=== PATIENT | female | born 1945 ===

== ENCOUNTER 2016-10-19 09:54 | Inpatient (IN) | payer OTHER ==
[2016-10-19] MEDS ORDERED: Morphine 4 mg/ml ISec IVP STA (10:34)
[2016-10-19] MEDS ORDERED: Sodium Chloride 0.9% 1,000 ML IV STA (10:34)
--- NOTE | 2016-10-19 10:38 | ED PDOC ---
Arrival/HPI - General Chief Complaint: Abdominal Pain Time Seen by Provider: 10/19/16 10:20 Historian: Patient - History of Present Illness Narrative History of Present Illness (Text): 10/19/16 10:35 A 70 year old female presents to the emergency room with complaints of abdominal pain for 2 days. Patient reports the pain is worst in the LLQ. Patient denies any nausea, vomiting, diarrhea, back pain, fever, any urinary symptoms, or any other complaints. Patient notes a 40 lbs weight loss within the last 6 months without dieting. Patient denies a history of smoking or ETOH use. PMD: Dr. Segal Time/Duration: < week (2 days) Symptom Onset: Sudden Symptom Course: Unchanged Severity Level: Moderate Activities at Onset: Light Context: Home Associated Symptoms (Text): 10/19/16 10:47 Two day history of abdominal pain with no nausea vomiting or diarrhea. No genitourinary symptoms. Pain seems to have localized in the left lower quadrant. There is also a 40 pound weight loss over the last 6 months. Past Medical History - Provider Review Nursing Documentation Reviewed: Yes - Infectious Disease Hx of Infectious Diseases: None - Reproductive Menopause: Yes - Cardiac Hx Cardiac Disorders: No Hx Hypertension: Yes - Pulmonary Hx Respiratory Disorders: No - Neurological Hx Neurological Disorder: No - HEENT Hx HEENT Disorder: No (WEARS RX GLASSES) - Renal Hx Renal Disorder: No - Endocrine/Metabolic Hx Endocrine Disorders: Yes Hx Hypothyroidism: Yes - Hematological/Oncological Hx Blood Disorders: No - Integumentary Hx Dermatological Disorder: No - Musculoskeletal/Rheumatological Hx Musculoskeletal Disorders: Yes Hx Falls: No Hx Unsteady Gait: Yes - Gastrointestinal Hx Gastrointestinal Disorders: Yes (CONSTIPATION,LOST 40 LBS WITHIN 2 MONTHS) Hx Diverticulitis: Yes (02/08/12) - Genitourinary/Gynecological Hx Genitourinary Disorders: Yes (URINARY FREQUENCY,UTERINE PROLAPSE) - Psychiatric Hx Psychophysiologic Disorder: No Hx Depression: No Hx Emotional Abuse: No Hx Physical Abuse: No Hx Substance Use: No - Anesthesia Hx Anesthesia: No Hx Anesthesia Reactions: No Hx Malignant Hyperthermia: No - Suicidal Assessment Feels Threatened In Home Enviroment: No Family/Social History - Physician Review Nursing Documentation Reviewed: Yes Family/Social History: No Known Family HX Smoking Status: Never Smoked Hx Alcohol Use: No Hx Substance Use: No Hx Substance Use Treatment: No Allergies/Home Meds Allergies/Adverse Reactions: Allergies No Known Allergies Allergy (Verified 02/15/15 18:33) Home Medications: Home Meds Medication Instructions Recorded Confirmed Lisinopril/Hydrochlorothiazide 1 tab PO DAILY 10/19/16 10/19/16 [Lisinopril-Hydrochlorothiazide 25 mg-20 mg] Warfarin [Coumadin] 5 mg PO DAILY 10/19/16 10/19/16 Review of Systems - Physician Review All systems were reviewed & negative as marked: Yes - Review of Systems Constitutional: Fatigue, Weight Change (40 lbs weight loss within the last 6 months without dieting). absent: Fevers, Night Sweats Respiratory: absent: SOB, Cough Cardiovascular: absent: Chest Pain, Palpitations, Syncope Gastrointestinal: Abdominal Pain (Worst in LLQ). absent: Diarrhea, Nausea, Vomiting Genitourinary Female: absent: Dysuria, Frequency, Hematuria, Vaginal Bleeding, Vaginal Discharge Musculoskeletal: absent: Back Pain Neurological: absent: Headache, Dizziness Physical Exam Vital Signs Reviewed: Yes Vital Signs Temp Pulse Resp BP Pulse Ox 10/19/16 14:44 75 18 130/60 97 10/19/16 12:10 72 14 130/64 98 10/19/16 11:08 73 18 158/79 H 97 10/19/16 10:13 98.4 F 84 16 164/82 H 96 Temperature: Afebrile Blood Pressure: Hypertensive Pulse: Regular Respiratory Rate: Normal Appearance: Positive for: Uncomfortable Pain Distress: Mild Mental Status: Positive for: Alert and Oriented X 3 - Systems Exam Head: Present: Atraumatic, Normocephalic Pupils: Present: PERRL Extroacular Muscles: Present: EOMI Conjunctiva: Present: Normal Mouth: Present: Moist Mucous Membranes Pharnyx: No: ERYTHEMA, EXUDATE, TONSILS ENLARGED Neck: Present: Normal Range of Motion. No: MIDLINE TENDERNESS, Paraspinal Tenderness Respiratory/Chest: Present: Clear to Auscultation, Good Air Exchange. No: Respiratory Distress, Accessory Muscle Use Cardiovascular: Present: Irregular Rhythm (Irregularly irregular rhythm. Normal rate). No: Tachycardic Abdomen: Present: Tenderness (Mild LLQ tenderness), Normal Bowel Sounds. No: Distention, Peritoneal Signs, Rebound, Guarding Back: Present: Other (Midline cervical scar). No: CVA Tenderness, Midline Tenderness, Paraspinal Tenderness Upper Extremity: Present: Normal Inspection, Normal ROM. No: Tenderness, Swelling Lower Extremity: Present: Normal Inspection, Normal ROM. No: Tenderness, Swelling Neurological: Present: GCS=15, CN II-XII Intact, Speech Normal, Motor Func Grossly Intact Skin: Present: Warm, Dry, Normal Color. No: Rashes Psychiatric: Present: Alert, Oriented x 3, Normal Insight, Normal Concentration Medical Decision Making ED Course and Treatment: 10/19/16 10:41 Impression: A 70 year old female with abdominal pain. Mild LLQ tenderness noted on PE. Plan: -- Abdomen & Pelvis CT -- EKG -- Chest X-ray -- Labs/Urinalysis -- Zofran & Morphine -- Reassess and disposition Progress Notes: 10/19/16 11:45 EKG shows atrial fibrillation rate approximately [address] and T- wave changes 10/19/16 12:49 Dr Segal refers to the hospitalist for admission - Lab Interpretations Lab Results: 10/19/16 11:00 10/19/16 11:00 Lab Results 10/19/16 11:00: Sodium 129 L, Potassium 3.9, Chloride 92 L, Carbon Dioxide 28, Anion Gap 13, BUN 12, Creatinine 0.7, Est GFR ( Amer) > 60, Est GFR (Non- Af Amer) > 60, Random Glucose 111 H, Calcium 9.4, Total Bilirubin 1.1, AST 20, ALT 24, Alkaline Phosphatase 93, Lactate Dehydrogenase 374, Total Creatine Kinase 64, Troponin I < 0.01, Total Protein 8.0, Albumin 4.2, Globulin 3.8, Albumin/Globulin Ratio 1.1, Amylase 54, Lipase 46 10/19/16 11:00: PT 31.4 H*, INR 2.91 H, APTT 42.8 H 10/19/16 11:00: WBC 8.4 D, RBC 4.71, Hgb 13.5, Hct 38.8, MCV 82.4, MCH 28.7, MCHC 34.8, RDW 13.8, Plt Count 225, MPV 10.9, Gran % 85.2 H, Lymph % (Auto) 7.6 L, [place] % (Auto) 7.0 H, Eos % (Auto) 0.1 L, Baso % (Auto) 0.1, Gran # 7.16 H, Lymph # 0.6 L, [place] # 0.6, Eos # 0.0, Baso # 0.01 I have reviewed the lab results: Yes - RAD Interpretation Radiology Orders: 10/19/16 10:34 ABD & PELVIS W/O PO OR IV CONT [CT] Stat 10/19/16 10:35 CHEST PORTABLE [RAD] Stat CT scan of the abdomen and pelvis is read by the radiologist shows acute diverticulitis with no abscess [employer]: Radiologist - Medication Orders Current Medication Orders: Hydrochlorothiazide (Hydrodiuril) 25 mg PO DAILY ANGELITA Sodium Chloride (Sodium Chloride 0.9%) 1,000 mls @ 100 mls/hr IV .Q10H STA Stop: 10/19/16 20:33 Last Admin: 10/19/16 11:13 Dose: 100 mls/hr Sodium Chloride (Sodium Chloride 0.9%) 100 mls @ 75 mls/hr IV .Q1H20M ANGELITA Ceftriaxone Sodium (Rocephin 1 Gram Ivpb) 1 gm in 100 mls @ 100 mls/hr IVPB DAILY ANGLEITA PRN Reason: Protocol Metronidazole (Flagyl) 500 mg in 100 mls @ 100 mls/hr IVPB Q8 ANGELITA PRN Reason: Protocol Levothyroxine Sodium (Synthroid) 88 mcg PO ACB ANGELITA Lisinopril (Zestril) 20 mg PO DAILY ANGELITA Morphine Sulfate (Morphine) 2 mg IVP Q6 PRN PRN Reason: Pain, severe (8-10) Morphine Sulfate (Morphine) 1 mg IVP Q6 PRN PRN Reason: Pain, moderate (4-7) Ondansetron HCl (Zofran Inj) 4 mg IVP Q4 PRN PRN Reason: Nausea/Vomiting Pantoprazole Sodium (Protonix Inj) 40 mg IVP DAILY ANGELITA Warfarin Sodium (Coumadin) 5 mg PO 1800 ANGELITA PRN Reason: Protocol Discontinued Medications Ciprofloxacin (Cipro 400mg/200ml Dsw) 400 mg in 200 mls @ 133.333 mls/hr IV STAT STA PRN Reason: Protocol Stop: 10/19/16 14:06 Last Admin: 10/19/16 14:19 Dose: 133.333 mls/hr Metronidazole (Flagyl) 500 mg in 100 mls @ 100 mls/hr IVPB STAT STA PRN Reason: Protocol Stop: 10/19/16 13:39 Last Admin: 10/19/16 13:00 Dose: 100 mls/hr Morphine Sulfate (Morphine) 4 mg IVP STAT STA Stop: 10/19/16 10:35 Last Admin: 10/19/16 11:13 Dose: 4 mg Non-Formulary Medication (Lisinopril/Hydrochlorothiazide [Lisinopril-Hctz 20-25 Mg Tab]) 1 tab PO DAILY ANGELITA Ondansetron HCl (Zofran Inj) 4 mg IVP STAT STA Stop: 10/19/16 10:35 Last Admin: 10/19/16 11:14 Dose: 4 mg - Scribe Statement The provider has reviewed the documentation as recorded by the Bee Gupta Provider Eleonoraibe Attestation: All medical record entries made by the Bee were at my direction and personally dictated by me. I have reviewed the chart and agree that the record accurately reflects my personal performance of the history, physical exam, medical decision making, and the department course for this patient. I have also personally directed, reviewed, and agree with the discharge instructions and disposition. Disposition/Present on Arrival - Present on Arrival Any Indicators Present on Arrival: No History of DVT/PE: No History of Uncontrolled Diabetes: No Urinary Catheter: No History of Decub. Ulcer: No History Surgical Site Infection Following: None - Disposition Have Diagnosis and Disposition been Completed?: Yes Diagnosis: Acute diverticulitis Disposition: HOSPITALIZED Disposition Time: 12:43 Patient Plan: Admission Patient Problems: Current Active Problems Problem Status Onset Acute diverticulitis Acute Condition: GOOD
[2016-10-19 11:08] LABS: ADD MANUAL DIFF? NO
[2016-10-19 11:15] LABS: BASO # 0.01 K/mm3 (0.0-2.0); BASO % 0.1 % (0.0-3.0); EOS % 0.1 % (1.5-5.0); GRAN # 7.16 (1.4-6.5); GRAN % 85.2 % (50.0-68.0); HEMATOCRIT 38.8 % (36.0-48.0); LYMPH # 0.6 (1.2-3.4); LYMPH % 7.6 % (22.0-35.0); MEAN CELL VOLUME 82.4 fL (80.0-105.0); MEAN CORPUSCULAR HEMOGLOBIN 28.7 pg (25.0-35.0); MEAN CORPUSCULAR HGB CONC 34.8 g/dl (31.0-37.0); MEAN PLATELET VOLUME 10.9 fl (7.0-11.0); MONO # 0.6 (0.1-0.6); PLATELET COUNT 225 10^3/uL (120.0-450.0); RED CELL DISTRIBUTION WIDTH 13.8 % (11.5-14.5); WHITE BLOOD COUNT 8.4 10^3/ul (4.5-11.0)
[2016-10-19 11:22] LABS: ALB/GLOB RATIO 1.1 (1.1-1.8); ALKALINE PHOSPHATASE 93 U/L (38-133); ALT/SGPT 24 U/L (7-56); AMYLASE 54 U/L (35-125); AST/SGOT 20 U/L (15-39); BILIRUBIN,TOTAL 1.1 mg/dL (0.2-1.3); BLOOD UREA NITROGEN 12 mg/dL (7-21); CALCIUM 9.4 mg/dL (8.4-10.5); CARBON DIOXIDE 28 mmol/L (21-33); CHLORIDE 92 mmol/L (98-107); GFR AFRICAN-AMERICAN > 60; GLUCOSE,RANDOM 111 mg/dL (70-110); LIPASE 46 U/L (23-300); POTASSIUM 3.9 mmol/L (3.6-5.0); SODIUM 129 mmol/L (132-148)
[2016-10-19 11:25] LABS: INR 2.91 (0.93-1.08); PARTIAL THROMBOPLASTIN TIME 42.8 Seconds (23.7-30.8)
[2016-10-19 11:40] LABS: TROPONIN I < 0.01 ng/mL
--- NOTE | 2016-10-19 12:18 | CT ---
PROCEDURE: CT Abdomen and Pelvis without intravenous contrast HISTORY: LLQ pain COMPARISON: 02/15/2015 TECHNIQUE: Without contrast.. Contrast Dose: 0 Radiation dose: Total exam DLP = 326.32 mGy-cm. This CT exam was performed using one or more of the following dose reduction techniques: Automated exposure control, adjustment of the mA and/or kV according to patient size, and/or use of iterative reconstruction technique. FINDINGS: LOWER THORAX: Unremarkable. LIVER: Unremarkable. No gross lesion or ductal dilatation. GALLBLADDER AND BILE DUCTS: Unremarkable. PANCREAS: Unremarkable. No gross lesion or ductal dilatation. SPLEEN: Unremarkable. ADRENALS: Mild bilateral adrenal hypertrophy, left greater than right. No adrenal mass. KIDNEYS AND URETERS: Left lower pole renal cyst, 3.9 cm diameter, unchanged. This measures 9 Hounsfield units. No other renal mass is identified. No renal calculus or hydronephrosis. VASCULATURE: Unremarkable. No aortic aneurysm. BOWEL: Sigmoid diverticulosis. Mural thickening of sigmoid colon with surrounding inflammatory change and small amount fluid, consistent with acute sigmoid diverticulitis. No evidence of abscess. No bowel obstruction. There are scattered colonic diverticulae elsewhere. APPENDIX: Unremarkable. Normal appendix. PERITONEUM: Trace fluid in cul-de-sac. LYMPH NODES: Unremarkable. No enlarged lymph nodes. BLADDER: Unremarkable. REPRODUCTIVE: Unremarkable uterus. Left pelvic low-density mass, 4.2 cm. Previously, this measured 3.8 cm on examination of 02/15/2015 and 3.2 cm on examination of 02/08/2012. . This may be of ovarian origin. It measures 8 Hounsfield units in attenuation and is likely cystic. This should be further evaluated with pelvic ultrasound examination. This is abnormal in a 70-year-old woman. BONES: No acute fracture. OTHER FINDINGS: None. IMPRESSION: Findings consistent with acute sigmoid diverticulitis without evidence of abscess. No free air. Slowly enlarging fluid density left adnexal mass. Further evaluation with pelvic ultrasound examination is advised. Left lower pole renal cyst. No other acute abnormality.
--- NOTE | 2016-10-19 12:29 | RAD ---
HISTORY: ap COMPARISON: 02/15/2015 FINDINGS: LUNGS: No active pulmonary disease. PLEURA: No significant pleural effusion identified, no pneumothorax apparent. CARDIOVASCULAR: Normal. OSSEOUS STRUCTURES: No significant abnormalities. VISUALIZED UPPER ABDOMEN: Normal. OTHER FINDINGS: None. IMPRESSION: No active disease.
[2016-10-19] MEDS ORDERED: Ciprofloxacin 400mg/200ml D5W 400 MG/200 ML BAG IV STA (12:37)
[2016-10-19] MEDS ORDERED: metroNIDAZOLE IV 500 mg/100 ml 500 MG/100 ML BAG IVPB STA (12:40)
[2016-10-19 13:19] LABS: URINE BILIRUBIN NEGATIVE (NEGATIVE); URINE BLOOD TRACE-INTACT (NEGATIVE); URINE GLUCOSE (UA) NEGATIVE (NEGATIVE); URINE KETONE 15 mg/dL (NEGATIVE); URINE LEUKOCYTE ESTERASE NEGATIVE Leu/uL (NEGATIVE); URINE PROTEIN NEGATIVE mg/dL (<30 mg/dL); URINE UROBILINOGEN 0.2 E.U./dL (<1 E.U./dL)
[2016-10-19 13:22] LABS: URINE APPEARANCE CLEAR (CLEAR); URINE COLOR YELLOW (YELLOW)
[2016-10-19 13:31] LABS: URINE BACTERIA MOD (NEG)
[2016-10-19] MEDS ORDERED: Morphine 2 mg/ml ISec IVP PRN (13:58)
--- NOTE | 2016-10-19 14:42 | CP.PCM.HP ---
<Merle Mishra - Last Filed: 10/19/16 14:44> History of Present Illness - History of Present Illness History of Present Illness: 70 yo F w/PMHx of [place] on coumadin, hypothyroidism, HTN, diverticulitis, presents with four days of L sided abdominal pain. Denies fever, chest pain, N/ V, diarrhea/constipation, but has SOB with exertion, and 40 lbs weight loss in past few months w/o trying to. Previous admission on 02/08 at [facility] [place] for acute diverticulitis. PMD: dr. jung cardiology: dr pang PMhx: [place] on coumadin, hypothyroidism, HTN, diverticulitis, uterine prolapse Psxhx: denies medications: levothyroxine 88 mcg PO, lisinopril-hctz 25/20mg 1 tab PO qd, coumadin 5mg PO qd all: NKDA social: denies smoking, etoh, illicit drugs Present on Admission - Present on Admission Any Indicators Present on Admission: No Review of Systems - Review of Systems All systems: reviewed and no additional remarkable complaints except - Constitutional Constitutional: Weight Loss. absent: Fever - Cardiovascular Cardiovascular: absent: Chest Pain, Pedal Edema - Gastrointestinal Gastrointestinal: Abdominal Pain. absent: Constipation, Diarrhea - Genitourinary Genitourinary: Change in Urinary Stream. absent: Hematuria Past Patient History - Infectious Disease Hx of Infectious Diseases: None - Past Social History Smoking Status: Never Smoked - CARDIAC Hx Cardiac Disorders: No Hx Hypertension: Yes - PULMONARY Hx Respiratory Disorders: No - NEUROLOGICAL Hx Neurological Disorder: No - HEENT Hx HEENT Problems: No (WEARS RX GLASSES) - RENAL Hx Chronic Kidney Disease: No - ENDOCRINE/METABOLIC Hx Endocrine Disorders: Yes Hx Hypothyroidism: Yes - HEMATOLOGICAL/ONCOLOGICAL Hx Blood Disorders: No - INTEGUMENTARY Hx Dermatological Problems: No - MUSCULOSKELETAL/RHEUMATOLOGICAL Hx Musculoskeletal Disorders: Yes Hx Falls: No Hx Unsteady Gait: Yes - GASTROINTESTINAL Hx Gastrointestinal Disorders: Yes (CONSTIPATION,LOST 40 LBS WITHIN 2 MONTHS) Hx Diverticulitis: Yes (02/08/12) - GENITOURINARY/GYNECOLOGICAL Hx Genitourinary Disorders: Yes (URINARY FREQUENCY,UTERINE PROLAPSE) - PSYCHIATRIC Hx Psychophysiologic Disorder: No Hx Depression: No Hx Emotional Abuse: No Hx Physical Abuse: No Hx Substance Use: No - SURGICAL HISTORY Hx Surgeries: No - ANESTHESIA Hx Anesthesia: No Hx Anesthesia Reactions: No Hx Malignant Hyperthermia: No Meds Allergies/Adverse Reactions: Allergies Allergy/AdvReac Type Severity Reaction Status Date / Time No Known Allergies Allergy Verified 02/15/15 18:33 Physical Exam - Constitutional Appears: Non-toxic, No Acute Distress - Head Exam Head Exam: ATRAUMATIC, NORMOCEPHALIC - Eye Exam Eye Exam: EOMI, Normal appearance - Respiratory Exam Respiratory Exam: Clear to Auscultation Bilateral, NORMAL BREATHING PATTERN - Cardiovascular Exam Cardiovascular Exam: +S1, +S2. absent: Bradycardia - GI/Abdominal Exam GI & Abdominal Exam: Soft. absent: Tenderness - Extremities Exam Extremities exam: Positive for: normal capillary refill. Negative for: pedal edema - Neurological Exam Neurological exam: Alert, Oriented x3 - Skin Skin Exam: Intact, Normal Color Results - Vital Signs Recent Vital Signs: Last Vital Signs Temp 98.4 F 10/19/16 10:13 Pulse 72 10/19/16 12:10 Resp 14 10/19/16 12:10 BP 130/64 10/19/16 12:10 Pulse Ox 98 10/19/16 12:10 - Labs Result Diagrams: 10/19/16 11:00 10/19/16 11:00 Labs: Laboratory Results - last 24 hr 10/19/16 13:00 Urine Color Yellow Urine Appearance Clear Urine pH 7.0 Ur Specific [place] <= 1.005 Urine Protein Negative Urine Glucose (UA) Negative Urine Ketones 15 H Urine Blood Trace-intact H Urine Nitrate Negative Urine Bilirubin Negative Urine Urobilinogen 0.2 Ur Leukocyte Esterase Negative Urine RBC 2 - 5 Urine WBC 2 - 5 Ur Epithelial Cells 3 - 4 Urine Bacteria Mod Assessment & Plan - Assessment and Plan (Free Text) Plan: 70 yo F w/PMHx of a.fib on coumadin, diverticulitis, htn, hypothyroidism, presents with 4 day of L abd pain. CT positive for acute sigmoid diverticulitis and L adnexal mass diverticulitis: clear liquid diet trial ceftriaxone, flagyl GI consult, help appreciated NS 75/hr protonix zofran morphine prn for pain HTN: lisinopril/hctz a.fib: coumadin on hold for inr 2.9 repeat inr tomorrow hypothyroidism: levothyroxine 88mcg L adnexal mass: pelvic US ordered ppx measures: protonix coumadin on hold for today, repeat inr for tomorrow <Yamila Waite - Last Filed: 10/19/16 16:26> Results - Vital Signs Recent Vital Signs: Last Vital Signs Temp 98.4 F 10/19/16 10:13 Pulse 75 10/19/16 14:44 Resp 18 10/19/16 14:44 BP 130/60 10/19/16 14:44 Pulse Ox 97 10/19/16 14:44 - Labs Result Diagrams: 10/19/16 11:00 10/19/16 11:00 Labs: Laboratory Results - last 24 hr 10/19/16 13:00 Urine Color Yellow Urine Appearance Clear Urine pH 7.0 Ur Specific [place] <= 1.005 Urine Protein Negative Urine Glucose (UA) Negative Urine Ketones 15 H Urine Blood Trace-intact H Urine Nitrate Negative Urine Bilirubin Negative Urine Urobilinogen 0.2 Ur Leukocyte Esterase Negative Urine RBC 2 - 5 Urine WBC 2 - 5 Ur Epithelial Cells 3 - 4 Urine Bacteria Mod Attending/Attestation - Attestation I have personally seen and examined this patient.: Yes I have fully participated in the care of the patient.: Yes I have reviewed all pertinent clinical information: Yes Notes (Text): 10/19/16 16:23 70 year old female with past medical history of chronic afib, diverticulitis, hypertension and hypothyroidism who presents with complaint of left sided abdominal pain. CT scan showed acute sigmoid diverticulitis and left adnexal mass. GI evaluation was appreciated. Continue with liquid diet and advance as tolerated. Continue with iv fluids, protonix, antibiotics, and analgesics. Pelvic ultrasound is ordered to evaluate left adnexal mass. She is on coumadin for afib. INR is 2.9 today. Will hold tonight's dose of coumadin and repeat in AM. Continue with home medications for hypertension and hypothyroidism. Yamila Waite MD Hospitalist.
--- NOTE | 2016-10-19 15:41 | CP.PCM.CON ---
<Khloe Hannah - Last Filed: 10/19/16 16:41> History of Present Illness - History of Present Illness History of Present Illness: Gastroenterology Fellow/PGY4 Consult Note 70 year old female with history of Hypertension, Atrial fibrillation on Coumadin , Hypothyroidism, and diverticulitis 01/2015 presenting with abdominal pain. Patient and at bedside describe onset of left lower abdomen pain for four days. Associated loss of appetite and chills for the last two days. Patient saw her PCP last week with recommendation of Probiotics taken for the last two days. Notes small formed bowel movement yesterday with usual bowel habits ever one to two days. Patient notes intermittent constipation relieved by increased food fiber intake and water. Patient with confirm a 44 pound unintentional weight loss over the last two years. Denies nausea, vomiting , fever, sweats, diarrhea, unusual foods, sick contacts, or recent antibiotics. States colonoscopy in 2010 endorsed to be normal. Family-denies colon cancer Social-denies tobacco, alcohol, illicit drug use Surgery-none Review of Systems - Review of Systems Review of Systems: A 12-point review of systems negative except for as above Past Patient History - Infectious Disease Hx of Infectious Diseases: None - Past Social History Smoking Status: Never Smoked - CARDIAC Hx Cardiac Disorders: No Hx Hypertension: Yes - PULMONARY Hx Respiratory Disorders: No - NEUROLOGICAL Hx Neurological Disorder: No - HEENT Hx HEENT Problems: No (WEARS RX GLASSES) - RENAL Hx Chronic Kidney Disease: No - ENDOCRINE/METABOLIC Hx Endocrine Disorders: Yes Hx Hypothyroidism: Yes - HEMATOLOGICAL/ONCOLOGICAL Hx Blood Disorders: No - INTEGUMENTARY Hx Dermatological Problems: No - MUSCULOSKELETAL/RHEUMATOLOGICAL Hx Musculoskeletal Disorders: Yes Hx Falls: No Hx Unsteady Gait: Yes - GASTROINTESTINAL Hx Gastrointestinal Disorders: Yes (CONSTIPATION,LOST 40 LBS WITHIN 2 MONTHS) Hx Diverticulitis: Yes (02/08/12) - GENITOURINARY/GYNECOLOGICAL Hx Genitourinary Disorders: Yes (URINARY FREQUENCY,UTERINE PROLAPSE) - PSYCHIATRIC Hx Psychophysiologic Disorder: No Hx Depression: No Hx Emotional Abuse: No Hx Physical Abuse: No Hx Substance Use: No - SURGICAL HISTORY Hx Surgeries: No - ANESTHESIA Hx Anesthesia: No Hx Anesthesia Reactions: No Hx Malignant Hyperthermia: No Meds Allergies/Adverse Reactions: Allergies Allergy/AdvReac Type Severity Reaction Status Date / Time No Known Allergies Allergy Verified 02/15/15 18:33 - Medications Medications: Current Medications Hydrochlorothiazide (Hydrodiuril) 25 mg PO DAILY [facility] Sodium Chloride (Sodium Chloride 0.9%) 1,000 mls @ 100 mls/hr IV .Q10H STA Stop: 10/19/16 20:33 Last Admin: 10/19/16 11:13 Dose: 100 mls/hr Sodium Chloride (Sodium Chloride 0.9%) 100 mls @ 75 mls/hr IV .Q1H20M [facility] Ceftriaxone Sodium (Rocephin 1 Gram Ivpb) 1 gm in 100 mls @ 100 mls/hr IVPB DAILY [facility] PRN Reason: Protocol Metronidazole (Flagyl) 500 mg in 100 mls @ 100 mls/hr IVPB Q8 [facility] PRN Reason: Protocol Levothyroxine Sodium (Synthroid) 88 mcg PO ACB [facility] Lisinopril (Zestril) 20 mg PO DAILY [facility] Morphine Sulfate (Morphine) 2 mg IVP Q6 PRN PRN Reason: Pain, severe (8-10) Morphine Sulfate (Morphine) 1 mg IVP Q6 PRN PRN Reason: Pain, moderate (4-7) Ondansetron HCl (Zofran Inj) 4 mg IVP Q4 PRN PRN Reason: Nausea/Vomiting Pantoprazole Sodium (Protonix Inj) 40 mg IVP DAILY [facility] Warfarin Sodium (Coumadin) 5 mg PO 1800 [facility] PRN Reason: Protocol Physical Exam - Constitutional Appears: Non-toxic, No Acute Distress - Head Exam Head Exam: ATRAUMATIC, NORMOCEPHALIC - Eye Exam Eye Exam: EOMI, PERRL Pupil Exam: PERRL. absent: Miosis, Mydriatic - ENT Exam ENT Exam: Mucous Membranes Moist, Normal Oropharynx - Neck Exam Neck exam: Positive for: Full Rom, Normal Inspection - Respiratory Exam Respiratory Exam: Clear to Auscultation Bilateral. absent: Rales, Rhonchi, Wheezes - Cardiovascular Exam Cardiovascular Exam: RRR, +S1, +S2. absent: Gallop, Rubs - GI/Abdominal Exam GI & Abdominal Exam: Normal Bowel Sounds, Soft, Tenderness. absent: Distended, Firm, Guarding, Organomegaly, Rebound, Rigid Additional comments: LLQ tenderness to palpation - Extremities Exam Extremities exam: Positive for: normal inspection. Negative for: pedal edema - Neurological Exam Neurological exam: Alert - Psychiatric Exam Psychiatric exam: Normal Affect, Normal Mood - Skin Skin Exam: Dry, Intact, Normal Color, Warm Results - Vital Signs Recent Vital Signs: Last Vital Signs Temp 98.4 F 10/19/16 10:13 Pulse 75 10/19/16 14:44 Resp 18 10/19/16 14:44 BP 130/60 10/19/16 14:44 Pulse Ox 97 10/19/16 14:44 - Labs Result Diagrams: 10/19/16 11:00 10/19/16 11:00 Labs: Laboratory Results - last 24 hr 10/19/16 13:00 Urine Color Yellow Urine Appearance Clear Urine pH 7.0 Ur Specific [place] <= 1.005 Urine Protein Negative Urine Glucose (UA) Negative Urine Ketones 15 H Urine Blood Trace-intact H Urine Nitrate Negative Urine Bilirubin Negative Urine Urobilinogen 0.2 Ur Leukocyte Esterase Negative Urine RBC 2 - 5 Urine WBC 2 - 5 Ur Epithelial Cells 3 - 4 Urine Bacteria Mod Assessment & Plan - Assessment and Plan (Free Text) Assessment: 70 year old female with history of Hypertension, Atrial fibrillation on Coumadin , Hypothyroidism, and diverticulitis 01/2015 presenting with abdominal pain. Note of [address] A/P showing sigmoid diverticulitis and left adnexal 4.2cm mass enlarged compared to pervious studies. States colonoscopy in 2010 endorsed to be normal. Plan: >continue Cipro, Flagyl >supportive care: IVFs, pain control >trial clear liquids, advacne as tolerated >diverticulitis 01/2015 -endorses lost to follow up for colonoscopy surveillance due to loss of insurance >will benefit from colonoscopy with recurrent diverticulitis and unintentional weight loss in 6 to 8 weeks >further recommendations based on clinical course <Giovani Lee - Last Filed: 10/19/16 19:33> Meds - Medications Medications: Current Medications Acetaminophen (Tylenol 325 Mg Supp) 325 mg RC Q6H PRN PRN Reason: Fever >100.4 F Hydrochlorothiazide (Hydrodiuril) 25 mg PO DAILY [facility] Sodium Chloride (Sodium Chloride 0.9%) 1,000 mls @ 100 mls/hr IV .Q10H STA Stop: 10/19/16 20:33 Last Admin: 10/19/16 11:13 Dose: 100 mls/hr Sodium Chloride (Sodium Chloride 0.9%) 100 mls @ 75 mls/hr IV .Q1H20M [facility] Ceftriaxone Sodium (Rocephin 1 Gram Ivpb) 1 gm in 100 mls @ 100 mls/hr IVPB DAILY [facility] PRN Reason: Protocol Last Admin: 10/19/16 15:58 Dose: 100 mls/hr Metronidazole (Flagyl) 500 mg in 100 mls @ 100 mls/hr IVPB Q8 [facility] PRN Reason: Protocol Levothyroxine Sodium (Synthroid) 88 mcg PO ACB [facility] Lisinopril (Zestril) 20 mg PO DAILY [facility] Morphine Sulfate (Morphine) 2 mg IVP Q6 PRN PRN Reason: Pain, severe (8-10) Morphine Sulfate (Morphine) 1 mg IVP Q6 PRN PRN Reason: Pain, moderate (4-7) Ondansetron HCl (Zofran Inj) 4 mg IVP Q4 PRN PRN Reason: Nausea/Vomiting Pantoprazole Sodium (Protonix Inj) 40 mg IVP DAILY [facility] Warfarin Sodium (Coumadin) 5 mg PO 1800 [facility] PRN Reason: Protocol Results - Vital Signs Recent Vital Signs: Last Vital Signs Temp 98.1 F 10/19/16 16:20 Pulse 58 L 10/19/16 16:20 Resp 18 10/19/16 16:20 BP 143/60 10/19/16 16:20 Pulse Ox 98 10/19/16 16:00 - Labs Result Diagrams: 10/19/16 11:00 10/19/16 11:00 Labs: Laboratory Results - last 24 hr 10/19/16 13:00 Urine Color Yellow Urine Appearance Clear Urine pH 7.0 Ur Specific [place] <= 1.005 Urine Protein Negative Urine Glucose (UA) Negative Urine Ketones 15 H Urine Blood Trace-intact H Urine Nitrate Negative Urine Bilirubin Negative Urine Urobilinogen 0.2 Ur Leukocyte Esterase Negative Urine RBC 2 - 5 Urine WBC 2 - 5 Ur Epithelial Cells 3 - 4 Urine Bacteria Mod Attending/Attestation - Attestation I have personally seen and examined this patient.: Yes I have fully participated in the care of the patient.: Yes I have reviewed all pertinent clinical information: Yes Notes (Text): 10/19/16 19:32 70 year old female with history of HTN, Afib, h/o diverticulitis who presents with LLQ pain found to have acute sigmoid diverticulitis. 1. Acute diverticulitis Plan: -continue antibiotics -liquid diet and ADAT -no apparent complications like perf or abscess -colonoscopy in 6-8 weeks -agree with workup for adnexal mass
[2016-10-19] MEDS: cefTRIAXone 1 gm 1 GM/100 ML BAG IVPB SCH (15:58)
[2016-10-19 16:41] VITALS: BMI 25.4
[2016-10-19] MEDS: metroNIDAZOLE IV 500 mg/100 ml 500 MG/100 ML BAG IVPB SCH (21:33)
[2016-10-19] MEDS: Morphine 2 mg/ml ISec IVP PRN (21:33)
[2016-10-19] MEDS: Sodium Chloride 0.9% 100 ML IV SCH (23:38)
[2016-10-20] MEDS: Sodium Chloride 0.9% 100 ML IV SCH (05:31)
[2016-10-20] MEDS: Morphine 2 mg/ml ISec IVP PRN ×3 (05:36→21:09)
[2016-10-20] MEDS: metroNIDAZOLE IV 500 mg/100 ml 500 MG/100 ML BAG IVPB SCH ×3 (05:36→21:12)
[2016-10-20 07:09] LABS: ADD MANUAL DIFF? NO
[2016-10-20 07:18] LABS: BASO # 0.01 K/mm3 (0.0-2.0); BASO % 0.1 % (0.0-3.0); EOS % 0.2 % (1.5-5.0); GRAN # 6.44 (1.4-6.5); GRAN % 79.3 % (50.0-68.0); HEMATOCRIT 34.3 % (36.0-48.0); LYMPH # 0.9 (1.2-3.4); LYMPH % 11.2 % (22.0-35.0); MEAN CELL VOLUME 84.3 fL (80.0-105.0); MEAN CORPUSCULAR HEMOGLOBIN 28.3 pg (25.0-35.0); MEAN CORPUSCULAR HGB CONC 33.5 g/dl (31.0-37.0); MONO # 0.8 (0.1-0.6); MONO % 9.2 % (1.0-6.0); PLATELET COUNT 202 10^3/uL (120.0-450.0); RED CELL DISTRIBUTION WIDTH 14.2 % (11.5-14.5); WHITE BLOOD COUNT 8.1 10^3/ul (4.5-11.0)
[2016-10-20 07:30] LABS: ALKALINE PHOSPHATASE 70 U/L (38-133); ALT/SGPT 22 U/L (7-56); AST/SGOT 19 U/L (15-39); BILIRUBIN,TOTAL 0.6 mg/dL (0.2-1.3); BLOOD UREA NITROGEN 8 mg/dL (7-21); CALCIUM 8.6 mg/dL (8.4-10.5); CARBON DIOXIDE 27 mmol/L (21-33); CHLORIDE 100 mmol/L (95-110); GFR AFRICAN-AMERICAN > 60; GLUCOSE,RANDOM 85 mg/dL (70-110); POTASSIUM 4.5 mmol/L (3.6-5.0); SODIUM 136 mmol/L (132-148); TOTAL PROTEIN 6.4 g/dL (5.8-8.3)
[2016-10-20 07:53] LABS: INR 3.59 (0.93-1.08)
[2016-10-20] MEDS: Levothyroxine 88 MCG TAB PO SCH (08:19)
--- NOTE | 2016-10-20 09:47 | US ---
HISTORY: L adnexal mass COMPARISON: CT abdomen and pelvis 10/19/2016 TECHNIQUE: Transabdominal is the technique utilized FINDINGS: UTERUS: Measures 6.1 x 2.5 x 3.9 cm. Heterogeneous in appearance and anteverted . Probable intrinsic chronic/mild fibroid involvement ENDOMETRIUM: Measures 3.2 mm in diameter. Unremarkable. CERVIX: No cervical abnormality identified. RIGHT OVARY: Not visualized LEFT OVARY: No normal-appearing left ovary is visualized. In the left adnexum there is a 4.1 x 4.0 cm cystic appearing mass. No gross mural thickening or septations are appreciated. The cystic mass is in close proximity with peristalsing heterogeneous bowel on this exam is also noted just cephalad to extensive rectosigmoid diverticulosis and reported findings of diverticulitis FREE FLUID: No significant free fluid noted. OTHER FINDINGS: None. IMPRESSION: Left adnexal cystic mass - approximately 4.1 cm. No normal identifiable ovary contiguous with it is identified. Given patient's advanced age of 70, nonvisualized ovaries are not an uncommon Nevertheless this cystic mass is indeterminate and an abnormal finding in a 70-year-old female. The etiology of this is uncertain. No mural thickening or septations are seen associated with it. Note is made of its proximity with the rectosigmoid diverticulosis and diverticulitis reported. No thickened wall or inflammatory changes intrinsic to the cystic mass on ultrasound or on CT is seen to suggest an abscess or phlegmon. Bar Captain consultation recommended
[2016-10-20] MEDS: cefTRIAXone 1 gm 1 GM/100 ML BAG IVPB SCH (10:11)
--- NOTE | 2016-10-20 10:48 | CP.PCM.PN ---
<TadMerle - Last Filed: 10/20/16 16:09> Subjective - Date & Time of Evaluation Date of Evaluation: 10/20/16 Time of Evaluation: 07:45 - Subjective Subjective: Pt seen and evaluated at bedside. Pt denies SOB, had decreased L abdominal pain , urinary symptoms, and had last BM 2 days prior. Afebrile overnight. Objective - Vital Signs/Intake and Output Vital Signs (last 24 hours): Temp Pulse Resp BP Pulse Ox 97.7 F 59 L 20 135/59 L 99 10/20/16 07:30 10/20/16 07:30 10/20/16 07:30 10/20/16 07:30 10/20/16 07:30 Intake and Output: 10/20/16 10/20/16 06:59 18:59 Intake Total 100 Balance 100 - Medications Medications: Current Medications Acetaminophen (Tylenol 325 Mg Supp) 325 mg RC Q6H PRN PRN Reason: Fever >100.4 F Hydrochlorothiazide (Hydrodiuril) 25 mg PO DAILY [facility] Sodium Chloride (Sodium Chloride 0.9%) 100 mls @ 75 mls/hr IV .Q1H20M [facility] Last Admin: 10/20/16 05:31 Dose: 75 mls/hr Ceftriaxone Sodium (Rocephin 1 Gram Ivpb) 1 gm in 100 mls @ 100 mls/hr IVPB DAILY [facility] PRN Reason: Protocol Last Admin: 10/20/16 10:11 Dose: 100 mls/hr Metronidazole (Flagyl) 500 mg in 100 mls @ 100 mls/hr IVPB Q8 [facility] PRN Reason: Protocol Last Admin: 10/20/16 05:36 Dose: 100 mls/hr Levothyroxine Sodium (Synthroid) 88 mcg PO ACB [facility] Last Admin: 10/20/16 08:19 Dose: 88 mcg Lisinopril (Zestril) 20 mg PO DAILY [facility] Morphine Sulfate (Morphine) 2 mg IVP Q6 PRN PRN Reason: Pain, severe (8-10) Last Admin: 10/20/16 05:36 Dose: 2 mg Morphine Sulfate (Morphine) 1 mg IVP Q6 PRN PRN Reason: Pain, moderate (4-7) Ondansetron HCl (Zofran Inj) 4 mg IVP Q4 PRN PRN Reason: Nausea/Vomiting Pantoprazole Sodium (Protonix Inj) 40 mg IVP DAILY [facility] Last Admin: 10/20/16 10:11 Dose: 40 mg Warfarin Sodium (Coumadin) 5 mg PO 1800 [facility] PRN Reason: Protocol - Labs Labs: 10/20/16 06:30 10/20/16 06:30 PT 38.8 Seconds (9.9-11.8) H* 10/20/16 06:30 INR 3.59 (0.93-1.08) H* 10/20/16 06:30 APTT 42.8 Seconds (23.7-30.8) H 10/19/16 11:00 - Constitutional Appears: Non-toxic, No Acute Distress - Head Exam Head Exam: ATRAUMATIC, NORMOCEPHALIC - Eye Exam Eye Exam: EOMI, Normal appearance - Respiratory Exam Respiratory Exam: Clear to Ausculation Bilateral, NORMAL BREATHING PATTERN - Cardiovascular Exam Cardiovascular Exam: +S1, +S2. absent: Tachycardia - GI/Abdominal Exam GI & Abdominal Exam: Soft. absent: Tenderness - Exam External exam: absent: Ecchymosis, Erythema - Neurological Exam Neurological Exam: Alert, Awake - Skin Skin Exam: Intact, Normal Color Assessment and Plan - Assessment and Plan (Free Text) Plan: 70 yo F w/PMHx of a.fib on coumadin, diverticulitis, htn, hypothyroidism, intially presents with 4 days of L abd pain, and 40 lbs unintentional weight loss over [address] positive for acute sigmoid diverticulitis and L adnexal mass diverticulitis: GI consult, help appreciated rec of out patient colonoscopy for diverticulitis in 6 to 8 weeks from d/c soft diet, ADAT ceftriaxone, flagyl protonix zofran morphine prn for pain HTN: lisinopril, hctz a.fib: coumadin on hold for inr 3.59 repeat inr tomorrow hypothyroidism: levothyroxine 88mcg L adnexal mass: near sigmoid diverticulitis and measuring 4.1 cm on pelvic U/S. Attending spoke to Dr. trujillo, concerning L adnexal cystic mass of 4.1 cm, and he rec'd out patient gynecology. ppx measures: protonix coumadin on hold for today, repeat inr for tomorrow <Yamila Waite A - Last Filed: 10/20/16 16:17> Objective - Vital Signs/Intake and Output Vital Signs (last 24 hours): Temp Pulse Resp BP Pulse Ox 97.7 F 59 L 20 168/86 H 99 10/20/16 07:30 10/20/16 07:30 10/20/16 07:30 10/20/16 15:43 10/20/16 07:30 Intake and Output: 10/20/16 10/20/16 06:59 18:59 Intake Total 100 840 Balance 100 840 - Medications Medications: Current Medications Acetaminophen (Tylenol 325 Mg Supp) 325 mg RC Q6H PRN PRN Reason: Fever >100.4 F Hydrochlorothiazide (Hydrodiuril) 25 mg PO DAILY [facility] Sodium Chloride (Sodium Chloride 0.9%) 100 mls @ 75 mls/hr IV .Q1H20M [facility] Last Admin: 10/20/16 05:31 Dose: 75 mls/hr Ceftriaxone Sodium (Rocephin 1 Gram Ivpb) 1 gm in 100 mls @ 100 mls/hr IVPB DAILY [facility] PRN Reason: Protocol Last Admin: 10/20/16 10:11 Dose: 100 mls/hr Metronidazole (Flagyl) 500 mg in 100 mls @ 100 mls/hr IVPB Q8 [facility] PRN Reason: Protocol Last Admin: 10/20/16 13:25 Dose: 100 mls/hr Levothyroxine Sodium (Synthroid) 88 mcg PO ACB [facility] Last Admin: 10/20/16 08:19 Dose: 88 mcg Lisinopril (Zestril) 20 mg PO DAILY [facility] Morphine Sulfate (Morphine) 2 mg IVP Q6 PRN PRN Reason: Pain, severe (8-10) Last Admin: 10/20/16 10:52 Dose: 2 mg Morphine Sulfate (Morphine) 1 mg IVP Q6 PRN PRN Reason: Pain, moderate (4-7) Ondansetron HCl (Zofran Inj) 4 mg IVP Q4 PRN PRN Reason: Nausea/Vomiting Pantoprazole Sodium (Protonix Inj) 40 mg IVP DAILY [facility] Last Admin: 10/20/16 10:11 Dose: 40 mg Warfarin Sodium (Coumadin) 5 mg PO 1800 [facility] PRN Reason: Protocol - Labs Labs: 10/20/16 06:30 10/20/16 06:30 PT 38.8 Seconds (9.9-11.8) H* 10/20/16 06:30 INR 3.59 (0.93-1.08) H* 10/20/16 06:30 APTT 42.8 Seconds (23.7-30.8) H 10/19/16 11:00 Attending/Attestation - Attestation I have personally seen and examined this patient.: Yes I have fully participated in the care of the patient.: Yes I have reviewed all pertinent clinical information, including history, physical exam and plan: Yes Notes (Text): 10/20/16 16:14 70 year old female with past medical history of chronic afib, diverticulitis, hypertension and hypothyroidism who presented with complaint of left sided abdominal pain. CT scan showed acute sigmoid diverticulitis and left adnexal mass. Her symptoms are improving with iv fluids, analgesics and antibiotics. GI is following. She is on liquid diet; can advance as tolerated. She will need elective colonoscopy in 6-8 weeks. Pelvic ultrasound reviewed above for left adnexal mass. Case was discussed with Dr. Trujillo, locker plant attendant, who also reviewed case and films in addition to her last CT showing the adnexal mass. He recommended close outpatient gynecology follow up. This was discussed with patient, family as well as Dr. Segal who is the patient's PMD. Her INR today is 3.59 so we will hold her coumadin for today. Repeat INR in AM. Continue with home medications for hypertension and hypothyroidism. Yamila Waite MD Hospitalist.
--- NOTE | 2016-10-20 13:15 | CARD ---
APPROVED REPORT EKG Measurement Heart [id number] <Conclusion> Atrial fibrillation Nonspecific T wave abnormality, probably digitalis effect Abnormal ECG
--- NOTE | 2016-10-20 16:24 | CP.PCM.PN ---
<Khloe Hannah - Last Filed: 10/20/16 16:28> Subjective - Date & Time of Evaluation Date of Evaluation: 10/20/16 Time of Evaluation: 16:21 - Subjective Subjective: Gastroenterology Fellow/PGY4 Progress Note Patient notes moderate improvement in left lower abdomen pain. No bowel movement. Tolerating clear liquid diet. A 12-point review of systems negative except for as above. Objective - Vital Signs/Intake and Output Vital Signs (last 24 hours): Temp Pulse Resp BP Pulse Ox 97.7 F 59 L 20 168/86 H 99 10/20/16 07:30 10/20/16 07:30 10/20/16 07:30 10/20/16 15:43 10/20/16 07:30 Intake and Output: 10/20/16 10/20/16 06:59 18:59 Intake Total 100 840 Balance 100 840 - Medications Medications: Current Medications Acetaminophen (Tylenol 325 Mg Supp) 325 mg RC Q6H PRN PRN Reason: Fever >100.4 F Hydrochlorothiazide (Hydrodiuril) 25 mg PO DAILY [facility] Sodium Chloride (Sodium Chloride 0.9%) 100 mls @ 75 mls/hr IV .Q1H20M [facility] Last Admin: 10/20/16 05:31 Dose: 75 mls/hr Ceftriaxone Sodium (Rocephin 1 Gram Ivpb) 1 gm in 100 mls @ 100 mls/hr IVPB DAILY [facility] PRN Reason: Protocol Last Admin: 10/20/16 10:11 Dose: 100 mls/hr Metronidazole (Flagyl) 500 mg in 100 mls @ 100 mls/hr IVPB Q8 [facility] PRN Reason: Protocol Last Admin: 10/20/16 13:25 Dose: 100 mls/hr Levothyroxine Sodium (Synthroid) 88 mcg PO ACB [facility] Last Admin: 10/20/16 08:19 Dose: 88 mcg Lisinopril (Zestril) 20 mg PO DAILY [facility] Morphine Sulfate (Morphine) 2 mg IVP Q6 PRN PRN Reason: Pain, severe (8-10) Last Admin: 10/20/16 10:52 Dose: 2 mg Morphine Sulfate (Morphine) 1 mg IVP Q6 PRN PRN Reason: Pain, moderate (4-7) Ondansetron HCl (Zofran Inj) 4 mg IVP Q4 PRN PRN Reason: Nausea/Vomiting Pantoprazole Sodium (Protonix Inj) 40 mg IVP DAILY [facility] Last Admin: 10/20/16 10:11 Dose: 40 mg Warfarin Sodium (Coumadin) 5 mg PO 1800 [facility] PRN Reason: Protocol - Labs Labs: 10/20/16 06:30 10/20/16 06:30 PT 38.8 Seconds (9.9-11.8) H* 10/20/16 06:30 INR 3.59 (0.93-1.08) H* 10/20/16 06:30 APTT 42.8 Seconds (23.7-30.8) H 10/19/16 11:00 - Constitutional Appears: Non-toxic, No Acute Distress - Head Exam Head Exam: ATRAUMATIC, NORMOCEPHALIC - Eye Exam Eye Exam: EOMI, PERRL Pupil Exam: PERRL. absent: Miosis, Mydriatic - ENT Exam ENT Exam: Mucous Membranes Moist, Normal Oropharynx - Neck Exam Neck Exam: Full ROM, Normal Inspection - Respiratory Exam Respiratory Exam: Clear to Ausculation Bilateral. absent: Rales, Rhonchi, Wheezes - Cardiovascular Exam Cardiovascular Exam: RRR, +S1, +S2. absent: Gallop, Rubs - GI/Abdominal Exam GI & Abdominal Exam: Soft, Tenderness, Normal Bowel Sounds. absent: Distended, Firm, Guarding, Rigid, Organomegaly, Rebound Additional comments: LLQ tenderness to palpation - Extremities Exam Extremities Exam: Normal Inspection. absent: Pedal Edema - Neurological Exam Neurological Exam: Alert, Awake - Psychiatric Exam Psychiatric exam: Normal Affect, Normal Mood - Skin Skin Exam: Dry, Intact, Normal Color, Warm Assessment and Plan - Assessment and Plan (Free Text) Assessment: 70 year old female with history of Hypertension, Atrial fibrillation on Coumadin , Hypothyroidism, and diverticulitis 01/2015 presenting with abdominal pain. Note of [address] A/P showing sigmoid diverticulitis and left adnexal 4.2cm mass enlarged compared to pervious studies. States colonoscopy in 2010 endorsed to be normal. Plan: >continue Cipro, Flagyl >ordered CT A/P PO contrast evaluate ovarian cystic mass in close proximity to diverticulitis >[employer]RIGATOR [employer] PIPE following-outpatient follow up >supportive care: IVFs, pain control >tolerated liquids, advance as tolerated >diverticulitis 01/2015 -endorses lost to follow up for colonoscopy surveillance due to loss of insurance >will benefit from colonoscopy with recurrent diverticulitis and unintentional weight loss in 6 to 8 weeks >further recommendations based on CT A/P PO contrast <Jayant Mcmahan MD - Last Filed: 10/20/16 17:56> Objective - Vital Signs/Intake and Output Vital Signs (last 24 hours): Temp Pulse Resp BP Pulse Ox 98.2 F 76 18 168/81 H 99 10/20/16 16:00 10/20/16 16:00 10/20/16 16:00 10/20/16 16:00 10/20/16 16:00 Intake and Output: 10/20/16 10/20/16 06:59 18:59 Intake Total 100 840 Balance 100 840 - Medications Medications: Current Medications Acetaminophen (Tylenol 325 Mg Supp) 325 mg RC Q6H PRN PRN Reason: Fever >100.4 F Hydrochlorothiazide (Hydrodiuril) 25 mg PO DAILY [facility] Sodium Chloride (Sodium Chloride 0.9%) 100 mls @ 75 mls/hr IV .Q1H20M [facility] Last Admin: 10/20/16 05:31 Dose: 75 mls/hr Ceftriaxone Sodium (Rocephin 1 Gram Ivpb) 1 gm in 100 mls @ 100 mls/hr IVPB DAILY [facility] PRN Reason: Protocol Last Admin: 10/20/16 10:11 Dose: 100 mls/hr Metronidazole (Flagyl) 500 mg in 100 mls @ 100 mls/hr IVPB Q8 [facility] PRN Reason: Protocol Last Admin: 10/20/16 13:25 Dose: 100 mls/hr Levothyroxine Sodium (Synthroid) 88 mcg PO ACB [facility] Last Admin: 10/20/16 08:19 Dose: 88 mcg Lisinopril (Zestril) 20 mg PO DAILY [facility] Morphine Sulfate (Morphine) 2 mg IVP Q6 PRN PRN Reason: Pain, severe (8-10) Last Admin: 10/20/16 10:52 Dose: 2 mg Morphine Sulfate (Morphine) 1 mg IVP Q6 PRN PRN Reason: Pain, moderate (4-7) Ondansetron HCl (Zofran Inj) 4 mg IVP Q4 PRN PRN Reason: Nausea/Vomiting Pantoprazole Sodium (Protonix Inj) 40 mg IVP DAILY [facility] Last Admin: 10/20/16 10:11 Dose: 40 mg Warfarin Sodium (Coumadin) 5 mg PO 1800 [facility] PRN Reason: Protocol - Labs Labs: 10/20/16 06:30 10/20/16 06:30 PT 38.8 Seconds (9.9-11.8) H* 10/20/16 06:30 INR 3.59 (0.93-1.08) H* 10/20/16 06:30 APTT 42.8 Seconds (23.7-30.8) H 10/19/16 11:00 Attending/Attestation - Attestation I have personally seen and examined this patient.: Yes I have fully participated in the care of the patient.: Yes I have reviewed all pertinent clinical information, including history, physical exam and plan: Yes Notes (Text): 10/20/16 17:49 Patient seen with GI fellow. This is a 70 year old female with history of Hypertension, Atrial fibrillation on Coumadin, Hypothyroidism, and diverticulitis 01/2015 presenting with abdominal pain with weight loss. Concerning is CT A/P showing sigmoid diverticulitis and left adnexal 4.2cm mass enlarged compared to pervious studies. Last colonoscopy in 2010 normal. Production Posting Clerk consult will be beneficial as ovarian cystic lesion and diverticulitis is same side and prudent to rule out malignancy. Continue antibiotics. Will get Ct with IV contrast.
[2016-10-20] MEDS ORDERED: Barium Sulfate Susp 2.1% w/v, 2.0% w/w 450 mL Bottle PO ONE (16:35)
[2016-10-21] MEDS: metroNIDAZOLE IV 500 mg/100 ml 500 MG/100 ML BAG IVPB SCH ×2 (06:16→13:43)
[2016-10-21] MEDS: Morphine 2 mg/ml ISec IVP PRN (06:29)
[2016-10-21 06:51] LABS: ADD MANUAL DIFF? NO
[2016-10-21 07:06] LABS: INR 2.71 (0.93-1.08)
[2016-10-21 07:10] LABS: BASO # 0.01 K/mm3 (0.0-2.0); BASO % 0.1 % (0.0-3.0); EOS % 0.3 % (1.5-5.0); GRAN # 7.85 (1.4-6.5); GRAN % 83.7 % (50.0-68.0); HEMATOCRIT 34.8 % (36.0-48.0); LYMPH # 0.8 (1.2-3.4); LYMPH % 8.7 % (22.0-35.0); MEAN CELL VOLUME 84.7 fL (80.0-105.0); MEAN PLATELET VOLUME 11.2 fl (7.0-11.0); MONO # 0.7 (0.1-0.6); MONO % 7.2 % (1.0-6.0); PLATELET COUNT 214 10^3/uL (120.0-450.0); RED CELL DISTRIBUTION WIDTH 14.3 % (11.5-14.5); WHITE BLOOD COUNT 9.4 10^3/ul (4.5-11.0)
[2016-10-21 07:11] LABS: ALKALINE PHOSPHATASE 73 U/L (38-133); ALT/SGPT 27 U/L (7-56); AST/SGOT 22 U/L (15-39); BILIRUBIN,TOTAL 0.7 mg/dL (0.2-1.3); BLOOD UREA NITROGEN 7 mg/dL (7-21); CALCIUM 8.6 mg/dL (8.4-10.5); CARBON DIOXIDE 30 mmol/L (21-33); CHLORIDE 100 mmol/L (98-107); GFR AFRICAN-AMERICAN > 60; GLUCOSE,RANDOM 91 mg/dL (70-110); SODIUM 136 mmol/L (132-148); TOTAL PROTEIN 6.9 g/dL (5.8-8.3)
--- NOTE | 2016-10-21 07:25 | CP.PCM.PN ---
<Khloe Hannah - Last Filed: 10/21/16 08:53> Subjective - Date & Time of Evaluation Date of Evaluation: 10/21/16 Time of Evaluation: 07:22 - Subjective Subjective: Gastroenterology Fellow/PGY4 Progress Note Patient notes moderate improvement in left lower abdomen pain. No bowel movement last three days. Tolerating diet. A 12-point review of systems negative except for as above. Objective - Vital Signs/Intake and Output Vital Signs (last 24 hours): Temp Pulse Resp BP Pulse Ox 98.2 F 76 18 168/81 H 99 10/20/16 16:00 10/20/16 16:00 10/20/16 16:00 10/20/16 16:00 10/20/16 16:00 Intake and Output: 10/21/16 10/21/16 06:59 18:59 Intake Total 480 Balance 480 - Medications Medications: Current Medications Acetaminophen (Tylenol 325 Mg Supp) 325 mg RC Q6H PRN PRN Reason: Fever >100.4 F Hydrochlorothiazide (Hydrodiuril) 25 mg PO DAILY [facility] Sodium Chloride (Sodium Chloride 0.9%) 100 mls @ 75 mls/hr IV .Q1H20M ANGELITA Last Admin: 10/20/16 05:31 Dose: 75 mls/hr Ceftriaxone Sodium (Rocephin 1 Gram Ivpb) 1 gm in 100 mls @ 100 mls/hr IVPB DAILY ANGELITA PRN Reason: Protocol Last Admin: 10/20/16 10:11 Dose: 100 mls/hr Metronidazole (Flagyl) 500 mg in 100 mls @ 100 mls/hr IVPB Q8 ANGELITA PRN Reason: Protocol Last Admin: 10/21/16 06:16 Dose: 100 mls/hr Levothyroxine Sodium (Synthroid) 88 mcg PO ACB ANGELITA Last Admin: 10/20/16 08:19 Dose: 88 mcg Lisinopril (Zestril) 20 mg PO DAILY [facility] Morphine Sulfate (Morphine) 2 mg IVP Q6 PRN PRN Reason: Pain, severe (8-10) Last Admin: 10/21/16 06:29 Dose: 2 mg Morphine Sulfate (Morphine) 1 mg IVP Q6 PRN PRN Reason: Pain, moderate (4-7) Ondansetron HCl (Zofran Inj) 4 mg IVP Q4 PRN PRN Reason: Nausea/Vomiting Pantoprazole Sodium (Protonix Inj) 40 mg IVP DAILY ANGELITA Last Admin: 10/20/16 10:11 Dose: 40 mg Warfarin Sodium (Coumadin) 5 mg PO 1800 ANGELITA PRN Reason: Protocol - Labs Labs: 10/21/16 06:00 10/20/16 06:30 PT 38.8 Seconds (9.9-11.8) H* 10/20/16 06:30 INR 3.59 (0.93-1.08) H* 10/20/16 06:30 APTT 42.8 Seconds (23.7-30.8) H 10/19/16 11:00 - Constitutional Appears: Non-toxic, No Acute Distress - Head Exam Head Exam: ATRAUMATIC, NORMOCEPHALIC - Eye Exam Eye Exam: EOMI, PERRL Pupil Exam: PERRL. absent: Miosis, Mydriatic - ENT Exam ENT Exam: Mucous Membranes Moist, Normal Oropharynx - Neck Exam Neck Exam: Full ROM, Normal Inspection - Respiratory Exam Respiratory Exam: Clear to Ausculation Bilateral. absent: Rales, Rhonchi, Wheezes - Cardiovascular Exam Cardiovascular Exam: RRR, +S1, +S2. absent: Gallop, Rubs - GI/Abdominal Exam GI & Abdominal Exam: Soft, Tenderness, Normal Bowel Sounds. absent: Distended, Firm, Guarding, Rigid, Organomegaly, Rebound Additional comments: minimal LLQ tenderness - Extremities Exam Extremities Exam: Full ROM. absent: Pedal Edema - Neurological Exam Neurological Exam: Alert, Awake - Psychiatric Exam Psychiatric exam: Normal Affect, Normal Mood - Skin Skin Exam: Dry, Intact, Normal Color, Warm Assessment and Plan - Assessment and Plan (Free Text) Assessment: 70 year old female with history of Hypertension, Atrial fibrillation on Coumadin , Hypothyroidism, and diverticulitis 01/2015 presenting with abdominal pain. Note of [address] A/P showing sigmoid diverticulitis and left adnexal 4.2cm mass enlarged compared to pervious studies. States colonoscopy in 2010 endorsed to be normal. Plan: >continue Cipro, Flagyl >pending CT A/P -evaluate ovarian cystic mass in close proximity to diverticulitis >[employer] following-outpatient management >supportive care: IVFs, pain control >tolerating regular diet >Miralax daily >will benefit from colonoscopy with recurrent diverticulitis and unintentional weight loss in 6 to 8 weeks <Antwan Horner - Last Filed: 10/21/16 10:42> Objective - Vital Signs/Intake and Output Vital Signs (last 24 hours): Temp Pulse Resp BP Pulse Ox 98.6 F 69 20 146/87 96 10/21/16 07:27 10/21/16 10:13 10/21/16 07:27 10/21/16 10:13 10/21/16 07:27 Intake and Output: 10/21/16 10/21/16 06:59 18:59 Intake Total 1380 Balance 1380 - Medications Medications: Current Medications Acetaminophen (Tylenol 325 Mg Supp) 325 mg RC Q6H PRN PRN Reason: Fever >100.4 F Hydrochlorothiazide (Hydrodiuril) 25 mg PO DAILY [facility] Last Admin: 10/21/16 10:15 Dose: 25 mg Sodium Chloride (Sodium Chloride 0.9%) 100 mls @ 75 mls/hr IV .Q1H20M [facility] Last Admin: 10/20/16 05:31 Dose: 75 mls/hr Ceftriaxone Sodium (Rocephin 1 Gram Ivpb) 1 gm in 100 mls @ 100 mls/hr IVPB DAILY ANGELITA PRN Reason: Protocol Last Admin: 10/21/16 10:12 Dose: 100 mls/hr Metronidazole (Flagyl) 500 mg in 100 mls @ 100 mls/hr IVPB Q8 ANGELITA PRN Reason: Protocol Last Admin: 10/21/16 06:16 Dose: 100 mls/hr Levothyroxine Sodium (Synthroid) 88 mcg PO ACB [facility] Last Admin: 10/21/16 07:47 Dose: 88 mcg Lisinopril (Zestril) 20 mg PO DAILY [facility] Last Admin: 10/21/16 10:13 Dose: 20 mg Morphine Sulfate (Morphine) 2 mg IVP Q6 PRN PRN Reason: Pain, severe (8-10) Last Admin: 10/21/16 06:29 Dose: 2 mg Morphine Sulfate (Morphine) 1 mg IVP Q6 PRN PRN Reason: Pain, moderate (4-7) Ondansetron HCl (Zofran Inj) 4 mg IVP Q4 PRN PRN Reason: Nausea/Vomiting Pantoprazole Sodium (Protonix Inj) 40 mg IVP DAILY [facility] Last Admin: 10/21/16 10:12 Dose: 40 mg Polyethylene Glycol (Miralax) 17 gm PO DAILY [facility] Last Admin: 10/21/16 10:17 Dose: 17 gm Warfarin Sodium (Coumadin) 5 mg PO 1800 ANGELITA PRN Reason: Protocol - Labs Labs: 10/21/16 06:00 10/21/16 06:00 PT 29.3 Seconds (9.9-11.8) H 10/21/16 06:00 INR 2.71 (0.93-1.08) H 10/21/16 06:00 APTT 42.8 Seconds (23.7-30.8) H 10/19/16 11:00 Attending/Attestation - Attestation I have personally seen and examined this patient.: Yes I have fully participated in the care of the patient.: Yes I have reviewed all pertinent clinical information, including history, physical exam and plan: Yes Notes (Text): Patient seen and examined with GI fellow. Agree with her note as documented above with the following additions/exceptions. This is a 70 year old female with history HTN, afib on anticoagulation, prior diverticulitis who is admitted with abdominal pain. She is found to have large adnexal mass and uncomplicated sigmoid diverticulitis. Her abdominal pain is improved, no nausea or vomiting. She is tolerating diet without incident. No fever or leukocytosis. Continue supportive management with antibiotic therapy, diet as tolerated, pain control as needed. She will need [employer] follow up for adnexal mass and colonoscopy in 6-8 weeks after resolution of acute diverticulitis. Please call with any questions or concerns. 10/21/16 10:39
[2016-10-21 07:28] VITALS: RESP 20
[2016-10-21] MEDS: Levothyroxine 88 MCG TAB PO SCH (07:47)
[2016-10-21] MEDS ORDERED: POLYETHYLENE GLYCOL 3350 17 GM/Dose PACKET PO SCH (10:00)
[2016-10-21] MEDS: cefTRIAXone 1 gm 1 GM/100 ML BAG IVPB SCH (10:12)
--- NOTE | 2016-10-21 10:16 | CT ---
PROCEDURE: CT Abdomen and Pelvis without intravenous contrast HISTORY: evaluate cystic mass adjacent to diverticulitis COMPARISON: 10/19/2016 TECHNIQUE: Without contrast.. Contrast Dose: 0 Radiation dose: Total exam DLP = 737.62 mGy-cm. This CT exam was performed using one or more of the following dose reduction techniques: Automated exposure control, adjustment of the mA and/or kV according to patient size, and/or use of iterative reconstruction technique. FINDINGS: LOWER THORAX: Mild cardiomegaly. LIVER: Unremarkable. No gross lesion or ductal dilatation. GALLBLADDER AND BILE DUCTS: Unremarkable. PANCREAS: Unremarkable. No gross lesion or ductal dilatation. SPLEEN: Unremarkable. ADRENALS: Mild bilateral adrenal hypertrophy. No adrenal mass. KIDNEYS AND URETERS: Left lower pole renal cyst, 3.8 cm. Otherwise unremarkable. VASCULATURE: Unremarkable. No aortic aneurysm. BOWEL: Acute sigmoid diverticulitis. Mural thickening of sigmoid colon with very sigmoidal inflammatory change, most pronounced about the distal sigmoid colon No evidence of abscess. No evidence of free air. Extensive sigmoid diverticular disease. Scattered colonic diverticulae elsewhere. No other abnormal bowel loops. No bowel obstruction. APPENDIX: Unremarkable. Normal appendix. PERITONEUM: Unremarkable. No free fluid. No free air. LYMPH NODES: Unremarkable. No enlarged lymph nodes. BLADDER: Unremarkable. REPRODUCTIVE: Normal uterus. Left adnexal cystic mass, approximately 4 cm diameter. Unchanged. BONES: No acute fracture. OTHER FINDINGS: None. IMPRESSION: Acute sigmoid diverticulitis without evidence of abscess or free air. 4 cm left adnexal cystic mass unchanged from prior examination. Additional minor findings as above.
--- NOTE | 2016-10-21 15:54 | CP.PCM.DIS ---
<Merle Mishra - Last Filed: 10/21/16 16:25> Provider - Provider Date of Admission: 10/19/16 12:49 Attending physician: Yamila Waite MD Primary care physician: Jordi Segal MD Consults: LESLEY Anderson Time Spent in preparation of Discharge (in minutes): 35 Hospital Course - Lab Results Lab Results: Most Recent Lab Values WBC 9.4 10^3/ul (4.5-11.0) 10/21/16 06:00 RBC 4.11 10^6/uL (3.5-6.1) 10/21/16 06:00 Hgb 11.5 gm/dL (12.0-16.0) L 10/21/16 06:00 Hct 34.8 % (36.0-48.0) L 10/21/16 06:00 MCV 84.7 fL (80.0-105.0) 10/21/16 06:00 MCH 28.0 pg (25.0-35.0) 10/21/16 06:00 MCHC 33.0 g/dl (31.0-37.0) 10/21/16 06:00 RDW 14.3 % (11.5-14.5) 10/21/16 06:00 Plt Count 214 10^3/uL (120.0-450.0) 10/21/16 06:00 MPV 11.2 fl (7.0-11.0) H 10/21/16 06:00 Gran % 83.7 % (50.0-68.0) H 10/21/16 06:00 Lymph % (Auto) 8.7 % (22.0-35.0) L 10/21/16 06:00 Swain % (Auto) 7.2 % (1.0-6.0) H 10/21/16 06:00 Eos % (Auto) 0.3 % (1.5-5.0) L 10/21/16 06:00 Baso % (Auto) 0.1 % (0.0-3.0) 10/21/16 06:00 Gran # 7.85 (1.4-6.5) H 10/21/16 06:00 Lymph # 0.8 (1.2-3.4) L 10/21/16 06:00 Swain # 0.7 (0.1-0.6) H 10/21/16 06:00 Eos # 0.0 (0.0-0.7) 10/21/16 06:00 Baso # 0.01 K/mm3 (0.0-2.0) 10/21/16 06:00 PT 29.3 Seconds (9.9-11.8) H 10/21/16 06:00 INR 2.71 (0.93-1.08) H 10/21/16 06:00 APTT 42.8 Seconds (23.7-30.8) H 10/19/16 11:00 Sodium 136 mmol/L (132-148) 10/21/16 06:00 Potassium 4.0 mmol/L (3.6-5.0) 10/21/16 06:00 Chloride 100 mmol/L (98-107) 10/21/16 06:00 Carbon Dioxide 30 mmol/L (21-33) 10/21/16 06:00 Anion Gap 10 (10-20) 10/21/16 06:00 BUN 7 mg/dL (7-21) 10/21/16 06:00 Creatinine 0.6 mg/dL (0.5-1.4) 10/21/16 06:00 Est GFR ( Amer) > 60 10/21/16 06:00 Est GFR (Non-Af Amer) > 60 10/21/16 06:00 Random Glucose 91 mg/dL (70-110) 10/21/16 06:00 Calcium 8.6 mg/dL (8.4-10.5) 10/21/16 06:00 Total Bilirubin 0.7 mg/dL (0.2-1.3) 10/21/16 06:00 AST 22 U/L (15-39) 10/21/16 06:00 ALT 27 U/L (7-56) 10/21/16 06:00 Alkaline Phosphatase 73 U/L (38-133) 10/21/16 06:00 Lactate Dehydrogenase 374 U/L (333-699) 10/19/16 11:00 Total Creatine Kinase 64 U/L (35-230) 10/19/16 11:00 Troponin I < 0.01 ng/mL 10/19/16 11:00 Total Protein 6.9 g/dL (5.8-8.3) 10/21/16 06:00 Albumin 3.4 g/dL (3.0-4.8) 10/21/16 06:00 Globulin 3.5 gm/dL 10/21/16 06:00 Albumin/Globulin Ratio 1.0 (1.1-1.8) L 10/21/16 06:00 Amylase 54 U/L (35-125) 10/19/16 11:00 Lipase 46 U/L (23-300) 10/19/16 11:00 TSH 3rd Generation 2.85 mIU/mL (0.46-4.68) 10/20/16 06:30 Urine Color Yellow (YELLOW) 10/19/16 13:00 Urine Appearance Clear (CLEAR) 10/19/16 13:00 Urine pH 7.0 (4.7-8.0) 10/19/16 13:00 Ur Specific Saline <= 1.005 (1.005-1.035) 10/19/16 13:00 Urine Protein Negative mg/dL (<30 mg/dL) 10/19/16 13:00 Urine Glucose (UA) Negative mg/dL (NEGATIVE) 10/19/16 13:00 Urine Ketones 15 mg/dL (NEGATIVE) H 10/19/16 13:00 Urine Blood Trace-intact (NEGATIVE) H 10/19/16 13:00 Urine Nitrate Negative (NEGATIVE) 10/19/16 13:00 Urine Bilirubin Negative (NEGATIVE) 10/19/16 13:00 Urine Urobilinogen 0.2 E.U./dL (<1 E.U./dL) 10/19/16 13:00 Ur Leukocyte Esterase Negative Kiera/uL (NEGATIVE) 10/19/16 13:00 Urine RBC 2 - 5 /hpf (0-2) 10/19/16 13:00 Urine WBC 2 - 5 /hpf (0-6) 10/19/16 13:00 Ur Epithelial Cells 3 - 4 /hpf (0-5) 10/19/16 13:00 Urine Bacteria Mod (NEG) 10/19/16 13:00 - Hospital Course Hospital Course: 70 yo F w/PMHx of chronic A.fib on coumadin, hypothyroidism, HTN, diverticulitis , initially presented with four days of L sided abdominal pain and 40 lbs of unintentional weight loss in past few months. Previous admission on 01/2015 at [facility] for acute diverticulitis. Abd CT w/ acute diverticulitis and L adnexal mass. Inpatient admission for diverticulitis on med/surg: On the floors: GI consult, help appreciated, started pt on CLD trial and advanced to heart healthy diet as tolerated. GI made rec of out patient colonoscopy for diverticulitis within 3 weeks from d/ c, and ADAT. Ceftriaxone, flagyl IV on floor for diverticulitis. Protonix, zofran and morphine for pain given. Home coumadin was held for inr 3.59 initially and daily INR checks given. HTN treated with home meds of lisinopril and HTCZ. hypothyroidism treated with home medication of levothyroxine. Attending spoke to dr. harding, engineer process with reccommendation of outpatient f/u for L adnexal cystic mass of around [address] with PO contrast for further evaluation of adnexal mass, but no new findings made, so Pt d/c home in good condition with new medication of augmentin 875 mg PO BID for 8 days, and instructions for f/u colonscopy and engineer process f/u and f/u INR in four days Discharge Exam - Additional Findings Additional findings: - Constitutional Appears: Non-toxic, No Acute Distress - Head Exam Head Exam: ATRAUMATIC, NORMOCEPHALIC - Eye Exam Eye Exam: EOMI, Normal appearance - Respiratory Exam Respiratory Exam: Clear to Ausculation Bilateral, NORMAL BREATHING PATTERN - Cardiovascular Exam Cardiovascular Exam: +S1, +S2. absent: Tachycardia - GI/Abdominal Exam GI & Abdominal Exam: Soft. absent: Tenderness - Exam External exam: absent: Ecchymosis, Erythema - Neurological Exam Neurological Exam: Alert, Awake - Skin Skin Exam: Intact, Normal Color Discharge Plan - Discharge Medications Prescriptions: Amoxicillin/Clavulanate [Augmentin 875 MG-125 MG] 1 tab PO BID #16 tab - Follow Up Plan Condition: GOOD Disposition: HOME/ ROUTINE Instructions: Warfarin (By mouth), Diverticulitis (DC), Pneumococcal Vaccine for Adults (DC), Vitamin K in Foods (DC), Diverticulitis Diet (DC) Additional Instructions: You are discharged home. Please follow up with your primary physician Dr. Segal or your PMD of choice within four days for: (1) referral for out patient gynecology at your earliest convenience for L mass (2) INR check (3) referral for outpatient colonoscopy in 3 weeks. Please continue your home medications. Please take the following new medications : Augmentin 875 mg twice daily by mouth for 8 days. Please return to the emergency department for worsening of symptoms. Referrals: [facility] at [facility] [Outside] Jordi Segal MD [Primary Care Provider] - <Gigi CUEVA,[facility] - Last Filed: 10/21/16 17:44> Provider - Provider Date of Admission: 10/19/16 12:49 Attending physician: Yamila Waite MD Primary care physician: Jordi Segal MD Hospital Course - Lab Results Lab Results: Most Recent Lab Values WBC 9.4 10^3/ul (4.5-11.0) 10/21/16 06:00 RBC 4.11 10^6/uL (3.5-6.1) 10/21/16 06:00 Hgb 11.5 gm/dL (12.0-16.0) L 10/21/16 06:00 Hct 34.8 % (36.0-48.0) L 10/21/16 06:00 MCV 84.7 fL (80.0-105.0) 10/21/16 06:00 MCH 28.0 pg (25.0-35.0) 10/21/16 06:00 MCHC 33.0 g/dl (31.0-37.0) 10/21/16 06:00 RDW 14.3 % (11.5-14.5) 10/21/16 06:00 Plt Count 214 10^3/uL (120.0-450.0) 10/21/16 06:00 MPV 11.2 fl (7.0-11.0) H 10/21/16 06:00 Gran % 83.7 % (50.0-68.0) H 10/21/16 06:00 Lymph % (Auto) 8.7 % (22.0-35.0) L 10/21/16 06:00 Swain % (Auto) 7.2 % (1.0-6.0) H 10/21/16 06:00 Eos % (Auto) 0.3 % (1.5-5.0) L 10/21/16 06:00 Baso % (Auto) 0.1 % (0.0-3.0) 10/21/16 06:00 Gran # 7.85 (1.4-6.5) H 10/21/16 06:00 Lymph # 0.8 (1.2-3.4) L 10/21/16 06:00 Swain # 0.7 (0.1-0.6) H 10/21/16 06:00 Eos # 0.0 (0.0-0.7) 10/21/16 06:00 Baso # 0.01 K/mm3 (0.0-2.0) 10/21/16 06:00 PT 29.3 Seconds (9.9-11.8) H 10/21/16 06:00 INR 2.71 (0.93-1.08) H 10/21/16 06:00 APTT 42.8 Seconds (23.7-30.8) H 10/19/16 11:00 Sodium 136 mmol/L (132-148) 10/21/16 06:00 Potassium 4.0 mmol/L (3.6-5.0) 10/21/16 06:00 Chloride 100 mmol/L (98-107) 10/21/16 06:00 Carbon Dioxide 30 mmol/L (21-33) 10/21/16 06:00 Anion Gap 10 (10-20) 10/21/16 06:00 BUN 7 mg/dL (7-21) 10/21/16 06:00 Creatinine 0.6 mg/dL (0.5-1.4) 10/21/16 06:00 Est GFR ( Amer) > 60 10/21/16 06:00 Est GFR (Non-Af Amer) > 60 10/21/16 06:00 Random Glucose 91 mg/dL (70-110) 10/21/16 06:00 Calcium 8.6 mg/dL (8.4-10.5) 10/21/16 06:00 Total Bilirubin 0.7 mg/dL (0.2-1.3) 10/21/16 06:00 AST 22 U/L (15-39) 10/21/16 06:00 ALT 27 U/L (7-56) 10/21/16 06:00 Alkaline Phosphatase 73 U/L (38-133) 10/21/16 06:00 Lactate Dehydrogenase 374 U/L (333-699) 10/19/16 11:00 Total Creatine Kinase 64 U/L (35-230) 10/19/16 11:00 Troponin I < 0.01 ng/mL 10/19/16 11:00 Total Protein 6.9 g/dL (5.8-8.3) 10/21/16 06:00 Albumin 3.4 g/dL (3.0-4.8) 10/21/16 06:00 Globulin 3.5 gm/dL 10/21/16 06:00 Albumin/Globulin Ratio 1.0 (1.1-1.8) L 10/21/16 06:00 Amylase 54 U/L (35-125) 10/19/16 11:00 Lipase 46 U/L (23-300) 10/19/16 11:00 TSH 3rd Generation 2.85 mIU/mL (0.46-4.68) 10/20/16 06:30 Urine Color Yellow (YELLOW) 10/19/16 13:00 Urine Appearance Clear (CLEAR) 10/19/16 13:00 Urine pH 7.0 (4.7-8.0) 10/19/16 13:00 Ur Specific Saline <= 1.005 (1.005-1.035) 10/19/16 13:00 Urine Protein Negative mg/dL (<30 mg/dL) 10/19/16 13:00 Urine Glucose (UA) Negative mg/dL (NEGATIVE) 10/19/16 13:00 Urine Ketones 15 mg/dL (NEGATIVE) H 10/19/16 13:00 Urine Blood Trace-intact (NEGATIVE) H 10/19/16 13:00 Urine Nitrate Negative (NEGATIVE) 10/19/16 13:00 Urine Bilirubin Negative (NEGATIVE) 10/19/16 13:00 Urine Urobilinogen 0.2 E.U./dL (<1 E.U./dL) 10/19/16 13:00 Ur Leukocyte Esterase Negative Kiera/uL (NEGATIVE) 10/19/16 13:00 Urine RBC 2 - 5 /hpf (0-2) 10/19/16 13:00 Urine WBC 2 - 5 /hpf (0-6) 10/19/16 13:00 Ur Epithelial Cells 3 - 4 /hpf (0-5) 10/19/16 13:00 Urine Bacteria Mod (NEG) 10/19/16 13:00 Attending/Attestation - Attestation I have personally seen and examined this patient.: Yes I have fully participated in the care of the patient.: Yes I have reviewed all pertinent clinical information, including history, physical exam and plan: Yes Notes (Text): Patient was seen and examined with medical parasitologist .Agreed with resident assessment and plan. 70 yo F w/PMHx of chronic A.fib on coumadin, hypothyroidism, HTN,Diverticulosis was admitted with sigmoid diverticulitis,abdominal pain has improved, patient is tolerating diet with out any problem.As she is on warfarin, will discharge home on oral Augmentin, will need out patient Colonoscopy in 4-6 weeks. Patient INR has come down to 2.7, was elevated yesterday as she was on Flagyl, will have repeat INR with PMD in 3 days. Patient is also found to have adenxal mass, concern for malignancy.Patient is already aware of this, she and her has been advised to follow up with OBGYN as early as possible.As per Patient and , thery are aware of this and PMD is also aware of this. Management plan was discussed in detail with patient Education was provided.
[2016-10-21 16:13] VITALS: PULSE 63
[2016-10-21 16:43] VITALS: TEMP 98.2; O2SAT 100
[2016-10-21 17:15] VITALS: BP 122/62
== END 2016-10-21 18:00 | disposition home or self-care (01) | DRG 183 ==
LOC: ED 09:54 → ERH 12:49 → 5RNO 15:23
PROVIDERS: ADMIT Internal Medicine; ATTEND Internal Medicine
DX: K57.32 Diverticulitis of large intestine without perforation or abscess without bleeding (principal); I48.2 Chronic atrial fibrillation; I10 Essential (primary) hypertension; E03.9 Hypothyroidism, unspecified; K59.00 Constipation, unspecified; N83.209 Unspecified ovarian cyst, unspecified side; Z79.01 Long term (current) use of anticoagulants; R35.0 Frequency of micturition; N81.4 Uterovaginal prolapse, unspecified; R63.4 Abnormal weight loss; R26.81 Unsteadiness on feet; R19.00 Intra-abdominal and pelvic swelling, mass and lump, unspecified site

== ENCOUNTER 2017-01-24 06:08 | Day surgery (SDC) | payer OTHER ==
[2016-12-29 09:59] VITALS: BMI 23.0
--- NOTE | 2017-01-22 04:58 | HP ---
REASON FOR ADMISSION: Left heart cath, possible angioplasty because of abnormal stress test. BRIEF CLINICAL HISTORY: This is a 71-year-old female with a past medical history significant for atrial fibrillation, hypothyroidism, on Coumadin, hypertension, diverticular colonic disease, who is having chest pain, abnormal stress test, so the patient is scheduled for elective cardiac cath, possible angioplasty. PAST MEDICAL HISTORY: Significant for atrial fibrillation, on Coumadin, hypothyroidism, hypertension, diverticular chronic disease, and uterine prolapse. Recent cardiac workup as follows: The patient had echocardiogram on 12/29/2016 that showed ejection fraction 55-60%, trace aortic regurgitation, moderate mitral regurgitation, moderate tricuspid regurgitation, RV systolic pressure 57, dilated IVC. The patient had a stress test dated 12/29/2016 that showed equivocal study, reversible anterior defect, suspicious for ischemia. CURRENT MEDICATIONS: The patient is taking Coumadin 5 mg, multivitamin one tablet, lisinopril/hydrochlorothiazide one tablet, levothyroxine 88 mcg, last Coumadin dose on Tuesday. ALLERGIES: NO KNOWN DRUG ALLERGIES. REVIEW OF SYSTEMS: As per HPI. PHYSICAL EXAMINATION: VITAL SIGNS: Temperature afebrile, heart rate 60, blood pressure 132/66, height of the patient is 5 feet 3 inches and weight of the patient is 134 pounds. Body mass index 24 kg/m2. HEENT: PERRLA intact. NECK: Supple. No carotid bruit. No thyromegaly. CHEST: Clear to auscultation. HEART: S1 and S2 regular. ABDOMEN: Soft. EXTREMITIES: Clubbing and cyanosis negative. LABORATORY DATA: Blood workup last on 12/01/2016, WBC is 5.7, hemoglobin 14, hematocrit 41.9, platelet count 173. INR as of 01/17/2017 was 2.62. Chemistry shows on 12/01/2016; sodium 130, potassium 3.7, chloride 99, carbon dioxide of 28, anion gap of , BUN 18, creatinine 12. IMPRESSION: Abnormal stress test, atrial fibrillation, hypertension, hyperlipidemia, history of diverticular colonic disease, abnormal stress test dated 01/02/2017 suspicious for anterior ischemia. Last echo on 12/29/2016 shows [id number] pulmonary hypertension, [id number] mitral regurgitation and aortic regurgitation, preserved LV function, ejection fraction 55-60% by echo and by stress test 67%. PLAN: A 71-year-old female with a past medical history of chronic atrial fibrillation, hypertension, abnormal stress test, mitral and tricuspid regurgitation is scheduled for cardiac catheterization. We will follow the PT/INR, last Coumadin was on Tuesday. If INR is less than 1.5, we will proceed for cardiac catheterization. We will load the Plavix and aspirin. Further recommendation after the cardiac catheterization. Thank you Dr. Castanon as well as providing me the opportunity in taking care of Pamela Alvarez. We will follow with you. Nena Borjas MD
[2017-01-24] MEDS ORDERED: Lidocaine 2% Inj (20ml) ONE (06:34)
[2017-01-24] MEDS ORDERED: Phenylephrine 10 mg/ml Inj ONE (06:35)
[2017-01-24] MEDS ORDERED: Nitroglycerin 50mg in D5W 50 MG/250 ML BOTTLE IV ONE (06:36)
[2017-01-24] MEDS ORDERED: Iodixanol 320 MG/ML 100 ML BOTTLE IV ONE (06:36)
[2017-01-24] MEDS ORDERED: Iodixanol 320 MG/ML 200 ML BOTTLE IV ONE (06:36)
[2017-01-24] MEDS ORDERED: Iohexol 350mgl/ml 50 ML ONE (06:36)
[2017-01-24 06:48] LABS: ADD MANUAL DIFF? NO
[2017-01-24] MEDS ORDERED: Midazolam 2 MG/2 ML VIAL ONE (06:48)
[2017-01-24 07:06] LABS: BASO # 0.01 K/mm3 (0.0-2.0); BASO % 0.2 % (0.0-3.0); BLOOD UREA NITROGEN 20 mg/dL (7-21); CALCIUM 9.9 mg/dL (8.4-10.5); CARBON DIOXIDE 31 mmol/L (21-33); CHLORIDE 100 mmol/L (98-107); CHOLESTEROL 183 mg/dL (130-200); EOS % 0.7 % (1.5-5.0); GFR AFRICAN-AMERICAN > 60; GLUCOSE,RANDOM 94 mg/dL (70-110); GRAN # 3.96 (1.4-6.5); GRAN % 72.1 % (50.0-68.0); HEMATOCRIT 40.1 % (36.0-48.0); INR 1.06 (0.93-1.08); LYMPH # 1.1 (1.2-3.4); LYMPH % 20.8 % (22.0-35.0); MEAN CELL VOLUME 88.1 fL (80.0-105.0); MEAN CORPUSCULAR HEMOGLOBIN 28.8 pg (25.0-35.0); MEAN CORPUSCULAR HGB CONC 32.7 g/dl (31.0-37.0); MEAN PLATELET VOLUME 12.1 fl (7.0-11.0); MONO # 0.3 (0.1-0.6); MONO % 6.2 % (1.0-6.0); PARTIAL THROMBOPLASTIN TIME 25.9 Seconds (23.7-30.8); PLATELET COUNT 156 10^3/uL (120.0-450.0); SODIUM 140 mmol/L (132-148); WHITE BLOOD COUNT 5.5 10^3/ul (4.5-11.0)
[2017-01-24] MEDS ORDERED: Bacitracin 500 Units/gm Oint Foilpak UD TOP ONE (08:25)
[2017-01-24] MEDS ORDERED: Sodium Chloride 0.9% 1,000 ML IV SCH (08:30)
[2017-01-24 09:21] VITALS: TEMP 98
[2017-01-24 10:03] VITALS: RESP 18
[2017-01-24] MEDS ORDERED: Bacitracin 500 Units/gm Oint Foilpak UD ONE (10:57)
[2017-01-24 12:00] VITALS: O2SAT 98
[2017-01-24 12:02] VITALS: BP 148/73; PULSE 67
--- NOTE | 2017-01-24 14:25 | CARD ---
APPROVED REPORT Procedure(s) performed: Left Heart Catheterization HISTORY The patient is a 71 year-old female with a history of : most recent EF: 67%. (EF Method: RADIONUCLIDE), hypertension , Hx of A fib. on coumadin, was C/o chest pain and had abnormal stress test Anterolateral Ischemia.. INDICATION The indication(s) include : positive stress test, chest pain, atrial fibrillation, dyspnea. CASE TECHNIQUE The patient was brought electively to the Cardiac Catheterization Laboratory in a fasting state and was prepped and draped in a sterile manner. The left wrist was infiltrated with 2% Lidocaine subcutaneous anesthesia. A 6 Fr Glidesheath (Radial) sheath was inserted into the left radial artery without difficulty. Coronary angiography was performed using coronary diagnostic catheters. The left coronary system was accessed and visualized with a Diagnostic , catheter. The right coronary system was accessed and visualized with a Diagnostic , catheter. The left ventricle was accessed and visualized with a 5 Fr Pigtail 145 (Angled) catheter. Left ventricular/Aortic Valve gradient assessed on pullback. Left ventriculogram was performed in JORGENSEN projection. Closure device was deployed with a Fr TR Band (Regular) without any complications. The patient tolerated the procedure well and there were no complications associated with the procedure. Vessel Analysis The patient's coronary anatomy is right dominant. The left main coronary artery is a medium size vessel without significant stenosis. The left main bifurcates to the left anterior descending and circumflex. The left anterior descending artery is a large size vessel without significant stenosis. The first diagonal branch is a small size vessel without significant stenosis. The second diagonal branch is a medium size vessel with diffuse calcification noted throughout this vessel and without significant stenosis. There is a 70% stenosis in the ostial segment. small caibre Vessel The third diagonal branch is a small size vessel . The circumflex artery is a medium size vessel with diffuse calcification noted throughout this vessel and without significant stenosis. The first obtuse marginal branch is a medium size vessel with diffuse calcification noted throughout this vessel. The right coronary artery is a medium size vessel with diffuse calcification noted throughout this vessel and without significant stenosis. The right posterior descending artery is a medium size vessel with diffuse calcification noted throughout this vessel and without significant stenosis. Left Ventricle The left ventricle is normal in size with normal contractility. There was no cardiomyopathy. The left ventricular ejection fraction is estimated to be 65%. The left ventricular end diastolic pressure is 14 mmHg. There was no gradient across the aortic valve upon pullback. Conclusion Non obst. CAD. limited ti Ostial D2 70%, small calibre vessel preserved LV fx. EF-65, EDP-14 mmof Hg. Recommendations Aggressive Medical TherapyCardiac Risk Reduction Program Resume Coumadin for A fib, PT/INR to be F/u with Dr Segal on . CC:Drs. Segal/ Lg.
== END 2017-01-24 12:39 | disposition home or self-care (01) ==
LOC: CATH 06:08
PROVIDERS: ATTEND Internal Medicine Cardiovascular Disease
DX: I25.10 Atherosclerotic heart disease of native coronary artery without angina pectoris (principal); I48.2 Chronic atrial fibrillation; Z79.01 Long term (current) use of anticoagulants; I10 Essential (primary) hypertension; E78.5 Hyperlipidemia, unspecified; I27.2 Other secondary pulmonary hypertension; E03.9 Hypothyroidism, unspecified; I08.0 Rheumatic disorders of both mitral and aortic valves
CPT/HCPCS: 36415; 80048; 80061; 85025; 85610; 85730; 86850; 86900; 93458; 99152; C1769; C1887; J1644 ×2; J2250; J3010; J7040 ×2

== ENCOUNTER 2017-05-31 07:55 | Day surgery (SDC) | payer OTHER ==
[2017-05-23 10:53] VITALS: BMI 23.8
[2017-05-31 08:47] LABS: INR 1.19 (0.93-1.08)
[2017-05-31] MEDS ORDERED: Sodium Chloride 0.9% 1,000 ML IV SCH (09:15)
[2017-05-31] MEDS ORDERED: Propofol 10 mg/ml Inj (20 ML) ONE (09:20)
[2017-05-31] MEDS ORDERED: Lidocaine 1% Inj (20ml) ONE (10:15)
[2017-05-31 10:36] VITALS: PULSE 63
[2017-05-31 12:12] VITALS: BP 121/68; RESP 16; TEMP 97.5; O2SAT 99
== END 2017-05-31 12:15 | disposition home or self-care (01) ==
LOC: ENDO 07:55
PROVIDERS: ATTEND Internal Medicine Gastroenterology
DX: K57.30 Diverticulosis of large intestine without perforation or abscess without bleeding (principal); K64.8 Other hemorrhoids; K29.50 Unspecified chronic gastritis without bleeding; R63.4 Abnormal weight loss; R63.0 Anorexia; I48.91 Unspecified atrial fibrillation
CPT/HCPCS: 36415; 43239; 45378; 85610; 88305; 88342; J2704; J3010; J7040 ×2

== ENCOUNTER 2017-06-02 06:59 | Observation (INO) | payer MEDICARE, OTHER ==
--- NOTE | 2017-06-02 07:39 | ED PDOC ---
Arrival/HPI - General Chief Complaint: Weakness/Neurological Deficit Time Seen by Provider: 06/02/17 07:13 Historian: Patient, Family - History of Present Illness Narrative History of Present Illness (Text): 06/02/17 07:30 A 71 year old female, whose past medical history includes hypertension on Coumadin, known history of A-fib, and multi level disc degeneration, presents to the emergency department for right hip and leg pain, which began this morning. The patient states she woke up this morning with right hip pain that travelled down to her right leg. She notes she has had similar symptoms back in March and her MRI showed she has multilevel disk degeneration. The patient denies any known traumas, fevers, chest pain, abdominal pain, or any other complaints at this time. Time/Duration: 1-3 hours Symptom Onset: Sudden Symptom Course: Unchanged Activities at Onset: Rest Context: Home Past Medical History - Provider Review Nursing Documentation Reviewed: Yes - Infectious Disease Hx of Infectious Diseases: None - Cardiac Hx Cardiac Disorders: No - Pulmonary Hx Respiratory Disorders: No - Neurological Hx Neurological Disorder: No - HEENT Hx HEENT Disorder: No (WEARS RX GLASSES) - Renal Hx Renal Disorder: No - Endocrine/Metabolic Hx Endocrine Disorders: Yes Hx Hypothyroidism: Yes - Hematological/Oncological Hx Blood Disorders: No - Integumentary Hx Dermatological Disorder: No - Musculoskeletal/Rheumatological Hx Musculoskeletal Disorders: No - Gastrointestinal Hx Gastrointestinal Disorders: Yes (CONSTIPATION,LOST 40 LBS WITHIN 2 MONTHS) Hx Diverticulitis: Yes (02/08/12) - Genitourinary/Gynecological Hx Genitourinary Disorders: Yes (URINARY FREQUENCY,UTERINE PROLAPSE) - Psychiatric Hx Psychophysiologic Disorder: No Hx Substance Use: No - Surgical History Hx Cardiac Catheterization: Yes - Anesthesia Hx Anesthesia Reactions: No Hx Malignant Hyperthermia: No - Suicidal Assessment Feels Threatened In Home Enviroment: No Family/Social History - Physician Review Nursing Documentation Reviewed: Yes Family/Social History: No Known Family HX Smoking Status: Never Smoked Hx Alcohol Use: No Hx Substance Use: No Hx Substance Use Treatment: No Allergies/Home Meds Allergies/Adverse Reactions: Allergies No Known Allergies Allergy (Verified 06/02/17 07:28) Home Medications: Home Meds Medication Instructions Recorded Confirmed Warfarin [Coumadin] 5 mg PO QAM 10/19/16 06/02/17 Warfarin [Coumadin] 1 mg PO MWF 05/23/17 06/02/17 Apixaban [Eliquis] 5 mg PO BID 05/31/17 06/02/17 Levothyroxine [Synthroid] 88 mcg PO DAILY 06/02/17 06/02/17 Lisinopril/Hydrochlorothiazide 1 tab PO DAILY 06/02/17 06/02/17 [Lisinopril-Hydrochlorothiazide 25 mg-20 mg] Review of Systems - Physician Review All systems were reviewed & negative as marked: Yes - Review of Systems Constitutional: absent: Fatigue Cardiovascular: absent: Chest Pain Gastrointestinal: absent: Abdominal Pain Musculoskeletal: Other (right hip pain; right leg pain ) Physical Exam Vital Signs Reviewed: Yes Vital Signs Pulse Resp BP Pulse Ox 06/02/17 08:52 83 16 141/97 H 100 - Systems Exam Head: Present: Atraumatic, Normocephalic Pupils: Present: PERRL Extroacular Muscles: Present: EOMI Conjunctiva: Present: Normal Mouth: Present: Moist Mucous Membranes Neck: Present: Normal Range of Motion Respiratory/Chest: Present: Clear to Auscultation, Good Air Exchange. No: Respiratory Distress, Accessory Muscle Use Cardiovascular: Present: Regular Rate and Rhythm, Normal S1, S2. No: Murmurs Abdomen: Present: Normal Bowel Sounds. No: Tenderness, Distention, Peritoneal Signs Back: Present: Other (paralumbarspinal tenderness) Upper Extremity: Present: Normal Inspection. No: Cyanosis, Edema Lower Extremity: Present: Normal Inspection, Other (straight leg raising on right ). No: Edema Neurological: Present: GCS=15, CN II-XII Intact, Speech Normal Skin: Present: Warm, Dry, Normal Color. No: Rashes Psychiatric: Present: Alert, Oriented x 3, Normal Insight, Normal Concentration Medical Decision Making ED Course and Treatment: 06/02/17 07:39 Impression: A 71 year old female with right hip and right leg pain. Differential Diagnosis included but are not limited to: Plan: -- EKG -- Radiology: LS Spine AP/Lat, Pelvis -- Duplex lower extremity vein right leg Ultrasound -- Labs -- Urinalysis -- Reassess and disposition Progress Notes: EKG: Ordered, reviewed, and independently interpreted the EKG. Rate : 63 BPM Rhythm : Atrial fibrillation Interpretation : No ST-segment elevations or depressions, no T-wave inversions, normal intervals. Comparison : No previous EKG for comparison. 06/02/17 08:25 PROCEDURE: Radiographs of the pelvis. Caretaker Grounds : Jose Angel Kothari MD Report Date : 06/02/2017 08:14:45 HISTORY:right hip pain COMPARISON:None. FINDINGS: BONES:Pelvic Bones: Unremarkable. Hips: Grossly unremarkable. JOINTS:Sacroiliac Joints: Unremarkable. Pubic Symphysis: Unremarkable. OTHER FINDINGS:None. IMPRESSION: Unremarkable radiographs of the pelvis. PROCEDURE: Radiographs of the Lumbar Spine. Caretaker Grounds : Jose Angel Kothari MD Report Date : 06/02/2017 08:15:43 HISTORY:back pain COMPARISON:No prior. FINDINGS: BONES:Normal alignment. No listhesis. No fracture. DISC SPACES:Unremarkable. OTHER FINDINGS:None. IMPRESSION: Unremarkable radiographs of the lumbar spine. 06/02/17 09:05 The patient has be given multiple rounds of pain medications and she states she has unsteady gait. The patient has been accepted under the hospitalist who will evaluate PT and unsteady gait. - Lab Interpretations Lab Results: 06/02/17 07:32 06/02/17 07:32 Lab Results 06/02/17 07:32: Sodium 139, Potassium 3.0 L, Chloride 101, Carbon Dioxide 29, Anion Gap 13, BUN 14, Creatinine 0.9, Est GFR ( Amer) > 60, Est GFR (Non- Af Amer) > 60, Random Glucose 104, Calcium 9.4, Total Bilirubin 1.0, AST 25, ALT 24, Alkaline Phosphatase 69, Total Protein 7.4, Albumin 4.1, Globulin 3.3, Albumin/Globulin Ratio 1.2 06/02/17 07:32: PT 16.7 H, INR 1.51 H, APTT 31.1 06/02/17 07:32: WBC 5.9, RBC 4.40, Hgb 12.7, Hct 38.4, MCV 87.3, MCH 28.9, MCHC 33.1, RDW 14.5, Plt Count 145, MPV 12.5 H, Gran % 64.0, Lymph % (Auto) 27.0, [place] % (Auto) 7.4 H, Eos % (Auto) 1.4 L, Baso % (Auto) 0.2, Gran # 3.75, Lymph # 1.6, Cannon # 0.4, Eos # 0.1, Baso # 0.01 - RAD Interpretation Radiology Orders: 06/02/17 07:26 LS SPINE AP/LAT [RAD] Stat PELVIS ONE VIEW [RAD] Stat 06/02/17 07:27 DUPLEX LOWER EXTRM VEIN RIGHT [US] Stat - Medication Orders Current Medication Orders: Tramadol HCl (Ultram) 50 mg PO TID PRN PRN Reason: pain moderate Discontinued Medications Ketorolac Tromethamine (Toradol) 30 mg IVP STAT STA Stop: 06/02/17 07:27 Last Admin: 06/02/17 07:41 Dose: 30 mg MAR Pain Assessment Document 06/02/17 07:41 OCS (Rec: 06/02/17 07:41 OCS [id number]) Pain Reassessment Is this a pain reassessment? Yes Sleep Is patient sleeping during reassessment? No Presence of Pain Presence of Pain Yes Pain Scale Used Pain Scale Used Numeric Location Left, Right or Bilateral Right Pain Location Body Site Leg Description Description Constant Intensity of Pain at present 10 Aggravating Factors ADL's IVP Administration Document 06/02/17 07:41 OCS (Rec: 06/02/17 07:41 OCS [id number]) Charges for Administration # of IVP Administrations 1 Morphine Sulfate (Morphine) 2 mg IVP STAT STA Stop: 06/02/17 08:32 Last Admin: 06/02/17 08:42 Dose: 2 mg MAR Pain Assessment Document 06/02/17 08:42 OCS (Rec: 06/02/17 08:42 OCS [id number]) Pain Reassessment Is this a pain reassessment? Yes Sleep Is patient sleeping during reassessment? No Presence of Pain Presence of Pain Yes Pain Scale Used Pain Scale Used Numeric Location Left, Right or Bilateral Right Pain Location Body Site Leg Description Description Constant Intensity of Pain at present 8 Aggravating Factors ADL's IVP Administration Document 06/02/17 08:42 OCS (Rec: 06/02/17 08:42 OCS [id number]) Charges for Administration # of IVP Administrations 1 Pneumococcal Polyvalent Vaccine (Pneumovax 23 Vaccine) 0.5 ml IM .ONCE ONE Stop: 06/02/17 13:06 Potassium Chloride (K-Dur 20 Meq Er Tab) 40 meq PO STAT STA Stop: 06/02/17 08:27 Last Admin: 06/02/17 08:35 Dose: 40 meq - Scribe Statement The provider has reviewed the documentation as recorded by the Bee [place] Provider Scribe Attestation: All medical record entries made by the Scribe were at my direction and personally dictated by me. I have reviewed the chart and agree that the record accurately reflects my personal performance of the history, physical exam, medical decision making, and the department course for this patient. I have also personally directed, reviewed, and agree with the discharge instructions and disposition. Disposition/Present on Arrival - Present on Arrival Any Indicators Present on Arrival: No History of DVT/PE: No History of Uncontrolled Diabetes: No Urinary Catheter: No History of Decub. Ulcer: No History Surgical Site Infection Following: None - Disposition Have Diagnosis and Disposition been Completed?: Yes Diagnosis: Back pain Disposition: HOSPITALIZED Disposition Time: 09:00 Condition: STABLE
[2017-06-02 07:43] LABS: BASO # 0.01 K/mm3 (0.0-2.0); BASO % 0.2 % (0.0-3.0); EOS # 0.1 (0.0-0.7); EOS % 1.4 % (1.5-5.0); GRAN # 3.75 (1.4-6.5); HEMATOCRIT 38.4 % (36.0-48.0); LYMPH # 1.6 (1.2-3.4); MEAN CELL VOLUME 87.3 fl (80.0-105.0); MEAN CORPUSCULAR HEMOGLOBIN 28.9 pg (25.0-35.0); MEAN CORPUSCULAR HGB CONC 33.1 g/dl (31.0-37.0); MEAN PLATELET VOLUME 12.5 fl (7.0-11.0); MONO # 0.4 (0.1-0.6); MONO % 7.4 % (1.0-6.0); RED CELL DISTRIBUTION WIDTH 14.5 % (11.5-14.5); WHITE BLOOD COUNT 5.9 10^3/ul (4.5-11.0)
[2017-06-02 07:59] LABS: INR 1.51 (0.93-1.08); PARTIAL THROMBOPLASTIN TIME 31.1 Seconds (25.1-36.5)
--- NOTE | 2017-06-02 08:16 | RAD ---
PROCEDURE: Radiographs of the pelvis. HISTORY: right hip pain COMPARISON: None. FINDINGS: BONES: Pelvic Bones: Unremarkable. Hips: Grossly unremarkable. JOINTS: Sacroiliac Joints: Unremarkable. Pubic Symphysis: Unremarkable. OTHER FINDINGS: None. IMPRESSION: Unremarkable radiographs of the pelvis.
--- NOTE | 2017-06-02 08:17 | RAD ---
PROCEDURE: Radiographs of the Lumbar Spine. HISTORY: back pain COMPARISON: No prior. FINDINGS: BONES: Normal alignment. No listhesis. No fracture. DISC SPACES: Unremarkable. OTHER FINDINGS: None. IMPRESSION: Unremarkable radiographs of the lumbar spine.
[2017-06-02 08:26] LABS: ALB/GLOB RATIO 1.2 (1.1-1.8); ALKALINE PHOSPHATASE 69 U/L (38-126); ALT/SGPT 24 U/L (7-56); AST/SGOT 25 U/L (14-36); BLOOD UREA NITROGEN 14 mg/dL (7-21); CALCIUM 9.4 mg/dL (8.4-10.5); CARBON DIOXIDE 29 mmol/L (21-33); CHLORIDE 101 mmol/L (98-107); GFR AFRICAN-AMERICAN > 60; GLUCOSE,RANDOM 104 mg/dL (70-110); SODIUM 139 mmol/L (132-148); TOTAL PROTEIN 7.4 g/dL (5.8-8.3)
[2017-06-02] MEDS ORDERED: Potassium Chloride 20 mEq ER Tab PO STA (08:26)
[2017-06-02] MEDS ORDERED: Morphine 2 mg/ml ISec IVP STA (08:31)
[2017-06-02 08:32] VITALS: BMI 23.0
[2017-06-02] MEDS ORDERED: Pneumococcal 23-Valent Vaccine IM ONE (13:05)
[2017-06-02] MEDS ORDERED: Influenza Vaccine 60 mcg/0.5 mL SYR (4YR UP) IM ONE (13:05)
--- NOTE | 2017-06-02 13:29 | CP.PCM.HP ---
History of Present Illness - History of Present Illness History of Present Illness: H/P for Dr. Lauren GILLIAM DO, PGY-1 CC: Back pain HPI: 71 F with PMHx of HTN, A-Fib on coumadin, ML disc degeneration, and hypothyroid presents with 12 hour duration of lower back pain starting in her lumbar area and radiating down her R buttock to her right leg and foot. Pt's at bedside providing history. Pt's states that she has had episodes of pain in the past, but this time she was not able to get out of bed. Pt and her deny any focal neurological deficits, any loss of sensation, and any loss of motor function. Pt recently was at [facility] for abdominal pain with n/v, at which time she was diagnosed with uncomplicated sigmoid diverticulitis for which she was recommended to f/u outpatient with an endoscopy and colonoscopy. She had this colonoscopy done on Tuesday, and she was feeling fine until this morning when she had the pain. Pt denies f/ch/cp/sob/n/v/d/dysuria/frequency/urgency/hematuria/hematochezia/ hematemesis PSHx: Colonoscopy, EGD PMHx: HTN, A-fib, ML disc degeneration, Hypothyroid All: NKDA SocHx: Denies smoking, etoh, illicits Hosp: February for abdominal pain FamHx: Non-contributory Meds: Eliquis, Coumadin, Synthroid ROS: Const'l: pt denies fever, chills, generalized weakness ENT: pt denies dysphagia, otalgia, hearing deficit, rhinorrhea Eyes: pt denies sudden loss of vision, diplopia, blurred vision MSK: See HPI Cardio: pt denies sob, heart murmur, cp Pulm: pt denies cough, hemoptysis, wheeze GI: pt denies loss of appetite, abdominal pain, constipation, melena, n/v/d : pt denies burning on urination, urinary frequency, hematuria, urinary urgency Neuro: pt denies paresis, paresthesia, dizziness, rojas, numbness, tingling Derm: pt denies skin changes, lesions, nail changes Endo: pt denies intolerance to heat/cold, diaphoresis, night sweats, polydipsia Psych: pt denies anxiety, depression, mood changes Present on Admission - Present on Admission Any Indicators Present on Admission: No Past Patient History - Infectious Disease Hx of Infectious Diseases: None - Past Social History Smoking Status: Never Smoked - CARDIAC Hx Cardiac Disorders: No Hx Cardia Arrhythmia: Yes (afib) Hx Hypertension: Yes - PULMONARY Hx Respiratory Disorders: No - NEUROLOGICAL Hx Neurological Disorder: No - HEENT Hx HEENT Problems: (glasses for reading, [place]) Hx Cataracts: Yes (b/l sx) - RENAL Hx Chronic Kidney Disease: No - ENDOCRINE/METABOLIC Hx Endocrine Disorders: Yes Hx Hypothyroidism: Yes - HEMATOLOGICAL/ONCOLOGICAL Hx Blood Disorders: No - INTEGUMENTARY Hx Dermatological Problems: No - MUSCULOSKELETAL/RHEUMATOLOGICAL Hx Falls: No - GASTROINTESTINAL Hx Gastrointestinal Disorders: Yes (CONSTIPATION,LOST 40 LBS WITHIN 2 MONTHS) Hx Diverticulitis: Yes (02/08/12) Other/Comment: pt denies constipation,poor appetite, 40 lb weight loss 2015 and 5 lbs 2016 total of 45 lbs not on purpose, colonoscopy done 05/31/17 dx diverticulosis, hemorrhoids, gastritis - GENITOURINARY/GYNECOLOGICAL Hx Genitourinary Disorders: Yes (URINARY FREQUENCY,UTERINE PROLAPSE) - PSYCHIATRIC Hx Substance Use: No - SURGICAL HISTORY Hx Surgeries: Yes Hx Cardiac Catheterization: Yes (01/24/17 due to abnormal stress test) - ANESTHESIA Hx Anesthesia Reactions: No Hx Malignant Hyperthermia: No Meds Allergies/Adverse Reactions: Allergies Allergy/AdvReac Type Severity Reaction Status Date / Time No Known Allergies Allergy Verified 06/02/17 07:28 Physical Exam - Additional Findings Additional findings: Phys Exam: VS as below Const'l: a&o x 4, nad Head/Neck: neck supple, no jvd, trachea midline, carotid midline, no cervical /head mass Eyes: myriam, nonicteric sclera, eom intact ENT: auditory acuity grossly intact, throat not congested, no nasal deformity Cardio: rrr, no m/r/g, no carotid bruit, nml s1, s2 Pulm: no accessory muscle use, equal nml breath sounds bilaterally, ctab Abd: s/nt/nd, nbs x 4 q, no palpable masses Derm: no rashes, no ulcers, no lesions Extr: +Straight leg positive; no edema, no cyanosis, no calf tenderness, no lesions, no varicosities Neuro: cn II-XII grossly intact, ue and le 5/5 muscle strength bilaterally, no los ue, le bilaterally and core MSK: +TTP in R Lumbar area, L3-L4 Results - Vital Signs Recent Vital Signs: Last Vital Signs Temp Pulse 83 06/02/17 12:55 Resp 16 06/02/17 12:55 BP 141/97 H 06/02/17 08:52 Pulse Ox 100 06/02/17 08:52 - Labs Result Diagrams: 06/02/17 07:32 06/02/17 07:32 Assessment & Plan - Assessment and Plan (Free Text) Assessment: A/P 70 yo F w/PMHx of carlos eduardo on coumadin, diverticulitis, htn, hypothyroidism, presents with 4 day of L abd pain. CT positive for acute sigmoid diverticulitis and L adnexal mass Acute Back Pain - Toradol prn q6 - Neurontin 300 mg HS - PT/OT HTN: lisinopril/hctz Shady Fib: - Pt recently was off of Coumadin for 5 days (before day before yesterday) because she had a scope day before yesterday - Was bridged with eliquis. Currently INR is subtherapeutic ( at 1.5) - Eliquis for two more days then back to Coumadin regimen - Coumadin MWF 5; Coumadin 1 daily Hypothyroidism: - Levothyroxine 88mcg PPx: - Protonix - Coumadin as above
[2017-06-02] MEDS: Levothyroxine 88 MCG TAB PO SCH (14:45)
--- NOTE | 2017-06-02 18:41 | CARD ---
APPROVED REPORT EKG Measurement Heart [id number] <Conclusion> Atrial fibrillation Nonspecific T wave abnormality, probably digitalis effect Abnormal ECG
--- NOTE | 2017-06-02 19:44 | US ---
PROCEDURE: Right lower extremity venous US HISTORY: Leg pain and swelling. Evaluate for DVT. PHYSICIAN(S): Maximiliano Coombs M.D. TECHNIQUE: Duplex sonography and color-flow Doppler with graded compression were used to evaluate the deep venous system of the right lower extremity. FINDINGS: The visualized deep venous system of the right lower extremity is sonographically normal and compressible. Normal waveforms and augmentation are seen. There is no sonographic evidence for deep venous thrombosis in the visualized segments of the right lower extremity. IMPRESSION: 1. No sonographic evidence for deep venous thrombosis in the visualized segments of the right lower extremity.
[2017-06-03 04:56] VITALS: RESP 20
[2017-06-03] MEDS ORDERED: Pantoprazole 40 mg EC Tab PO SCH (06:00)
[2017-06-03 08:00] LABS: BASO # 0.02 K/mm3 (0.0-2.0); BASO % 0.4 % (0.0-3.0); EOS # 0.1 (0.0-0.7); EOS % 2.2 % (1.5-5.0); GRAN # 2.7 (1.4-6.5); GRAN % 60.8 % (50.0-68.0); HEMATOCRIT 36.9 % (36.0-48.0); LYMPH # 1.2 (1.2-3.4); LYMPH % 27.4 % (22.0-35.0); MEAN CELL VOLUME 87.6 fl (80.0-105.0); MEAN CORPUSCULAR HEMOGLOBIN 28.7 pg (25.0-35.0); MEAN CORPUSCULAR HGB CONC 32.8 g/dl (31.0-37.0); MEAN PLATELET VOLUME 12.1 fl (7.0-11.0); MONO # 0.4 (0.1-0.6); MONO % 9.2 % (1.0-6.0); RED CELL DISTRIBUTION WIDTH 14.6 % (11.5-14.5); WHITE BLOOD COUNT 4.5 10^3/ul (4.5-11.0)
[2017-06-03 08:07] LABS: INR 1.71 (0.93-1.08)
[2017-06-03 09:40] LABS: ALB/GLOB RATIO 1.2 (1.1-1.8); ALKALINE PHOSPHATASE 63 U/L (38-126); ALT/SGPT 24 U/L (7-56); AST/SGOT 23 U/L (14-36); BILIRUBIN,TOTAL 0.9 mg/dL (0.2-1.3); BLOOD UREA NITROGEN 17 mg/dL (7-21); CALCIUM 9.3 mg/dL (8.4-10.5); CARBON DIOXIDE 27 mmol/L (21-33); CHLORIDE 101 mmol/L (98-107); GFR AFRICAN-AMERICAN > 60; GLUCOSE,RANDOM 92 mg/dL (70-110); POTASSIUM 3.9 mmol/L (3.6-5.0); SODIUM 137 mmol/L (132-148); TOTAL PROTEIN 7.1 g/dL (5.8-8.3)
[2017-06-03 09:51] VITALS: BP 128/65; TEMP 97.4; O2SAT 98
[2017-06-03] MEDS: Levothyroxine 88 MCG TAB PO SCH (10:28)
[2017-06-03 10:32] VITALS: PULSE 72
[2017-06-03] MEDS ORDERED: POLYETHYLENE GLYCOL 3350 17 GM/Dose PACKET PO SCH (13:00)
[2017-06-03] MEDS ORDERED: Oxycodone/Acetaminophen 5/325 mg Tab PO PRN (13:00)
--- NOTE | 2017-06-03 14:42 | CP.PCM.DIS ---
Provider - Provider Date of Admission: 06/02/17 09:01 Attending physician: Joi Aguilar MD Time Spent in preparation of Discharge (in minutes): 45 Hospital Course - Lab Results Lab Results: Most Recent Lab Values WBC 4.5 10^3/ul (4.5-11.0) D 06/03/17 07:30 RBC 4.21 10^6/uL (3.5-6.1) 06/03/17 07:30 Hgb 12.1 g/dL (12.0-16.0) 06/03/17 07:30 Hct 36.9 % (36.0-48.0) 06/03/17 07:30 MCV 87.6 fl (80.0-105.0) 06/03/17 07:30 MCH 28.7 pg (25.0-35.0) 06/03/17 07:30 MCHC 32.8 g/dl (31.0-37.0) 06/03/17 07:30 RDW 14.6 % (11.5-14.5) H 06/03/17 07:30 Plt Count 138 10^3/uL (120.0-450.0) 06/03/17 07:30 MPV 12.1 fl (7.0-11.0) H 06/03/17 07:30 Gran % 60.8 % (50.0-68.0) 06/03/17 07:30 Lymph % (Auto) 27.4 % (22.0-35.0) 06/03/17 07:30 [place] % (Auto) 9.2 % (1.0-6.0) H 06/03/17 07:30 Eos % (Auto) 2.2 % (1.5-5.0) 06/03/17 07:30 Baso % (Auto) 0.4 % (0.0-3.0) 06/03/17 07:30 Gran # 2.70 (1.4-6.5) 06/03/17 07:30 Lymph # 1.2 (1.2-3.4) 06/03/17 07:30 [place] # 0.4 (0.1-0.6) 06/03/17 07:30 Eos # 0.1 (0.0-0.7) 06/03/17 07:30 Baso # 0.02 K/mm3 (0.0-2.0) 06/03/17 07:30 PT 19.0 SECONDS (9.4-12.5) H 06/03/17 07:30 INR 1.71 (0.93-1.08) H 06/03/17 07:30 APTT 31.1 Seconds (25.1-36.5) 06/02/17 07:32 Sodium 137 mmol/L (132-148) 06/03/17 07:30 Potassium 3.9 mmol/L (3.6-5.0) 06/03/17 07:30 Chloride 101 mmol/L (98-107) 06/03/17 07:30 Carbon Dioxide 27 mmol/L (21-33) 06/03/17 07:30 Anion Gap 13 (10-20) 06/03/17 07:30 BUN 17 mg/dL (7-21) 06/03/17 07:30 Creatinine 0.9 mg/dl (0.7-1.2) 06/03/17 07:30 Est GFR ( Amer) > 60 06/03/17 07:30 Est GFR (Non-Af Amer) > 60 06/03/17 07:30 Random Glucose 92 mg/dL (70-110) 06/03/17 07:30 Calcium 9.3 mg/dL (8.4-10.5) 06/03/17 07:30 Total Bilirubin 0.9 mg/dL (0.2-1.3) 06/03/17 07:30 AST 23 U/L (14-36) 06/03/17 07:30 ALT 24 U/L (7-56) 06/03/17 07:30 Alkaline Phosphatase 63 U/L (38-126) 06/03/17 07:30 Total Protein 7.1 g/dL (5.8-8.3) 06/03/17 07:30 Albumin 3.9 g/dL (3.0-4.8) 06/03/17 07:30 Globulin 3.2 gm/dL 06/03/17 07:30 Albumin/Globulin Ratio 1.2 (1.1-1.8) 06/03/17 07:30 - Hospital Course Hospital Course: HPI Day of Admission: 71 F with PMHx of HTN, A-Fib on coumadin, ML disc degeneration, and hypothyroid presents with 12 hour duration of lower back pain starting in her lumbar area and radiating down her R buttock to her right leg and foot. Pt's at bedside providing history. Pt's states that she has had episodes of pain in the past, but this time she was not able to get out of bed. Pt and her deny any focal neurological deficits, any loss of sensation, and any loss of motor function. Pt recently was at [facility] [place] for abdominal pain with n/v, at which time she was diagnosed with uncomplicated sigmoid diverticulitis for which she was recommended to f/u outpatient with an endoscopy and colonoscopy. She had this colonoscopy done on Tuesday, and she was feeling fine until this morning when she had the pain. Pt denies f/ch/cp/sob/n/v/d/dysuria/frequency/urgency/hematuria/hematochezia/ hematemesis Hospital Course: Pt's pain was controlled with flexeril, percocet, and gabapentin HS. Pt was able to walk with PT, and PT recommended home discharge. Pt was medically cleared for d/c. Pelvic and Lumbar XR showed no acute disease. A/P Day of Discharge: 70 yo F w/PMHx of a.fib on coumadin, diverticulitis, htn, hypothyroidism, presents with 4 day of L abd pain. CT positive for acute sigmoid diverticulitis and L adnexal mass Acute Back Pain - Toradol prn q6 - Neurontin 300 mg HS - PT/OT HTN: lisinopril/hctz A. Fib: - Pt recently was off of Coumadin for 5 days (before day before yesterday) because she had a scope day before yesterday - Was bridged with eliquis. Currently INR is subtherapeutic ( at 1.5) - Eliquis for two more days then back to Coumadin regimen - Coumadin MWF 5; Coumadin 1 daily Hypothyroidism: - Levothyroxine 88mcg PPx: - Protonix - Coumadin as above Discharge Exam - Additional Findings Additional findings: Phys Exam: VS as below Const'l: a&o x 4, nad Head/Neck: neck supple, no jvd, trachea midline, carotid midline, no cervical /head mass Eyes: myriam, nonicteric sclera, eom intact ENT: auditory acuity grossly intact, throat not congested, no nasal deformity Cardio: rrr, no m/r/g, no carotid bruit, nml s1, s2 Pulm: no accessory muscle use, equal nml breath sounds bilaterally, ctab Abd: s/nt/nd, nbs x 4 q, no palpable masses Derm: no rashes, no ulcers, no lesions Extr: +Straight leg positive; no edema, no cyanosis, no calf tenderness, no lesions, no varicosities Neuro: cn II-XII grossly intact, ue and le 5/5 muscle strength bilaterally, no los ue, le bilaterally and core MSK: +TTP in R Lumbar area, L3-L4 Discharge Plan - Follow Up Plan Condition: STABLE Disposition: HOME/ ROUTINE Instructions: Warfarin (By mouth), Back Pain (GEN) Additional Instructions: Please follow up with Dr. Ornelas outpatient - need a CT Abdomen and Pelvis If your symptoms persist or worsen please return to the ED immediately PLEASE FOLLOW COUMADIN INSTRUCTIONS.
== END 2017-06-03 18:00 | disposition home or self-care (01) ==
LOC: ED 06:59 → ERH 09:01 → INTOOBSV 09:01 → ERH 09:24 → 5RNO 09:55
PROVIDERS: ADMIT Hospitalist; ATTEND Hospitalist
DX: M51.36 Other intervertebral disc degeneration, lumbar region (principal); K57.32 Diverticulitis of large intestine without perforation or abscess without bleeding; I48.91 Unspecified atrial fibrillation; I10 Essential (primary) hypertension; E03.9 Hypothyroidism, unspecified; R26.81 Unsteadiness on feet; Z79.01 Long term (current) use of anticoagulants
CPT/HCPCS: 36415; 72100; 72170; 80053; 82948; 85025; 85610; 85730; 93005; 93971; 96374; 96375; 96376; 97110; 97161; 97530; 99285; G0378; G8978; G8979; J1885; J2270

== ENCOUNTER 2017-07-12 08:16 | Inpatient (IN) | payer MEDICARE, OTHER ==
--- NOTE | 2017-07-12 09:18 | ED PDOC ---
Arrival/HPI - General Historian: Patient - History of Present Illness Time/Duration: Other (5 days) Symptom Onset: Sudden Symptom Course: Unchanged Activities at Onset: Rest, Light Context: Home <Marisabel Don - Last Filed: 07/12/17 18:23> <Balbir Fontenot - Last Filed: 07/12/17 22:12> - General Chief Complaint: Breast Problem Time Seen by Provider: 07/12/17 08:57 - History of Present Illness Narrative History of Present Illness (Text): 07/12/17 09:15 A 71 year old female, whose past medical history includes hypertension, presents to the emergency department complaining of 5 day duration developing area of induration below the left breast. As per the patient's who translated, the area has become larger, erythematous and painful. The patient denies fevers, chills, headache, dizziness, chest pain, shortness of breath, dyspnea on exertion, cough, abdominal pain, nausea, vomiting, diarrhea, back pain, neck pain, urinary/bowel changes, or any other complaint. PMD: Dr. Segal (Marisabel Don) Past Medical History - Provider Review Nursing Documentation Reviewed: Yes - Infectious Disease Hx of Infectious Diseases: None - Cardiac Hx Cardiac Disorders: Yes (afib, s/p cardiac cath) Hx Hypertension: Yes - Pulmonary Hx Respiratory Disorders: No - Neurological Hx Neurological Disorder: No - HEENT Hx HEENT Disorder: (glasses for reading, [email or web address]) Hx Cataracts: Yes (b/l sx) - Renal Hx Renal Disorder: No - Endocrine/Metabolic Hx Endocrine Disorders: Yes Hx Hypothyroidism: Yes - Hematological/Oncological Hx Blood Disorders: No - Integumentary Hx Dermatological Disorder: No - Musculoskeletal/Rheumatological Hx Falls: No - Gastrointestinal Hx Gastrointestinal Disorders: Yes (CONSTIPATION,LOST 40 LBS WITHIN 2 MONTHS) Hx Diverticulitis: Yes (02/08/12) Other/Comment: pt denies constipation,poor appetite, 40 lb weight loss 2015 and 5 lbs 2016 total of 45 lbs not on purpose, colonoscopy done 05/31/17 dx diverticulosis, hemorrhoids, gastritis - Genitourinary/Gynecological Hx Genitourinary Disorders: Yes (URINARY FREQUENCY,UTERINE PROLAPSE) - Psychiatric Hx Psychophysiologic Disorder: No Hx Substance Use: No - Surgical History Hx Cardiac Catheterization: Yes (01/24/17 due to abnormal stress test) - Anesthesia Hx Anesthesia Reactions: No Hx Malignant Hyperthermia: No - Suicidal Assessment Feels Threatened In Home Enviroment: No <Marisabel Don - Last Filed: 07/12/17 18:23> Family/Social History - Physician Review Nursing Documentation Reviewed: Yes Family/Social History: No Known Family HX Smoking Status: Never Smoked Hx Alcohol Use: No Hx Substance Use: No Hx Substance Use Treatment: No <Marisabel Don - Last Filed: 07/12/17 18:23> Allergies/Home Meds <Marisabel Don - Last Filed: 07/12/17 18:23> <CorieStephanieAshleigh - Last Filed: 07/12/17 22:12> Allergies/Adverse Reactions: Allergies No Known Allergies Allergy (Verified 07/12/17 12:14) Home Medications: Home Meds Medication Instructions Recorded Confirmed Warfarin [Coumadin] 5 mg PO QAM 10/19/16 07/12/17 Warfarin [Coumadin] 1 mg PO MW 05/23/17 07/12/17 Apixaban [Eliquis] 5 mg PO BID 05/31/17 07/12/17 Levothyroxine [Synthroid] 88 mcg PO DAILY 06/02/17 07/12/17 Lisinopril/Hydrochlorothiazide 1 tab PO DAILY 06/02/17 07/12/17 [Lisinopril-Hctz 20-25 mg Tab] Review of Systems - Physician Review All systems were reviewed & negative as marked: Yes - Review of Systems Constitutional: absent: Fevers, Night Sweats Respiratory: absent: SOB, Cough Cardiovascular: absent: Chest Pain, TURNER Gastrointestinal: absent: Abdominal Pain, Stool Changes, Diarrhea, Nausea, Vomiting Genitourinary Female: absent: Urine Output Changes Musculoskeletal: absent: Back Pain, Neck Pain Skin: Other (Area of induration under the left breast. ) Neurological: absent: Headache, Dizziness <Marisabel Don - Last Filed: 07/12/17 18:23> Physical Exam Vital Signs Reviewed: Yes Temperature: Afebrile Blood Pressure: Hypertensive Pulse: Regular Respiratory Rate: Normal Appearance: Positive for: Well-Appearing, Non-Toxic, Comfortable Pain Distress: None Mental Status: Positive for: Alert and Oriented X 3 - Systems Exam Head: Present: Atraumatic, Normocephalic Pupils: Present: PERRL Extroacular Muscles: Present: EOMI Conjunctiva: Present: Normal Mouth: Present: Moist Mucous Membranes Neck: Present: Normal Range of Motion Respiratory/Chest: Present: Clear to Auscultation, Good Air Exchange. No: Respiratory Distress, Accessory Muscle Use Cardiovascular: Present: Regular Rate and Rhythm, Normal S1, S2. No: Murmurs Abdomen: Present: Normal Bowel Sounds. No: Tenderness, Distention, Peritoneal Signs Back: Present: Normal Inspection Upper Extremity: Present: Normal Inspection. No: Cyanosis, Edema Lower Extremity: Present: Normal Inspection. No: Edema Neurological: Present: GCS=15, CN II-XII Intact, Speech Normal Skin: Present: Warm, Dry, Normal Color, Induration (4 cm area of induration below the left breast. No fluctuance present.) Psychiatric: Present: Alert, Oriented x 3, Normal Insight, Normal Concentration <Marisabel Don - Last Filed: 07/12/17 18:23> Vital Signs Temp Pulse Resp BP Pulse Ox 07/12/17 12:18 68 18 152/69 H 100 07/12/17 09:05 97.7 F 71 18 158/72 H 100 Medical Decision Making - Lab Interpretations I have reviewed the lab results: Yes <Marisabel Don - Last Filed: 07/12/17 18:23> <Balbir Fontenot - Last Filed: 07/12/17 22:12> ED Course and Treatment: 07/12/17 09:20 Impression: A 71 year old female presents to the emergency department complaining of 5 day duration developing area of induration under the left breast that has become red and more painful. Plan: -- Left Breast Ultrasound -- Labs -- Blood Culture -- Tylenol -- Reassess and disposition Progress Notes: cbc; wnl cmp; wnl blood cultures pending pt INR; 3.97 ptt; breast US: FINDINGS: Exam examination of the left breast was performed in the region of focal pain and erythema in the 7-8 o'clock axis of the left breast, 10 cm from the nipple. There is a complex mass/ collection, hypoechoic, measuring approximately 2.8 x 1.8 by 1.9 cm. There is marked peripheral hypervascularity about this hypoechoic collection consistent with an abscess. No other solid or cystic mass is identified in the region of concern. IMPRESSION: Findings consistent with abscess in the 7-8 o'clock axis of the left breast corresponding to the region of erythema and tenderness. This abscess measures 2.8 cm in greatest dimension. No other significant abnormality is identified. vancomycin ordered IV. case discussed with dr. peck; accepts admission; will consult ID and surgery. case discussed with dr. ortiz who saw patient at bedside; advised vancomycin; impression; breast abscess, cellulitis breast, supratheraputic inr. admit med/surg. CHEST X-RAY Dictator : Maximiliano Longo MD Report Date : 07/12/2017 12:02:43 IMPRESSION: No active disease. (Marisabel Don) - Lab Interpretations Lab Results: 07/12/17 10:00 07/12/17 10:00 Lab Results 07/12/17 10:00: PT 46.9 H, INR 3.97 H*, APTT 44.2 H 07/12/17 10:00: WBC 8.4, RBC 4.21, Hgb 12.1, Hct 37.7, MCV 89.5, MCH 28.7, MCHC 32.1, RDW 14.9 H, Plt Count 165, MPV 12.4 H, Gran % 80.7 H, Lymph % (Auto) 8.7 L , [place] % (Auto) 10.2 H, Eos % (Auto) 0.2 L, Baso % (Auto) 0.2, Gran # 6.80 H, Lymph # 0.7 L, [place] # 0.9 H, Eos # 0.0, Baso # 0.02 07/12/17 10:00: Sodium 136, Potassium 4.2, Chloride 98, Carbon Dioxide 30, Anion Gap 13, BUN 19, Creatinine 0.8, Est GFR ( Amer) > 60, Est GFR (Non- Af Amer) > 60, Random Glucose 88, Calcium 9.5, Total Bilirubin 0.6, AST 17, ALT 28, Alkaline Phosphatase 84, Total Protein 7.1, Albumin 3.8, Globulin 3.3, Albumin/Globulin Ratio 1.1 - RAD Interpretation Radiology Orders: 07/12/17 09:14 BREAST LIMITED LT [US] Stat 07/12/17 11:06 CHEST PORTABLE [RAD] Stat - Medication Orders Current Medication Orders: Acetaminophen (Tylenol 325mg Tab) 650 mg PO Q6H PRN PRN Reason: Fever >100.4 F Famotidine (Pepcid) 20 mg PO 1000,2200 ANGELITA Last Admin: 07/12/17 21:46 Dose: 20 mg Hydrochlorothiazide (Hydrodiuril) 25 mg PO DAILY ANGELITA Vancomycin HCl (Vancomycin 1gm) 1 gm in 250 mls @ 167 mls/hr IVPB Q12H ANGELITA PRN Reason: Protocol Stop: 07/17/17 12:16 Last Admin: 07/12/17 12:37 Dose: 167 mls/hr eMAR Start Stop Document 07/12/17 12:37 HI (Rec: 07/12/17 12:37 HI [id number]) Intravenous Solution Start Date 07/12/17 Start Time 12:37 Sodium Chloride (Sodium Chloride 0.9%) 1,000 mls @ 100 mls/hr IV .Q10H ANGELITA Last Admin: 07/12/17 15:34 Dose: 100 mls/hr eMAR Start Stop Document 07/12/17 15:34 (Rec: 07/12/17 15:34 [id number]) Intravenous Solution Start Date 07/12/17 Start Time 15:34 Levothyroxine Sodium (Synthroid) 88 mcg PO ACB ANGELITA Lisinopril (Zestril) 20 mg PO DAILY ANGELITA Discontinued Medications Acetaminophen (Tylenol 325mg Tab) 975 mg PO STAT STA Stop: 07/12/17 09:16 Last Admin: 07/12/17 09:39 Dose: 975 mg MAR Pain/Vitals Document 07/12/17 09:39 SF (Rec: 07/12/17 09:40 SF [facility] [id number] Pain Reassessment Is This A Pain ReAssessment? Yes Sleep Is patient sleeping during reassessment? No Presence of Pain Presence of Pain Yes Pain Scale Used Pain Scale Used Numeric Location Left, Right or Bilateral Left Pain Location Body Site Chest Phytonadione 10 mg/ Sodium (Chloride) 51 mls @ 100 mls/hr IV ONCE ONE Stop: 07/12/17 15:02 Last Admin: 07/12/17 15:34 Dose: 100 mls/hr eMAR Start Stop Document 07/12/17 15:34 (Rec: 07/12/17 15:35 [id number]) Intravenous Solution Start Date 07/12/17 Start Time 15:35 Pneumococcal Polyvalent Vaccine (Pneumovax 23 Vaccine) 0.5 ml IM .ONCE ONE Stop: 07/12/17 15:16 - Scribe Statement The provider has reviewed the documentation as recorded by the Scribe <Marisabel Don - Last Filed: 07/12/17 18:23> - PA / GREIGE MENDER / Resident Statement MD/DO has reviewed & agrees with the documentation as recorded. <Balbir Fontenot - Last Filed: 07/12/17 22:12> - Scribe Statement Ayse Kinney Provider Scribe Attestation: All medical record entries made by the Scribe were at my direction and personally dictated by me. I have reviewed the chart and agree that the record accurately reflects my personal performance of the history, physical exam, medical decision making, and the department course for this patient. I have also personally directed, reviewed, and agree with the discharge instructions and disposition. (Marisabel Don) Disposition/Present on Arrival - Present on Arrival Any Indicators Present on Arrival: No History of DVT/PE: No History of Uncontrolled Diabetes: No Urinary Catheter: No History of Decub. Ulcer: No History Surgical Site Infection Following: None - Disposition Have Diagnosis and Disposition been Completed?: Yes Disposition Time: 11:15 Patient Plan: Admission <Marisabel Don - Last Filed: 07/12/17 18:23> <Balbir Fontenot - Last Filed: 07/12/17 22:12> - Disposition Diagnosis: Breast abscess, Cellulitis of breast, Supratherapeutic INR Disposition: HOSPITALIZED Patient Problems: Current Active Problems Problem Status Onset Breast abscess Acute Cellulitis of breast Acute Supratherapeutic INR Acute Condition: FAIR
[2017-07-12 10:17] LABS: BASO # 0.02 [, K/mm3] (0.0-2.0); BASO % 0.2 % (0.0-3.0); EOS % 0.2 % (1.5-5.0); GRAN # 6.8 (1.4-6.5); GRAN % 80.7 % (50.0-68.0); HEMOGLOBIN 12.1 g/dL (12.0-16.0); LYMPH # 0.7 (1.2-3.4); LYMPH % 8.7 % (22.0-35.0); MEAN CELL VOLUME 89.5 fl (80.0-105.0); MEAN CORPUSCULAR HEMOGLOBIN 28.7 pg (25.0-35.0); MEAN CORPUSCULAR HGB CONC 32.1 g/dl (31.0-37.0); MEAN PLATELET VOLUME 12.4 fl (7.0-11.0); MONO # 0.9 (0.1-0.6); MONO % 10.2 % (1.0-6.0); RBC 4.21 [, 10^6/uL] (3.5-6.1); RED CELL DISTRIBUTION WIDTH 14.9 % (11.5-14.5); WHITE BLOOD COUNT 8.4 [, 10^3/ul] (4.5-11.0)
[2017-07-12 10:25] LABS: ALB/GLOB RATIO 1.1 (1.1-1.8); ALBUMIN 3.8 g/dL (3.0-4.8); ALT/SGPT 28 U/L (7-56); AST/SGOT 17 U/L (14-36); BLOOD UREA NITROGEN 19 mg/dL (7-21); CALCIUM 9.5 mg/dL (8.4-10.5); GFR AFRICAN-AMERICAN > 60; GFR NON-AFRICAN AMERICAN > 60
[2017-07-12] MEDS ORDERED: Vancomycin 1gm in NS 250ml 1 GM/250 ML BAG IVPB STA (11:11)
--- NOTE | 2017-07-12 11:11 | US ---
PROCEDURE: Ultrasound left breast HISTORY: erythematous indurated mass, inferior left breast COMPARISON: 08/24/2016 TECHNIQUE: Targeted ultrasound examination left breast FINDINGS: Exam examination of the left breast was performed in the region of focal pain and erythema in the 7-8 o'clock axis of the left breast, 10 cm from the nipple. There is a complex mass/ collection, hypoechoic, measuring approximately 2.8 x 1.8 by 1.9 cm. There is marked peripheral hypervascularity about this hypoechoic collection consistent with an abscess. No other solid or cystic mass is identified in the region of concern. IMPRESSION: Findings consistent with abscess in the 7-8 o'clock axis of the left breast corresponding to the region of erythema and tenderness. This abscess measures 2.8 cm in greatest dimension. No other significant abnormality is identified.
[2017-07-12 11:37] LABS: PARTIAL THROMBOPLASTIN TIME 44.2 Seconds (25.1-36.5); PROTHROMBIN TIME 46.9 SECONDS (9.4-12.5)
[2017-07-12 11:39] LABS: INR 3.97 (0.93-1.08)
--- NOTE | 2017-07-12 12:04 | RAD ---
HISTORY: breast abscess/cellulitis COMPARISON: 10/19/2016 FINDINGS: LUNGS: No active pulmonary disease. PLEURA: No significant pleural effusion identified, no pneumothorax apparent. CARDIOVASCULAR: Normal. OSSEOUS STRUCTURES: No significant abnormalities. VISUALIZED UPPER ABDOMEN: Normal. OTHER FINDINGS: None. IMPRESSION: No active disease.
[2017-07-12] MEDS: Vancomycin 1gm in NS 250ml 1 GM/250 ML BAG IVPB SCH ×2 (12:37→23:45)
--- NOTE | 2017-07-12 13:34 | CP.PCM.HP ---
<Graham Medina - Last Filed: 07/12/17 13:27> History of Present Illness - History of Present Illness History of Present Illness: Graham Medina DO PGY1 - Internal Medicine H&P CC: Painful left breast mass x5 days HPI: 71 yo F with PMH of HTN, A-fib, ML disc degeneration, hypothyroidism, diverticulitis presents complaining of a painful left breast mass that has been growing for the past 5 days. She first noticed any change 5 days ago. The mass is in the inframammary fold in her bra line. She reports it has gotten larger, more painful, red, and warm since she first noticed it. She denies any discharge , nipple discharge, bleeding, fever, chills, nausea, vomiting, diarrhea, constipation, abdominal pain, chest pain, shortness of breath, cough, headache, or confusion. She reports a 50 lbs weight loss in the past year which she has already undergone workup for, to rule out malignancy. She has had annual breast exams and mammograms for many years, always negative. She denies any recent illness, recent travel, medication changes, insect bites, trauma. 12 point ROS was obtained and is negative except as above. PSHx: Colonoscopy, EGD PMHx: HTN, A-fib, ML disc degeneration, hypothyroidism, diverticulitis All: NKDA SocHx: Denies smoking, etoh, illicits FamHx: Non-contributory Meds: Coumadin, Synthroid, Lisinopril/HCTZ, flexeril, Gabapentin PMD: Dr. Segal Cardio: Dr. Castanon GI: [facility] Pharmacy: [facility] and [facility] Present on Admission - Present on Admission Any Indicators Present on Admission: No Past Patient History - Infectious Disease Hx of Infectious Diseases: None - Past Social History Smoking Status: Never Smoked - CARDIAC Hx Cardiac Disorders: Yes (afib, s/p cardiac cath) Hx Hypertension: Yes - PULMONARY Hx Respiratory Disorders: No - NEUROLOGICAL Hx Neurological Disorder: No - HEENT Hx HEENT Problems: (glasses for reading, [place]) Hx Cataracts: Yes (b/l sx) - RENAL Hx Chronic Kidney Disease: No - ENDOCRINE/METABOLIC Hx Endocrine Disorders: Yes Hx Hypothyroidism: Yes - HEMATOLOGICAL/ONCOLOGICAL Hx Blood Disorders: No - INTEGUMENTARY Hx Dermatological Problems: No - MUSCULOSKELETAL/RHEUMATOLOGICAL Hx Falls: No - GASTROINTESTINAL Hx Gastrointestinal Disorders: Yes (CONSTIPATION,LOST 40 LBS WITHIN 2 MONTHS) Hx Diverticulitis: Yes (02/08/12) Other/Comment: pt denies constipation,poor appetite, 40 lb weight loss 2015 and 5 lbs 2016 total of 45 lbs not on purpose, colonoscopy done 05/31/17 dx diverticulosis, hemorrhoids, gastritis - GENITOURINARY/GYNECOLOGICAL Hx Genitourinary Disorders: Yes (URINARY FREQUENCY,UTERINE PROLAPSE) - PSYCHIATRIC Hx Psychophysiologic Disorder: No Hx Substance Use: No - SURGICAL HISTORY Hx Cardiac Catheterization: Yes (01/24/17 due to abnormal stress test) - ANESTHESIA Hx Anesthesia Reactions: No Hx Malignant Hyperthermia: No Meds Allergies/Adverse Reactions: Allergies Allergy/AdvReac Type Severity Reaction Status Date / Time No Known Allergies Allergy Verified 07/12/17 12:14 Physical Exam - Constitutional Appears: Non-toxic, No Acute Distress - Head Exam Head Exam: ATRAUMATIC, NORMOCEPHALIC - Eye Exam Eye Exam: EOMI, Normal appearance, PERRL - ENT Exam ENT Exam: Mucous Membranes Moist - Respiratory Exam Respiratory Exam: Clear to Auscultation Bilateral, NORMAL BREATHING PATTERN. absent: Rales, Rhonchi, Wheezes - Cardiovascular Exam Cardiovascular Exam: Irregular Rhythm, +S1, +S2. absent: Tachycardia - GI/Abdominal Exam GI & Abdominal Exam: Normal Bowel Sounds, Soft. absent: Tenderness - Extremities Exam Extremities exam: Negative for: calf tenderness, pedal edema - Neurological Exam Neurological exam: Alert, Oriented x3 - Psychiatric Exam Psychiatric exam: Normal Affect, Normal Mood - Skin Skin Exam: Dry, Intact - Additional Findings Additional findings: Breast exam significant for approximately 6-7cm firm, indurated mass in medial aspect of left inframmary crease. Mass is erythematous and warm, without discharge or bleeding, extends 1cm below inframammary crease, fixed, tender. Surrounding skin normal. No nipple discharge or retraction. Right breast normal. No axillary, supra/infraclavicular, or cervical adenopathy Results - Vital Signs Recent Vital Signs: Last Vital Signs Temp 97.7 F 07/12/17 09:05 Pulse 68 07/12/17 12:18 Resp 18 07/12/17 12:18 BP 152/69 H 07/12/17 12:18 Pulse Ox 100 07/12/17 12:18 - Labs Result Diagrams: 07/12/17 10:00 07/12/17 10:00 Assessment & Plan - Assessment and Plan (Free Text) Assessment: 71 yo F with PMH of HTN, A-fib, ML disc degeneration, hypothyroidism, diverticulitis presents complaining of a painful left breast mass that has been growing for the past 5 days. Likely breast abscess. Plan Left breast mass - Mass most likely represents abscess, given clinical appearance and history ( duration). - Breast US in ER shows 2.8x1.8x1.9 cm hypoechoic mass in left breast at 7-8 o' clock position, consistent with abscess; no other lesions - Patient is afebrile with no leukocytosis - Will hold coumadin at this time and administer one time dose of Vit K in case of incision and drainage; pending surgical recs - Start vancomycin for empiric coverage of MRSA; per ID - Start IVF @100cc/hr - Tylenol PRN for fever - ID consult requested; appreciate recs - Surgery consult requested; appreciate recs Atrial fibrillation - Patient is currently rate controlled; anticoagulated on coumadin; currently supratherapeutic - Hold coumadin pending surgical recommendations HTN - Continue home lisinopril/HCTZ Hypothyroidism - Continue home Synthroid GI/DVT PPx: Patient is supratherapeutic on coumadin, add SCDs. Pepcid for GI. Patient seen, discussed, and reviewed with attending Dr. Kelsey <Maggie Kesley - Last Filed: 07/12/17 16:35> Results - Vital Signs Recent Vital Signs: Last Vital Signs Temp 97.7 F 07/12/17 14:46 Pulse 68 07/12/17 14:46 Resp 18 07/12/17 14:46 BP 152/69 H 07/12/17 14:46 Pulse Ox 100 07/12/17 12:18 - Labs Result Diagrams: 07/12/17 10:00 07/12/17 10:00 Attending/Attestation - Attestation I have personally seen and examined this patient.: Yes I have fully participated in the care of the patient.: Yes I have reviewed all pertinent clinical information: Yes Notes (Text): 07/12/17 16:31 Attending note; Patient seen and examined in ER. patient's by the bedside. Patient is alert, awake and oriented. Patient is a 71-year-old female with past medical history of hypertension, atrial fibrillation, sciatica, hypothyroidism, diverticulitis presents complaining of a painful left breast mass that has been growing for the past 5 days. small fluctuant erythematous mass on the left breast noted. started on IV vancomycin. Patient is afebrile and nontoxic. surgery evaluation requested for possible incision and drainage. Atrial fibrillation; on Coumadin. With INR of 3.97., Vitamin K one dose given. Monitor INR tomorrow. upon discharge patient will follow up with PMD Dr. Segal.
[2017-07-12] MEDS ORDERED: Phytonadione 10 MG in Sodium Chloride 0.9% 50 ML IV ONE (14:32)
--- NOTE | 2017-07-12 14:56 | CP.PCM.CON ---
<Benedict Lawrence - Last Filed: 07/12/17 16:01> History of Present Illness - History of Present Illness History of Present Illness: General Surgery Consult Note for Dr. Hirsch 71 year female with a past medical history of atrial fibrillation (on Coumadin), hypothyroidism, and diverticular disease who presents with 6 days of left breast pain. The patient states that 6 days ago she noticed some swelling beneath her left breast that has gradually enlarged, become hard, and tender to touch. She reports that the pain is worst with palpation or movement of the left breast and is something she has never experienced in the past. She denies any recent trauma to the area, use of new clothing/bras, or anything that may have precipitated the swelling to the breast. Furthermore, she denies fever, chills, bleeding, nipple discharge, or drainage from the area. The patient reports obtaining routine, age-appropriate mammograms, all of which have been negative for breast malignancy. Furthermore, the patient reports undergoing an extensive work up for the unintentional, fifty pound weight loss she has endured in the past year. Chart review a host of diagnostic test, including, but not limited to colonoscopy, upper endoscopy, and pancreatic CT scan- all of which have been negative for malignancy. Previous breast US and mammogram on 08/24/16 showed complex subcutaneous cyst likely sebaceous cyst 7x11mm. BIRADS 2. Surgical history: Colonoscopy, EGD, left heart catherization (not stents needed) PMH: HTN, A-fib, ML disc degeneration, hypothyroidism, diverticulitis Allergies: NKDA SocHx: Denies smoking, etoh, illicits FamHx: Non-contributory Meds: Coumadin, Synthroid, Lisinopril/HCTZ, flexeril, Gabapentin PMD: Dr. Segal Cardio: Dr. Castanon [facility]: [email or web address] Review of Systems - Review of Systems All systems: reviewed and no additional remarkable complaints except (as per hpi ) - Breasts Breasts: Mass, Pain, Swelling. absent: Nipple Discharge - Cardiovascular Cardiovascular: absent: Chest Pain, Chest Pain at Rest, Dyspnea - Respiratory Respiratory: absent: Dyspnea, Pain on Inspiration, Pain with Coughing - Neurological Neurological: absent: Numbness, Headaches, Memory Loss Past Patient History - Infectious Disease Hx of Infectious Diseases: None - Past Social History Smoking Status: Never Smoked - CARDIAC Hx Cardiac Disorders: Yes (afib, s/p cardiac cath) Hx Hypertension: Yes - PULMONARY Hx Respiratory Disorders: No - NEUROLOGICAL Hx Neurological Disorder: No - HEENT Hx HEENT Problems: (glasses for reading, confederated salish) Hx Cataracts: Yes (b/l sx) - RENAL Hx Chronic Kidney Disease: No - ENDOCRINE/METABOLIC Hx Endocrine Disorders: Yes Hx Hypothyroidism: Yes - HEMATOLOGICAL/ONCOLOGICAL Hx Blood Disorders: No - INTEGUMENTARY Hx Dermatological Problems: No - MUSCULOSKELETAL/RHEUMATOLOGICAL Hx Falls: No - GASTROINTESTINAL Hx Gastrointestinal Disorders: Yes (CONSTIPATION,LOST 40 LBS WITHIN 2 MONTHS) Hx Diverticulitis: Yes (02/08/12) Other/Comment: pt denies constipation,poor appetite, 40 lb weight loss 2015 and 5 lbs 2016 total of 45 lbs not on purpose, colonoscopy done 05/31/17 dx diverticulosis, hemorrhoids, gastritis - GENITOURINARY/GYNECOLOGICAL Hx Genitourinary Disorders: Yes (URINARY FREQUENCY,UTERINE PROLAPSE) - PSYCHIATRIC Hx Psychophysiologic Disorder: No Hx Substance Use: No - SURGICAL HISTORY Hx Cardiac Catheterization: Yes (01/24/17 due to abnormal stress test) - ANESTHESIA Hx Anesthesia Reactions: No Hx Malignant Hyperthermia: No Meds Home Medications: Home Medication List Medication Instructions Recorded Confirmed Type Doxycycline Hyclate 100 mg PO BID #14 capsule 07/14/17 Rx Apixaban [Eliquis] 5 mg PO BID #6 tab 07/15/17 Rx Allergies/Adverse Reactions: Allergies Allergy/AdvReac Type Severity Reaction Status Date / Time No Known Allergies Allergy Verified 07/12/17 12:14 - Medications Medications: Current Medications Acetaminophen (Tylenol 325mg Tab) 650 mg PO Q6H PRN PRN Reason: Fever >100.4 F Famotidine (Pepcid) 20 mg PO 1000,2200 [facility] Hydrochlorothiazide (Hydrodiuril) 25 mg PO DAILY [facility] Vancomycin HCl (Vancomycin 1gm) 1 gm in 250 mls @ 167 mls/hr IVPB Q12H [facility] PRN Reason: Protocol Stop: 07/17/17 12:16 Last Admin: 07/12/17 12:37 Dose: 167 mls/hr Sodium Chloride (Sodium Chloride 0.9%) 1,000 mls @ 100 mls/hr IV .Q10H [facility] Levothyroxine Sodium (Synthroid) 88 mcg PO ACB [facility] Lisinopril (Zestril) 20 mg PO DAILY [facility] Physical Exam - Constitutional Appears: Well, Non-toxic, No Acute Distress - Head Exam Head Exam: ATRAUMATIC, NORMOCEPHALIC - Eye Exam Eye Exam: EOMI, Normal appearance - ENT Exam ENT Exam: Mucous Membranes Moist, Normal Oropharynx - Neck Exam Neck exam: Positive for: Normal Inspection - Respiratory Exam Respiratory Exam: Clear to Auscultation Bilateral - Cardiovascular Exam Cardiovascular Exam: RRR, +S1, +S2 - GI/Abdominal Exam GI & Abdominal Exam: Normal Bowel Sounds, Soft. absent: Tenderness - Extremities Exam Extremities exam: Positive for: normal inspection. Negative for: calf tenderness - Back Exam Back exam: NORMAL INSPECTION. absent: CVA tenderness (L), CVA tenderness (R) - Neurological Exam Neurological exam: Alert, CN II-XII Intact, Oriented x3 - Psychiatric Exam Psychiatric exam: Normal Affect, Normal Mood - Skin Skin Exam: Dry, Intact, Normal Color, Warm Additional comments: in the left breast medial inframammary region there is a 5 x 3.5 cm area of erythema (whose borders were marked by a marking pen) with surrounding induration with a small area of fluctuance. Very tender to palpation Results - Vital Signs Recent Vital Signs: Last Vital Signs Temp 97.7 F 07/12/17 09:05 Pulse 68 07/12/17 12:18 Resp 18 07/12/17 12:18 BP 152/69 H 07/12/17 12:18 Pulse Ox 100 07/12/17 12:18 - Labs Result Diagrams: 07/12/17 10:00 07/12/17 10:00 Assessment & Plan - Assessment and Plan (Free Text) Assessment: 71 year old female with a past medical history of atrial fibrillation, diverticular disease, and hypothyroidism who presents with a left breast abscess and cellulitis with a supratherapeutic INR. Plan: - IV antibiotics (Vancomycin), ID is on board. - Consider FFP and Vitamin K for supratherapeutic INR. - NPO after midnight for possible OR tomorrow - Incision and Drainage or possible needle aspiration depending on size of fluctuance (currently is very small) - Warm compresses - Will FU AM labs - Case to be discussed with attending, Dr. Vincent. - Date & Time Date: 07/12/17 Time: 15:38 <Keenan Vincent - Last Filed: 07/16/17 21:21> Meds - Medications Medications: Current Medications Acetaminophen (Tylenol 325mg Tab) 650 mg PO Q6H PRN PRN Reason: Fever >100.4 F or Pain Enoxaparin Sodium (Lovenox) 60 mg SC Q12H [facility] PRN Reason: Protocol Last Admin: 07/16/17 17:18 Dose: 60 mg Famotidine (Pepcid) 20 mg PO 1000,2200 [facility] Last Admin: 07/16/17 09:46 Dose: 20 mg Hydrochlorothiazide (Hydrodiuril) 25 mg PO DAILY [facility] Last Admin: 07/16/17 09:45 Dose: 25 mg Vancomycin HCl (Vancomycin 1gm) 1 gm in 250 mls @ 167 mls/hr IVPB Q12H [facility] PRN Reason: Protocol Stop: 07/17/17 12:16 Last Admin: 07/16/17 12:25 Dose: 167 mls/hr Levothyroxine Sodium (Synthroid) 88 mcg PO ACB [facility] Last Admin: 07/16/17 09:45 Dose: 88 mcg Lisinopril (Zestril) 20 mg PO DAILY [facility] Last Admin: 07/16/17 09:45 Dose: 20 mg Warfarin Sodium (Coumadin) 5 mg PO 1800 [facility] PRN Reason: Protocol Last Admin: 07/15/17 17:40 Dose: 5 mg Results - Vital Signs Recent Vital Signs: Last Vital Signs Temp 98.1 F 07/16/17 16:30 Pulse 62 07/16/17 16:30 Resp 20 07/16/17 16:30 BP 152/81 H 07/16/17 16:30 Pulse Ox 100 07/16/17 16:30 - Labs Result Diagrams: 07/16/17 07:30 07/16/17 07:30 Labs: Laboratory Results - last 24 hr 07/16/17 07/16/17 07/16/17 07:30 07:30 07:30 WBC 4.9 RBC 4.01 Hgb 11.4 L Hct 35.3 L MCV 88.0 MCH 28.4 MCHC 32.3 RDW 14.3 Plt Count 192 MPV 12.3 H Gran % 67.3 Lymph % (Auto) 18.4 L Moffat % (Auto) 12.1 H Eos % (Auto) 1.8 Baso % (Auto) 0.4 Gran # 3.32 Lymph # 0.9 L Moffat # 0.6 Eos # 0.1 Baso # 0.02 PT 12.7 H INR 1.10 H Sodium 141 Potassium 3.4 L Chloride 103 Carbon Dioxide 27 Anion Gap 14 BUN 7 Creatinine 0.7 Est GFR ( Amer) > 60 Est GFR (Non-Af Amer) > 60 Random Glucose 94 Calcium 9.1 Magnesium Total Bilirubin 0.9 AST 20 ALT 23 Alkaline Phosphatase 78 Total Protein 6.8 Albumin 3.6 Globulin 3.2 Albumin/Globulin Ratio 1.1 07/16/17 09:22 WBC RBC Hgb Hct MCV MCH MCHC RDW Plt Count MPV Gran % Lymph % (Auto) Moffat % (Auto) Eos % (Auto) Baso % (Auto) Gran # Lymph # Moffat # Eos # Baso # PT INR Sodium Potassium Chloride Carbon Dioxide Anion Gap BUN Creatinine Est GFR ( Amer) Est GFR (Non-Af Amer) Random Glucose Calcium Magnesium 1.8 Total Bilirubin AST ALT Alkaline Phosphatase Total Protein Albumin Globulin Albumin/Globulin Ratio Attending/Attestation - Attestation I have personally seen and examined this patient.: Yes I have fully participated in the care of the patient.: Yes I have reviewed all pertinent clinical information: Yes Notes (Text): Pt was seen and examined at bedside Agree with above note and assessment Pt with Right breast pain and redness R breast tenderness and cellulitis with possible abscess Labs and radiology reviewed IV antibiotics NPO, IVF OR tomorrow for possible drainage Plan d.w pt in detail Risk and benefit explained in detail.
--- NOTE | 2017-07-12 15:01 | CARD ---
APPROVED REPORT EKG Measurement Heart [id number] <Conclusion> Atrial fibrillation Minimal voltage criteria for LVH, may be normal variant PRWP NSSTW changes
[2017-07-12 15:15] VITALS: BMI 22.1
[2017-07-12] MEDS ORDERED: Pneumococcal 23-Valent Vaccine IM ONE (15:15)
[2017-07-12] MEDS ORDERED: Influenza Vaccine 60 mcg/0.5 mL SYR (4YR UP) IM ONE (15:15)
[2017-07-12] MEDS ORDERED: Phytonadione 10 mg/ml Inj (Adult) ONE (15:19)
[2017-07-12] MEDS: Sodium Chloride 0.9% 1,000 ML IV SCH (15:34)
[2017-07-12 20:33] LABS: PH,URINE 6.5 (4.7-8.0); URINE BILIRUBIN NEGATIVE (NEGATIVE); URINE BLOOD TRACE-INTACT (NEGATIVE); URINE GLUCOSE (UA) NEGATIVE (NEGATIVE); URINE LEUKOCYTE ESTERASE NEGATIVE Leu/uL (NEGATIVE); URINE NITRATE NEGATIVE (NEGATIVE); URINE PROTEIN NEGATIVE mg/dL (<30 mg/dL)
[2017-07-12 20:35] LABS: URINE APPEARANCE CLEAR (CLEAR); URINE COLOR YELLOW (YELLOW)
[2017-07-12 20:59] LABS: URINE EPITHELIAL CELLS 0 - 2 /hpf (0-5); URINE RBC 0 - 2 /hpf (0-2); URINE WBC NEGATIVE /hpf (0-6)
--- NOTE | 2017-07-12 23:35 | CON ---
DATE: 07/12/2017 The patient is in bed, in no acute distress in the emergency room. CHIEF COMPLAINT: Left breast infection times several days. HISTORY OF PRESENT ILLNESS: This is a 71-year-old female from [place] with atrial fibrillation, hypertension, hypothyroidism, history of diverticulitis who has had history of cardiac cath and bilateral cataract surgery in the past with no known allergies, admitted with left breast pain and erythema times several days duration. No fevers and no chills. No chest pain, shortness of breath, or cough. No hemoptysis. No abdominal pain, diarrhea, or constipation. PAST MEDICAL HISTORY: Significant for atrial fibrillation, hypertension, hypothyroidism, and diverticulitis. PAST SURGICAL HISTORY: Significant for cardiac catheterization, bilateral cataract surgery. ALLERGIES: THE PATIENT HAS NO KNOWN ALLERGIES. MEDICATIONS: At home include the patient to be on Eliquis, Synthroid, lisinopril, Coumadin. PHYSICAL EXAMINATION: VITAL SIGNS: On exam, the patient is in bed, in no acute distress. The patient's is at the bedside in the emergency room with a temperature of 97, blood pressure is 150/70, respiratory rate of 18, heart rate of 68. HEENT: Examination of HEENT is unremarkable. NECK: Supple. LUNGS: Have decreased breath sounds. HEART: Normal S1, S2. ABDOMEN: Examination is soft, nontender. BREASTS: Examination of left breast border with the chest wall. Underneath the left breast is erythema, fluctuant abscess appearing tender to touch, approximately 4 to 5 cm in diameter, and no discharge. LABORATORY EXAMINATION: Reveals a white count of 8.4, hemoglobin of 12, platelets of 165. Coagulation, his INR is 3.97, BUN of 19, creatinine of 0.8. Chest x-ray is negative. Breast ultrasound is reviewed. Marisabel Don's note is reviewed. ASSESSMENT AND PLAN: This is a 71-year-old female with atrial fibrillation; hypertension; hypothyroidism; diverticulitis; on Coumadin for atrial fibrillation; on Eliquis with a left breast abscess and cellulitis; probable methicillin-resistant Staphylococcus aureus, it is at the chest wall breast border of the bottom of the left breast. We will start the patient on vancomycin and do a human immunodeficiency virus test, and do a methicillin-resistant Staphylococcus aureus screen and surgical consultation of her incision and drainage, and we will make further recommendations upon availability of initial results. Case discussed with the emergency room staff, and we will follow with you. Bill Card MD
[2017-07-13] MEDS: Sodium Chloride 0.9% 1,000 ML IV SCH ×3 (02:22→21:47)
[2017-07-13 06:45] LABS: BASO # 0.02 [, K/mm3] (0.0-2.0); BASO % 0.3 % (0.0-3.0); EOS % 0.6 % (1.5-5.0); GRAN # 5.27 (1.4-6.5); GRAN % 77.3 % (50.0-68.0); HEMOGLOBIN 11.3 g/dL (12.0-16.0); LYMPH # 0.9 (1.2-3.4); LYMPH % 12.5 % (22.0-35.0); MEAN CELL VOLUME 87.8 fl (80.0-105.0); MEAN CORPUSCULAR HEMOGLOBIN 28.3 pg (25.0-35.0); MEAN CORPUSCULAR HGB CONC 32.2 g/dl (31.0-37.0); MEAN PLATELET VOLUME 11.9 fl (7.0-11.0); MONO # 0.6 (0.1-0.6); MONO % 9.3 % (1.0-6.0); RED CELL DISTRIBUTION WIDTH 14.5 % (11.5-14.5); WHITE BLOOD COUNT 6.8 [, 10^3/ul] (4.5-11.0)
[2017-07-13 06:52] LABS: INR 1.89 (0.93-1.08); PARTIAL THROMBOPLASTIN TIME 32.3 Seconds (25.1-36.5)
[2017-07-13 07:35] LABS: ALB/GLOB RATIO 1.1 (1.1-1.8); ALBUMIN 3.4 g/dL (3.0-4.8); ALT/SGPT 20 U/L (7-56); AST/SGOT 20 U/L (14-36); BLOOD UREA NITROGEN 13 mg/dL (7-21); CALCIUM 8.7 mg/dL (8.4-10.5); GFR AFRICAN-AMERICAN > 60; GFR NON-AFRICAN AMERICAN > 60; MAGNESIUM 1.7 mg/dL (1.7-2.2)
[2017-07-13] MEDS ORDERED: Potassium Chloride 20 mEq ER Tab PO ONE ×2 (09:10→19:12)
--- NOTE | 2017-07-13 09:15 | CP.PCM.PN ---
<Graham Medina - Last Filed: 07/13/17 13:41> Subjective - Date & Time of Evaluation Date of Evaluation: 07/13/17 Time of Evaluation: 07:30 - Subjective Subjective: Graham Medina DO PGY1 - Internal Medicine Progress Note Patient seen and examined at bedside. No acute events overnight. Patient reports slightly worsened pain and increased tenderness. Denies fevers, chills, nausea, vomiting, diarrhea, constipation. Objective - Vital Signs/Intake and Output Vital Signs (last 24 hours): Temp Pulse Resp BP Pulse Ox 97.1 F L 62 19 163/72 H 100 07/12/17 19:20 07/12/17 19:20 07/12/17 19:20 07/12/17 19:20 07/12/17 19:20 Intake and Output: 07/13/17 07/13/17 06:59 18:59 Intake Total 1620 0 Balance 1620 0 - Medications Medications: Current Medications Acetaminophen (Tylenol 325mg Tab) 650 mg PO Q6H PRN PRN Reason: Fever >100.4 F Famotidine (Pepcid) 20 mg PO 1000,2200 [facility] Last Admin: 07/12/17 21:46 Dose: 20 mg Hydrochlorothiazide (Hydrodiuril) 25 mg PO DAILY [facility] Vancomycin HCl (Vancomycin 1gm) 1 gm in 250 mls @ 167 mls/hr IVPB Q12H [facility] PRN Reason: Protocol Stop: 07/17/17 12:16 Last Admin: 07/12/17 23:45 Dose: 167 mls/hr Sodium Chloride (Sodium Chloride 0.9%) 1,000 mls @ 100 mls/hr IV .Q10H [facility] Last Admin: 07/13/17 02:22 Dose: 100 mls/hr Levothyroxine Sodium (Synthroid) 88 mcg PO ACB [facility] Lisinopril (Zestril) 20 mg PO DAILY [facility] Potassium Chloride (K-Dur 20 Meq Er Tab) 40 meq PO ONCE ONE Stop: 07/13/17 09:11 - Labs Labs: 07/13/17 06:00 07/13/17 06:00 PT 22.0 SECONDS (9.4-12.5) H 07/13/17 06:00 INR 1.89 (0.93-1.08) H 07/13/17 06:00 APTT 32.3 Seconds (25.1-36.5) 07/13/17 06:00 - Constitutional Appears: Non-toxic, No Acute Distress - Head Exam Head Exam: ATRAUMATIC, NORMOCEPHALIC - Eye Exam Eye Exam: EOMI, Normal appearance, PERRL - ENT Exam ENT Exam: Mucous Membranes Moist - Neck Exam Neck Exam: Normal Inspection - Respiratory Exam Respiratory Exam: Clear to Ausculation Bilateral, NORMAL BREATHING PATTERN - Cardiovascular Exam Cardiovascular Exam: Irregular Rhythm, +S1, +S2 - GI/Abdominal Exam GI & Abdominal Exam: Soft, Normal Bowel Sounds. absent: Tenderness, Organomegaly - Extremities Exam Extremities Exam: absent: Calf Tenderness, Pedal Edema - Neurological Exam Neurological Exam: Alert, Awake, Oriented x3 - Psychiatric Exam Psychiatric exam: Normal Affect, Normal Mood - Skin Additional comments: Breast exam significant for approximately 6-7cm firm, indurated mass in medial aspect of left inframmary crease. Mass is erythematous and warm, without discharge or bleeding, extends 1cm below inframammary crease, fixed, tender. Surrounding skin normal. No nipple discharge or retraction. Right breast normal. No axillary, supra/infraclavicular, or cervical adenopathy Borders marked yesterday, erythema spread approximately 5mm beyond border superiorly. Increased tenderness. No change in fluctuance. Assessment and Plan - Assessment and Plan (Free Text) Assessment: 71 yo F with PMH of HTN, A-fib, ML disc degeneration, hypothyroidism, diverticulitis presents complaining of a painful left breast mass that has been growing for the past 5 days. Likely breast abscess. Plan Left breast mass - Mass most likely represents abscess, given clinical appearance and history ( duration). - Breast US in ER shows 2.8x1.8x1.9 cm hypoechoic mass in left breast at 7-8 o' clock position, consistent with abscess; no other lesions - Patient remains afebrile with no leukocytosis - Continue to hold coumadin at this time; INR decreased appropriately after holding yesterday and one dose of Vit K - Patient may go for I&D with surgery today, pending further assessment - Contiue vancomycin for empiric coverage of MRSA; per ID - Continue IVF @100cc/hr - Tylenol PRN for fever - ID consult requested; appreciate recs - Surgery consult requested; appreciate recs Atrial fibrillation - Patient is currently rate controlled; anticoagulated on coumadin - Hold coumadin pending surgical recommendations HTN - Continue home lisinopril/HCTZ Hypothyroidism - Continue home Synthroid GI/DVT PPx: SCDs. Pepcid for GI. Patient seen, discussed, and reviewed with attending Dr. Kelsey <Maggie Kelsey - Last Filed: 07/13/17 16:55> Objective - Vital Signs/Intake and Output Vital Signs (last 24 hours): Temp Pulse Resp BP Pulse Ox 97.1 F L 62 19 163/72 H 100 07/12/17 19:20 07/12/17 19:20 07/12/17 19:20 07/12/17 19:20 07/12/17 19:20 Intake and Output: 07/13/17 07/13/17 06:59 18:59 Intake Total 1620 0 Balance 1620 0 - Medications Medications: Current Medications Acetaminophen (Tylenol 325mg Tab) 650 mg PO Q6H PRN PRN Reason: Fever >100.4 F Famotidine (Pepcid) 20 mg PO 1000,2200 [facility] Last Admin: 07/13/17 09:33 Dose: 20 mg Hydrochlorothiazide (Hydrodiuril) 25 mg PO DAILY [facility] Last Admin: 07/13/17 09:29 Dose: 25 mg Vancomycin HCl (Vancomycin 1gm) 1 gm in 250 mls @ 167 mls/hr IVPB Q12H [facility] PRN Reason: Protocol Stop: 07/17/17 12:16 Last Admin: 07/13/17 13:40 Dose: 167 mls/hr Sodium Chloride (Sodium Chloride 0.9%) 1,000 mls @ 100 mls/hr IV .Q10H [facility] Last Admin: 07/13/17 13:31 Dose: 100 mls/hr Levothyroxine Sodium (Synthroid) 88 mcg PO ACB [facility] Last Admin: 07/13/17 09:29 Dose: 88 mcg Lisinopril (Zestril) 20 mg PO DAILY [facility] Last Admin: 07/13/17 09:28 Dose: 20 mg - Labs Labs: 07/13/17 06:00 07/13/17 06:00 PT 22.0 SECONDS (9.4-12.5) H 07/13/17 06:00 INR 1.89 (0.93-1.08) H 07/13/17 06:00 APTT 32.3 Seconds (25.1-36.5) 07/13/17 06:00 Attending/Attestation - Attestation I have personally seen and examined this patient.: Yes I have fully participated in the care of the patient.: Yes I have reviewed all pertinent clinical information, including history, physical exam and plan: Yes Notes (Text): 07/13/17 16:53 Attending note; Patient seen and examined with resident in room 370. Patient's by the bedside. Patient is alert, awake and oriented. Patient is a 71-year-old female with past medical history of hypertension, atrial fibrillation, sciatica, hypothyroidism, diverticulitis presents complaining of a painful left breast mass that has been growing for the past 5 days. small fluctuant erythematous mass on the left breast noted. started on IV vancomycin. Patient is afebrile and nontoxic. Plan for incision and drainage today. Atrial fibrillation; on Coumadin. INR is 1.89. Got 1 dose of vitamin K. FFP as needed. Case discussed with cardiology Dr. Castanon in detail. upon discharge patient will follow up with PMD Dr. Segal. 07/13/17 16:55
[2017-07-13] MEDS: Levothyroxine 88 MCG TAB PO SCH (09:29)
[2017-07-13] MEDS: Vancomycin 1gm in NS 250ml 1 GM/250 ML BAG IVPB SCH (13:40)
[2017-07-13] MEDS ORDERED: Midazolam 2 MG/2 ML VIAL ONE (19:34)
[2017-07-13] MEDS ORDERED: Propofol 10 mg/ml Inj (20 ML) ONE (19:39)
[2017-07-13] MEDS ORDERED: Bupivacaine 0.5% Inj(30mL) ONE ×2 (19:41→19:44)
--- NOTE | 2017-07-13 20:09 | PCM.SURG1 ---
Surgeon's Initial Post Op Note - Surgeon's Notes Surgeon: Dr. Vincent [employer] Repairer: Dr. Mckoy, PGY-3 Type of Anesthesia: IV Sedation, Local Anesthesia Administered By: Dr. Martin Pre-Operative Diagnosis: L breast Abscess Operative Findings: See operative report Post-Operative Diagnosis: Infected Left Breast Sebaceous cyst Operation Performed: Left breast incision & drainage with excision of sebaceous cyst content Specimen/Specimens Removed: sebaceous cyst content, breast tissue Estimated Blood Loss: EBL {In ML}: 5 Blood Products Given: N/A Drains Used: No Drains Post-Op Condition: Good Date of Surgery/Procedure: 07/13/17 Time of Surgery/Procedure: 20:09
[2017-07-13] MEDS ORDERED: Lactated Ringer's 1,000 ML IV SCH (20:15)
--- NOTE | 2017-07-14 00:44 | PN ---
DATE: 07/13/2017 SUBJECTIVE: The patient is in bed in no acute distress. PHYSICAL EXAMINATION: VITAL SIGNS: Temperature is 98, blood pressure is 100/80, respiratory rate of 18 and heart rate of 63. HEENT: Unremarkable. NECK: Supple. LUNGS: Have decreased breath sounds. HEART: Normal S1 and S2. ABDOMEN: Soft and nontender. LABORATORY EXAMINATION: Reveals a white count of 6.8, hemoglobin of 11 and platelets of 165. BUN of 13 and creatinine of 0.7. HIV is negative. Microbiology reveals MRSA nares not detected. The blood cultures are negative. The patient is scheduled OR for drainage of an abscess. ASSESSMENT AND PLAN: A 71-year-old female with atrial fibrillation, hypertension, hypothyroidism, diverticulitis; on Coumadin for atrial fibrillation, on Eliquis for left breast abscess and cellulitis, on vancomycin. We will check on the operating room cultures. Bill Card MD
[2017-07-14] MEDS: Vancomycin 1gm in NS 250ml 1 GM/250 ML BAG IVPB SCH ×2 (01:00→11:36)
--- NOTE | 2017-07-14 04:41 | CON ---
DATE: 07/13/2017 LOCATION: The patient is in room 370, bed 1. REASON FOR CONSULTATION: Atrial fibrillation, hypertension, and possible breast abscess. HISTORY OF PRESENT ILLNESS: A 71-year-old female who is known to have atrial fibrillation, hypertension, degenerative disk disease, hypothyroidism, diverticulitis, and admitted with painful left breast, swelling, and redness. The patient denies any other type of chest pain except for the site of the swelling and redness on the left breast. Denies any shortness of breath. Denies palpitation. Denies nausea, vomiting, dizziness, or syncope. PAST MEDICAL HISTORY: Positive for atrial fibrillation, hypertension, degenerative disk disease, hypothyroidism, and diverticulitis. ALLERGIES: NO KNOWN ALLERGIES. PERSONAL HISTORY: Denies smoking. Denies drinking. LIST OF MEDICATIONS AT HOME: The patient was on Coumadin, lisinopril, hydrochlorothiazide, Flexeril, gabapentin, Synthroid, and Coumadin. REVIEW OF SYSTEMS: All the systems reviewed, positive mentioned in the history, otherwise negative. PHYSICAL EXAMINATION: VITAL SIGNS: Blood pressure 151/70, respirations 18, pulse 72, and temperature 99.6. HEENT: Head is normocephalic. Eyes; pupils normal. Conjunctivae normal. Nose and throat normal. NECK: JVP low. Carotids equal. THORAX: AP diameter normal. LUNGS: Clear. BREASTS: Left breast has swelling and redness. CARDIOVASCULAR: S1 and S2. ABDOMEN: Soft. No tenderness. No organomegaly. EXTREMITIES: No clubbing. No cyanosis. LABORATORY DATA: Shows WBC 6.8, hemoglobin 11.3, hematocrit 35.1, and platelet count 165. Yesterday, prothrombin time was 46.9 and INR of 3.97, today prothrombin time 22.0 and INR 1.89. Today, PTT 32.3. Lab showed sodium 139, potassium 3.3, BUN 13, and creatinine 0.7. Bilirubin 0.9. AST and ALT normal. Phosphorus 2.7, magnesium 1.7, total protein 6.4, and albumin 3.4. Chest x-ray; no active disease. EKG showed atrial fibrillation, heart rate about 69 per minute, minimal voltage criteria for LVH, and nonspecific ST-T changes. DIAGNOSES: Swelling of breast with redness, possible breast abscess, atrial fibrillation, hypertension, diverticulosis, degenerative disk disease, hypothyroidism, and hypokalemia. PLAN: The patient already had received potassium 40 mEq p.o. today. We will give another 20 mEq p.o. today. The patient is on hydrochlorothiazide 25 mg daily, Pepcid 20 mg b.i.d., the patient is getting IV fluid 100 mL an hour, normal saline, Synthroid 88 mcg p.o. daily, vancomycin 1 g IV q.12 hours, and Zestril 20 mg daily. Repeat CBC and electrolytes. BUN has been ordered for tomorrow. From a cardiac point of view, the patient can go for incision and drainage of the abscess and has moderate risk. We will closely follow with you. Nena Castanon MD
[2017-07-14 05:18] LABS: BASO # 0.02 [, K/mm3] (0.0-2.0); BASO % 0.3 % (0.0-3.0); EOS # 0.1 (0.0-0.7); EOS % 1.3 % (1.5-5.0); GRAN # 5.26 (1.4-6.5); GRAN % 74.5 % (50.0-68.0); HEMOGLOBIN 11.1 g/dL (12.0-16.0); LYMPH % 13.7 % (22.0-35.0); MEAN CELL VOLUME 88.1 fl (80.0-105.0); MEAN CORPUSCULAR HEMOGLOBIN 28.8 pg (25.0-35.0); MEAN CORPUSCULAR HGB CONC 32.7 g/dl (31.0-37.0); MEAN PLATELET VOLUME 11.7 fl (7.0-11.0); MONO # 0.7 (0.1-0.6); MONO % 10.2 % (1.0-6.0); RBC 3.85 [, 10^6/uL] (3.5-6.1); RED CELL DISTRIBUTION WIDTH 14.3 % (11.5-14.5); WHITE BLOOD COUNT 7.1 [, 10^3/ul] (4.5-11.0)
[2017-07-14 07:45] LABS: ALB/GLOB RATIO 1.1 (1.1-1.8); ALBUMIN 3.3 g/dL (3.0-4.8); ALT/SGPT 28 U/L (7-56); AST/SGOT 24 U/L (14-36); BLOOD UREA NITROGEN 18 mg/dL (7-21); CALCIUM 9.1 mg/dL (8.4-10.5); GFR AFRICAN-AMERICAN > 60; GFR NON-AFRICAN AMERICAN > 60
[2017-07-14] MEDS: Levothyroxine 88 MCG TAB PO SCH (09:45)
[2017-07-14 11:04] LABS: INR 1.15 (0.93-1.08); PROTHROMBIN TIME 13.1 SECONDS (9.4-12.5)
--- NOTE | 2017-07-14 14:58 | CP.PCM.PN ---
<Lazara Mckoy - Last Filed: 07/14/17 14:55> Subjective - Date & Time of Evaluation Date of Evaluation: 07/14/17 Time of Evaluation: 07:00 - Subjective Subjective: Surgery: Dr. Vincent Pt seen and examined. Overnight, pt was acutely confused after the OR s/p anesthesia however, once the anesthesia wore off pt was AAO x 3. Currently, she states she feels better. Her pain has improved and she denies F/C. Pt is tolerating her diet and ambulating. Objective - Vital Signs/Intake and Output Vital Signs (last 24 hours): Temp Pulse Resp BP Pulse Ox 97.5 F L 87 20 135/71 99 07/14/17 09:17 07/14/17 11:02 07/14/17 09:17 07/14/17 11:02 07/14/17 09:17 Intake and Output: 07/14/17 07/14/17 06:59 18:59 Intake Total 0 0 Balance 0 0 - Medications Medications: Current Medications Acetaminophen (Tylenol 325mg Tab) 650 mg PO Q6H PRN PRN Reason: Fever >100.4 F Famotidine (Pepcid) 20 mg PO 1000,2200 [facility] Last Admin: 07/14/17 11:03 Dose: 20 mg Hydrochlorothiazide (Hydrodiuril) 25 mg PO DAILY [facility] Last Admin: 07/14/17 11:04 Dose: 25 mg Vancomycin HCl (Vancomycin 1gm) 1 gm in 250 mls @ 167 mls/hr IVPB Q12H [facility] PRN Reason: Protocol Stop: 07/17/17 12:16 Last Admin: 07/14/17 11:36 Dose: 167 mls/hr Sodium Chloride (Sodium Chloride 0.9%) 1,000 mls @ 100 mls/hr IV .Q10H [facility] Last Admin: 07/13/17 21:47 Dose: 100 mls/hr Levothyroxine Sodium (Synthroid) 88 mcg PO ACB [facility] Last Admin: 07/14/17 09:45 Dose: 88 mcg Lisinopril (Zestril) 20 mg PO DAILY [facility] Last Admin: 07/14/17 11:02 Dose: 20 mg Oxycodone/Acetaminophen (Percocet 5/325 Mg Tab) 1 tab PO Q4H PRN PRN Reason: Pain, moderate (4-7) Stop: 07/16/17 20:11 - Labs Labs: 07/14/17 05:00 07/14/17 05:00 PT 13.1 SECONDS (9.4-12.5) H 07/14/17 10:40 INR 1.15 (0.93-1.08) H 07/14/17 10:40 APTT 32.3 Seconds (25.1-36.5) 07/13/17 06:00 - Constitutional Appears: Well, No Acute Distress - Head Exam Head Exam: ATRAUMATIC, NORMOCEPHALIC - Eye Exam Eye Exam: Normal appearance - ENT Exam ENT Exam: Mucous Membranes Moist - Respiratory Exam Respiratory Exam: NORMAL BREATHING PATTERN - Cardiovascular Exam Cardiovascular Exam: RRR - GI/Abdominal Exam GI & Abdominal Exam: Soft. absent: Tenderness - Neurological Exam Neurological Exam: Alert, Awake, Oriented x3 - Skin Skin Exam: Dry, Warm - Additional Findings Additional findings: Left breast s/p I&D, packing removed, erythema improved markedly around the abscess cavity, wound clean w/o any purulent drainage noted. Assessment and Plan - Assessment and Plan (Free Text) Assessment: 71F s/p I&D of infected sebaceous cyst; POD#1 Plan: - continue daily packing changes BID - cont PO ABX - f/u with Dr. Vincent in 1 week - d/w Dr. Carlton Mckoy, PGY-3 Surgery <Keenan Vincent - Last Filed: 07/16/17 21:22> Objective - Vital Signs/Intake and Output Vital Signs (last 24 hours): Temp Pulse Resp BP Pulse Ox 98.1 F 62 20 152/81 H 100 07/16/17 16:30 07/16/17 16:30 07/16/17 16:30 07/16/17 16:30 07/16/17 16:30 - Medications Medications: Current Medications Acetaminophen (Tylenol 325mg Tab) 650 mg PO Q6H PRN PRN Reason: Fever >100.4 F or Pain Enoxaparin Sodium (Lovenox) 60 mg SC Q12H [facility] PRN Reason: Protocol Last Admin: 07/16/17 17:18 Dose: 60 mg Famotidine (Pepcid) 20 mg PO 1000,2200 [facility] Last Admin: 07/16/17 09:46 Dose: 20 mg Hydrochlorothiazide (Hydrodiuril) 25 mg PO DAILY [facility] Last Admin: 07/16/17 09:45 Dose: 25 mg Vancomycin HCl (Vancomycin 1gm) 1 gm in 250 mls @ 167 mls/hr IVPB Q12H [facility] PRN Reason: Protocol Stop: 07/17/17 12:16 Last Admin: 07/16/17 12:25 Dose: 167 mls/hr Levothyroxine Sodium (Synthroid) 88 mcg PO ACB [facility] Last Admin: 07/16/17 09:45 Dose: 88 mcg Lisinopril (Zestril) 20 mg PO DAILY [facility] Last Admin: 07/16/17 09:45 Dose: 20 mg Warfarin Sodium (Coumadin) 5 mg PO 1800 [facility] PRN Reason: Protocol Last Admin: 07/15/17 17:40 Dose: 5 mg - Labs Labs: 07/16/17 07:30 07/16/17 07:30 PT 12.7 SECONDS (9.4-12.5) H 07/16/17 07:30 INR 1.10 (0.93-1.08) H 07/16/17 07:30 APTT 32.3 Seconds (25.1-36.5) 07/13/17 06:00 Attending/Attestation - Attestation I have personally seen and examined this patient.: Yes I have fully participated in the care of the patient.: Yes I have reviewed all pertinent clinical information, including history, physical exam and plan: Yes Notes (Text): Pt was seen and examined at bedside Agree with above note and assessment Pt is improving Local wound care IV antibiotics DC plan Plan d.w pt in detail Risk and benefit explained in detail.
[2017-07-14] MEDS: Enoxaparin 60 mg Syringe SC SCH (18:14)
[2017-07-14] MEDS: Oxycodone/Acetaminophen 5/325 mg Tab PO PRN (18:15)
--- NOTE | 2017-07-14 19:46 | CP.PCM.PN ---
<Graham Medina - Last Filed: 07/14/17 19:43> Subjective - Date & Time of Evaluation Date of Evaluation: 07/14/17 Time of Evaluation: 07:30 - Subjective Subjective: Graham Medina DO PGY1 - Internal Medicine Progress Note Patient seen and examined at bedside. No acute events overnight. Patient is s/p incision and drainage of left breast abscess yesterday evening. She reports dramatic improvement in her pain and tenderness. Denies fevers, chills, nausea, vomiting, diarrhea, constipation. Objective - Vital Signs/Intake and Output Vital Signs (last 24 hours): Temp Pulse Resp BP Pulse Ox 98.3 F 64 18 130/55 L 98 07/14/17 16:00 07/14/17 16:00 07/14/17 16:00 07/14/17 16:00 07/14/17 16:00 Intake and Output: 07/14/17 07/15/17 18:59 06:59 Intake Total 0 Balance 0 - Medications Medications: Current Medications Acetaminophen (Tylenol 325mg Tab) 650 mg PO Q6H PRN PRN Reason: Fever >100.4 F Enoxaparin Sodium (Lovenox) 60 mg SC Q12H [facility] PRN Reason: Protocol Last Admin: 07/14/17 18:14 Dose: 60 mg Famotidine (Pepcid) 20 mg PO 1000,2200 [facility] Last Admin: 07/14/17 11:03 Dose: 20 mg Hydrochlorothiazide (Hydrodiuril) 25 mg PO DAILY [facility] Last Admin: 07/14/17 11:04 Dose: 25 mg Vancomycin HCl (Vancomycin 1gm) 1 gm in 250 mls @ 167 mls/hr IVPB Q12H [facility] PRN Reason: Protocol Stop: 07/17/17 12:16 Last Admin: 07/14/17 11:36 Dose: 167 mls/hr Levothyroxine Sodium (Synthroid) 88 mcg PO ACB [facility] Last Admin: 07/14/17 09:45 Dose: 88 mcg Lisinopril (Zestril) 20 mg PO DAILY [facility] Last Admin: 07/14/17 11:02 Dose: 20 mg Oxycodone/Acetaminophen (Percocet 5/325 Mg Tab) 1 tab PO Q4H PRN PRN Reason: Pain, moderate (4-7) Stop: 07/16/17 20:11 Last Admin: 07/14/17 18:15 Dose: 1 tab Warfarin Sodium (Coumadin) 5 mg PO 1800 [facility] PRN Reason: Protocol Last Admin: 07/14/17 18:14 Dose: 5 mg - Labs Labs: 07/14/17 05:00 07/14/17 05:00 PT 13.1 SECONDS (9.4-12.5) H 07/14/17 10:40 INR 1.15 (0.93-1.08) H 07/14/17 10:40 APTT 32.3 Seconds (25.1-36.5) 07/13/17 06:00 - Constitutional Appears: Non-toxic, No Acute Distress - Head Exam Head Exam: ATRAUMATIC, NORMOCEPHALIC - Eye Exam Eye Exam: EOMI, Normal appearance, PERRL - ENT Exam ENT Exam: Mucous Membranes Moist, Normal Exam - Neck Exam Neck Exam: Normal Inspection - Respiratory Exam Respiratory Exam: Clear to Ausculation Bilateral, NORMAL BREATHING PATTERN - Cardiovascular Exam Cardiovascular Exam: Irregular Rhythm, +S1, +S2. absent: Tachycardia - GI/Abdominal Exam GI & Abdominal Exam: Soft, Normal Bowel Sounds. absent: Tenderness - Extremities Exam Extremities Exam: absent: Calf Tenderness, Pedal Edema - Neurological Exam Neurological Exam: Alert, Awake, Oriented x3 - Psychiatric Exam Psychiatric exam: Normal Affect, Normal Mood - Skin Skin Exam: Dry, Intact Additional comments: Breast exam significant for wound, s/p I&D, dressing in place, with serosanguinous drainage. No bleeding or purulence Assessment and Plan - Assessment and Plan (Free Text) Assessment: 71 yo F with PMH of HTN, A-fib, ML disc degeneration, hypothyroidism, diverticulitis presents complaining of a painful left breast mass that has been growing for the past 5 days. s/p I&D of breast abscess Plan Left breast abscess - s/p incision and drainage under anesthesia yesterday - No further bleeding or purulence; pain resolved - Patient remains afebrile with no leukocytosis - Will resume anticoagulation - Continue Vancomycin - Tylenol PRN for fever - ID consult requested; appreciate recs - Surgery consult requested; appreciate recs Atrial fibrillation - Patient is currently rate controlled - INR outside of therapeutic range; will bridge with lovenox for three days and restart coumadin HTN - Continue home lisinopril/HCTZ Hypothyroidism - Continue home Synthroid GI/DVT PPx: SCDs. Pepcid for GI. Patient seen, discussed, and reviewed with attending Dr. Yu <Nena Yu - Last Filed: 07/18/17 13:26> Objective - Vital Signs/Intake and Output Vital Signs (last 24 hours): Temp Pulse Resp BP Pulse Ox 98.5 F 65 20 152/94 H 99 07/16/17 21:30 07/16/17 21:30 07/16/17 21:30 07/16/17 21:30 07/16/17 21:30 - Labs Labs: 07/16/17 07:30 07/16/17 07:30 PT 12.7 SECONDS (9.4-12.5) H 07/16/17 07:30 INR 1.10 (0.93-1.08) H 07/16/17 07:30 APTT 32.3 Seconds (25.1-36.5) 07/13/17 06:00 Attending/Attestation - Attestation I have personally seen and examined this patient.: Yes I have fully participated in the care of the patient.: Yes I have reviewed all pertinent clinical information, including history, physical exam and plan: Yes Notes (Text): Patient was seen and examined with medical auditor. Patient is feeling better, she is afebrile, antibiotics can be switched to oral . INR is not therapeutic, will start on Lovenox and will restart warfarin. Patient can be discharged home and with follow up with PCP for INR checked in 3 days. Management plan was discussed in detail with patient. Education was provided. 07/18/17 13:25 07/18/17 13:26
[2017-07-14] MEDS: Sodium Chloride 0.9% 1,000 ML IV SCH (22:22)
[2017-07-15] MEDS: Vancomycin 1gm in NS 250ml 1 GM/250 ML BAG IVPB SCH ×2 (00:33→12:30)
--- NOTE | 2017-07-15 02:48 | PN ---
DATE: 07/14/2017 SUBJECTIVE: The patient is in bed in no acute distress, nontoxic. PHYSICAL EXAMINATION: VITAL SIGNS: Temperature is 98, blood pressure is 130/50, respiratory rate of 18. HEENT: Unremarkable. NECK: Supple LUNGS: Had decreased breath sounds. HEART: Normal S1, S2. ABDOMEN: Soft, nontender. LABORATORY DATA: Reveals a white count of 7.1, hemoglobin of 11, and platelets of 152,000. Chemistries reveals a BUN of 18, creatinine of 0.7. Urinalysis is noted. HIV is negative. Microbiology reveals the blood cultures are negative. Urine cultures are negative. Nares are negative. Review of orders reveals the patient to be on vancomycin. ASSESSMENT AND PLAN: This is a 71-year-old female with atrial fibrillation, hypertension, hypothyroidism, diverticulitis, on Coumadin for atrial fibrillation. Admitted with a left breast/at the border of her chest fold cellulitis and abscess, status post incision and drainage, on vancomycin. Most probably MRSA, although the cultures are pending. May be able to switch to p.o. doxycycline as an outpatient and complete therapy, waiting for the above, her cultures are pending. Bill Card MD
[2017-07-15] MEDS: Enoxaparin 60 mg Syringe SC SCH ×2 (05:27→17:39)
[2017-07-15] MEDS: Levothyroxine 88 MCG TAB PO SCH (06:30)
[2017-07-15 06:32] LABS: BASO # 0.02 [, K/mm3] (0.0-2.0); BASO % 0.4 % (0.0-3.0); EOS # 0.1 (0.0-0.7); EOS % 2.6 % (1.5-5.0); GRAN # 3.29 (1.4-6.5); GRAN % 62.2 % (50.0-68.0); HEMOGLOBIN 11.2 g/dL (12.0-16.0); LYMPH # 1.3 (1.2-3.4); LYMPH % 23.6 % (22.0-35.0); MEAN CELL VOLUME 87.6 fl (80.0-105.0); MEAN CORPUSCULAR HEMOGLOBIN 28.4 pg (25.0-35.0); MEAN CORPUSCULAR HGB CONC 32.5 g/dl (31.0-37.0); MEAN PLATELET VOLUME 11.8 fl (7.0-11.0); MONO # 0.6 (0.1-0.6); MONO % 11.2 % (1.0-6.0); RBC 3.94 [, 10^6/uL] (3.5-6.1); RED CELL DISTRIBUTION WIDTH 14.3 % (11.5-14.5); WHITE BLOOD COUNT 5.3 [, 10^3/ul] (4.5-11.0)
[2017-07-15 06:57] LABS: INR 1.13 (0.93-1.08)
[2017-07-15 07:26] LABS: ALB/GLOB RATIO 1.2 (1.1-1.8); ALBUMIN 3.3 g/dL (3.0-4.8); ALT/SGPT 19 U/L (7-56); AST/SGOT 20 U/L (14-36); BLOOD UREA NITROGEN 14 mg/dL (7-21); CALCIUM 8.8 mg/dL (8.4-10.5); GFR AFRICAN-AMERICAN > 60; GFR NON-AFRICAN AMERICAN > 60
--- NOTE | 2017-07-15 08:25 | PN ---
DATE: 07/14/2017 REASON FOR CONSULTATION AND FOLLOWUP: Atrial fibrillation, preoperative evaluation, and breast abscess. SUBJECTIVE: The patient denies any chest pain, shortness of breath, or any palpitation. Feels pain at the operative site. OBJECTIVE: GENERAL: Not in apparent distress, lying flat in the bed. VITAL SIGNS: As follows: Temperature afebrile, heart rate 87, and blood pressure 135/71. HEENT: PERRLA. Extraocular muscles intact. NECK: Supple. No carotid bruits or thyromegaly. CHEST: Clear to auscultation. HEART: S1 and S2 regular. ABDOMEN: Soft. EXTREMITIES: Clubbing and cyanosis negative. LABORATORY DATA: Blood workup as follows: WBC 7.1, hemoglobin 11.1, hematocrit 33.9, and platelet count 152. Chemistry shows sodium 130, potassium 3.9, chloride 103, carbon dioxide 26, anion gap of 13, BUN 18, and creatinine 0.7. IMPRESSION: A 71-year-old female with chronic atrial fibrillation, hypertension, degenerative joint disease, hypothyroidism, diverticulitis admitted with left breast abscess, status post incision and drainage, history of electrolytes imbalance, and was hypokalemic. RECOMMENDATIONS: Aggressively supplement potassium as needed. Continue hydrochlorothiazide. Continue secondary to levothyroxine. Continue broad spectrum antibiotic. Continue lisinopril. When the surgery is finished, we can restart anticoagulation. We will follow. We discontinue Telemetry. Heart rate is pretty stable. The patient was bradycardic and was not on beta-cat. Nena Borjas MD
[2017-07-15] MEDS ORDERED: Potassium Chloride 40 mEq/30 ml LIQ UD PO ONE (08:39)
--- NOTE | 2017-07-15 10:22 | CP.PCM.PN ---
<Lazara Mckoy - Last Filed: 07/15/17 10:30> Subjective - Date & Time of Evaluation Date of Evaluation: 07/15/17 Time of Evaluation: 07:30 - Subjective Subjective: Surgery: Dr. Vincent Pt seen and examined. No acute overnight events. States she feels well and denies any complaints at this time. Ambulating and tolerating diet. Denies N/V, F/C. Objective - Vital Signs/Intake and Output Vital Signs (last 24 hours): Temp Pulse Resp BP Pulse Ox 98.5 F 73 20 161/93 H 99 07/15/17 08:07 07/15/17 10:03 07/15/17 08:07 07/15/17 10:03 07/15/17 08:07 Intake and Output: 07/15/17 07/15/17 06:59 18:59 Intake Total 910 0 Balance 910 0 - Medications Medications: Current Medications Acetaminophen (Tylenol 325mg Tab) 650 mg PO Q6H PRN PRN Reason: Fever >100.4 F Enoxaparin Sodium (Lovenox) 60 mg SC Q12H [facility] PRN Reason: Protocol Last Admin: 07/15/17 05:27 Dose: 60 mg Famotidine (Pepcid) 20 mg PO 1000,2200 [facility] Last Admin: 07/15/17 10:03 Dose: 20 mg Hydrochlorothiazide (Hydrodiuril) 25 mg PO DAILY [facility] Last Admin: 07/15/17 10:03 Dose: 25 mg Vancomycin HCl (Vancomycin 1gm) 1 gm in 250 mls @ 167 mls/hr IVPB Q12H [facility] PRN Reason: Protocol Stop: 07/17/17 12:16 Last Admin: 07/15/17 00:33 Dose: 167 mls/hr Levothyroxine Sodium (Synthroid) 88 mcg PO ACB [facility] Last Admin: 07/15/17 06:30 Dose: 88 mcg Lisinopril (Zestril) 20 mg PO DAILY [facility] Last Admin: 07/15/17 10:03 Dose: 20 mg Oxycodone/Acetaminophen (Percocet 5/325 Mg Tab) 1 tab PO Q4H PRN PRN Reason: Pain, moderate (4-7) Stop: 07/16/17 20:11 Last Admin: 07/14/17 18:15 Dose: 1 tab Warfarin Sodium (Coumadin) 5 mg PO 1800 [facility] PRN Reason: Protocol Last Admin: 07/14/17 18:14 Dose: 5 mg - Labs Labs: 07/15/17 06:00 07/15/17 06:00 PT 13.0 SECONDS (9.4-12.5) H 07/15/17 06:00 INR 1.13 (0.93-1.08) H 07/15/17 06:00 APTT 32.3 Seconds (25.1-36.5) 07/13/17 06:00 - Constitutional Appears: Well, No Acute Distress - Eye Exam Eye Exam: Normal appearance - ENT Exam ENT Exam: Mucous Membranes Moist - Respiratory Exam Respiratory Exam: NORMAL BREATHING PATTERN - Cardiovascular Exam Cardiovascular Exam: RRR - GI/Abdominal Exam GI & Abdominal Exam: Soft. absent: Guarding, Tenderness - Extremities Exam Extremities Exam: absent: Tenderness - Neurological Exam Neurological Exam: Alert, Awake, Oriented x3 - Skin Skin Exam: Dry, Intact - Additional Findings Additional findings: L breast incision with packing, no active purulent drainage Assessment and Plan - Assessment and Plan (Free Text) Assessment: 71F s/p L breast I&D for infected sebaceous cyst; POD#2 Plan: - ok to DC home - daily packing changes - f/u with Dr. Vincent in 1 week - d/w Dr. Carlton Mckoy, PGY-3 Surgery <Keenan Vincent - Last Filed: 07/16/17 21:23> Objective - Vital Signs/Intake and Output Vital Signs (last 24 hours): Temp Pulse Resp BP Pulse Ox 98.1 F 62 20 152/81 H 100 07/16/17 16:30 07/16/17 16:30 07/16/17 16:30 07/16/17 16:30 07/16/17 16:30 - Medications Medications: Current Medications Acetaminophen (Tylenol 325mg Tab) 650 mg PO Q6H PRN PRN Reason: Fever >100.4 F or Pain Enoxaparin Sodium (Lovenox) 60 mg SC Q12H [facility] PRN Reason: Protocol Last Admin: 07/16/17 17:18 Dose: 60 mg Famotidine (Pepcid) 20 mg PO 1000,2200 [facility] Last Admin: 07/16/17 09:46 Dose: 20 mg Hydrochlorothiazide (Hydrodiuril) 25 mg PO DAILY [facility] Last Admin: 07/16/17 09:45 Dose: 25 mg Vancomycin HCl (Vancomycin 1gm) 1 gm in 250 mls @ 167 mls/hr IVPB Q12H [facility] PRN Reason: Protocol Stop: 07/17/17 12:16 Last Admin: 07/16/17 12:25 Dose: 167 mls/hr Levothyroxine Sodium (Synthroid) 88 mcg PO ACB [facility] Last Admin: 07/16/17 09:45 Dose: 88 mcg Lisinopril (Zestril) 20 mg PO DAILY [facility] Last Admin: 07/16/17 09:45 Dose: 20 mg Warfarin Sodium (Coumadin) 5 mg PO 1800 [facility] PRN Reason: Protocol Last Admin: 07/15/17 17:40 Dose: 5 mg - Labs Labs: 07/16/17 07:30 07/16/17 07:30 PT 12.7 SECONDS (9.4-12.5) H 07/16/17 07:30 INR 1.10 (0.93-1.08) H 07/16/17 07:30 APTT 32.3 Seconds (25.1-36.5) 07/13/17 06:00 Attending/Attestation - Attestation I have personally seen and examined this patient.: Yes I have fully participated in the care of the patient.: Yes I have reviewed all pertinent clinical information, including history, physical exam and plan: Yes Notes (Text): Pt was seen and examined at bedside next day Agree with above note and assessment DC plan Po antibiotics Plan d.w pt in detail f/u as out pt
[2017-07-15] MEDS: Oxycodone/Acetaminophen 5/325 mg Tab PO PRN (12:30)
--- NOTE | 2017-07-15 13:16 | PN ---
DATE: REASON FOR CONSULTATION AND FOLLOWUP: Atrial fibrillation, preop evaluation, postop followup breast cyst. SUBJECTIVE: The patient denies any chest pain, shortness of breath or any palpitations. Feels okay. No complaints of any chest pain, shortness of breath or any palpitations. OBJECTIVE: GENERAL: Not in apparent distress, sitting. Her is at the bedside. VITAL SIGNS: As follows; temperature afebrile, heart rate 73, and blood pressure 130/55. HEENT: PERRLA intact. NECK: Supple. No carotid bruits or thyromegaly. CHEST: Clear to auscultation. HEART: S1 and S2 regular. ABDOMEN: Soft. EXTREMITIES: Clubbing and cyanosis negative. LABORATORY DATA: Blood workup as follows; WBC , hemoglobin 11.2, hematocrit 34.5, and platelet count 164. Chemistry shows sodium 139, potassium 3.5, chloride 104, carbon dioxide 27, anion gap of 11, BUN 14, and creatinine 0.7. IMPRESSION: Breast sebaceous cyst infected status post incision and drainage and removal of infected sebaceous cyst, history of chronic atrial fibrillation, hypertension, degenerative joint disease, hypothyroidism, diverticular colonic disease, electrolyte imbalance, and hypokalemia. RECOMMENDATIONS: Aggressive medical treatment, continue levothyroxine, continue to supplement potassium, continue broad-spectrum antibiotic, Coumadin started yesterday. We will follow. Heart rate is stable. We will discontinue telemetry. We will supplement potassium. Thank you Dr. Kelsey for providing us the opportunity in taking care of the patient, Pamela Alvarez. Nena Borjas MD
--- NOTE | 2017-07-15 15:18 | CP.PCM.PN ---
<Graham Medina - Last Filed: 07/15/17 15:11> Subjective - Date & Time of Evaluation Date of Evaluation: 07/15/17 Time of Evaluation: 07:30 - Subjective Subjective: Graham Medina DO PGY1 - Internal Medicine Progress Note Patient seen and examined at bedside. No acute events overnight. Patient is s/p incision and drainage of left breast abscess POD2. She is having some slight pain around the wound. Denies fevers, chills, nausea, vomiting, diarrhea, constipation. is at bedside, reports that he is unable to change dressing for her at home. Objective - Vital Signs/Intake and Output Vital Signs (last 24 hours): Temp Pulse Resp BP Pulse Ox 98.5 F 73 20 161/93 H 99 07/15/17 08:07 07/15/17 10:03 07/15/17 08:07 07/15/17 10:03 07/15/17 08:07 Intake and Output: 07/15/17 07/15/17 06:59 18:59 Intake Total 910 0 Balance 910 0 - Medications Medications: Current Medications Acetaminophen (Tylenol 325mg Tab) 650 mg PO Q6H PRN PRN Reason: Fever >100.4 F Enoxaparin Sodium (Lovenox) 60 mg SC Q12H [facility] PRN Reason: Protocol Last Admin: 07/15/17 05:27 Dose: 60 mg Famotidine (Pepcid) 20 mg PO 1000,2200 [facility] Last Admin: 07/15/17 10:03 Dose: 20 mg Hydrochlorothiazide (Hydrodiuril) 25 mg PO DAILY [facility] Last Admin: 07/15/17 10:03 Dose: 25 mg Vancomycin HCl (Vancomycin 1gm) 1 gm in 250 mls @ 167 mls/hr IVPB Q12H [facility] PRN Reason: Protocol Stop: 07/17/17 12:16 Last Admin: 07/15/17 12:30 Dose: 167 mls/hr Levothyroxine Sodium (Synthroid) 88 mcg PO ACB [facility] Last Admin: 07/15/17 06:30 Dose: 88 mcg Lisinopril (Zestril) 20 mg PO DAILY [facility] Last Admin: 07/15/17 10:03 Dose: 20 mg Oxycodone/Acetaminophen (Percocet 5/325 Mg Tab) 1 tab PO Q4H PRN PRN Reason: Pain, moderate (4-7) Stop: 07/16/17 20:11 Last Admin: 07/15/17 12:30 Dose: 1 tab Warfarin Sodium (Coumadin) 5 mg PO 1800 [facility] PRN Reason: Protocol Last Admin: 07/14/17 18:14 Dose: 5 mg - Labs Labs: 07/15/17 06:00 07/15/17 06:00 PT 13.0 SECONDS (9.4-12.5) H 07/15/17 06:00 INR 1.13 (0.93-1.08) H 07/15/17 06:00 APTT 32.3 Seconds (25.1-36.5) 07/13/17 06:00 - Constitutional Appears: Non-toxic, No Acute Distress - Head Exam Head Exam: ATRAUMATIC, NORMOCEPHALIC - Eye Exam Eye Exam: EOMI, Normal appearance, PERRL - ENT Exam ENT Exam: Mucous Membranes Moist - Respiratory Exam Respiratory Exam: Clear to Ausculation Bilateral, NORMAL BREATHING PATTERN - Cardiovascular Exam Cardiovascular Exam: Irregular Rhythm, +S1, +S2 - GI/Abdominal Exam GI & Abdominal Exam: Soft, Normal Bowel Sounds. absent: Tenderness - Extremities Exam Extremities Exam: absent: Calf Tenderness, Pedal Edema - Neurological Exam Neurological Exam: Alert, Awake, Oriented x3 - Psychiatric Exam Psychiatric exam: Normal Affect, Normal Mood - Skin Skin Exam: Dry, Intact, Normal Color - Additional Findings Additional findings: Breast exam significant for wound, s/p I&D, dressing in place, with serosanguinous drainage. Small bleeding. No purulence Assessment and Plan - Assessment and Plan (Free Text) Assessment: 71 yo F with PMH of HTN, A-fib, ML disc degeneration, hypothyroidism, diverticulitis presents complaining of a painful left breast mass that has been growing for the prior 5 days. s/p I&D of breast abscess Plan Left breast abscess - s/p incision and drainage POD5 - Some small amount of bleeding, bright red blood in the dressing. No purulence. Mild pain and tenderness around the wound - Patient remains afebrile with no leukocytosis - Continue Vancomycin d4 - Tylenol PRN for fever - ID consult requested; appreciate recs - Surgery consult requested; appreciate recs Atrial fibrillation - Patient is currently rate controlled - INR subtherapeutic; will bridge with lovenox for three days - Continue coumadin 5mg daily - Daily INR check HTN - Continue home lisinopril/HCTZ Hypothyroidism - Continue home Synthroid GI/DVT PPx: SCDs and Lovenox/Coumadin. Pepcid for GI. Dispo: TCU eval requested for continued wound care, as patient and cannot safely do so at home Patient seen, discussed, and reviewed with attending Dr. Aguilar <Joi Aguilar - Last Filed: 07/15/17 17:23> Objective - Vital Signs/Intake and Output Vital Signs (last 24 hours): Temp Pulse Resp BP Pulse Ox 98.5 F 73 20 161/93 H 99 07/15/17 08:07 07/15/17 10:03 07/15/17 08:07 07/15/17 10:03 07/15/17 08:07 Intake and Output: 07/15/17 07/15/17 06:59 18:59 Intake Total 910 0 Balance 910 0 - Medications Medications: Current Medications Acetaminophen (Tylenol 325mg Tab) 650 mg PO Q6H PRN PRN Reason: Fever >100.4 F Enoxaparin Sodium (Lovenox) 60 mg SC Q12H [facility] PRN Reason: Protocol Last Admin: 07/15/17 05:27 Dose: 60 mg Famotidine (Pepcid) 20 mg PO 1000,2200 [facility] Last Admin: 07/15/17 10:03 Dose: 20 mg Hydrochlorothiazide (Hydrodiuril) 25 mg PO DAILY [facility] Last Admin: 07/15/17 10:03 Dose: 25 mg Vancomycin HCl (Vancomycin 1gm) 1 gm in 250 mls @ 167 mls/hr IVPB Q12H [facility] PRN Reason: Protocol Stop: 07/17/17 12:16 Last Admin: 07/15/17 12:30 Dose: 167 mls/hr Levothyroxine Sodium (Synthroid) 88 mcg PO ACB [facility] Last Admin: 07/15/17 06:30 Dose: 88 mcg Lisinopril (Zestril) 20 mg PO DAILY [facility] Last Admin: 07/15/17 10:03 Dose: 20 mg Oxycodone/Acetaminophen (Percocet 5/325 Mg Tab) 1 tab PO Q4H PRN PRN Reason: Pain, moderate (4-7) Stop: 07/16/17 20:11 Last Admin: 07/15/17 12:30 Dose: 1 tab Warfarin Sodium (Coumadin) 5 mg PO 1800 [facility] PRN Reason: Protocol Last Admin: 07/14/17 18:14 Dose: 5 mg - Labs Labs: 07/15/17 06:00 07/15/17 06:00 PT 13.0 SECONDS (9.4-12.5) H 07/15/17 06:00 INR 1.13 (0.93-1.08) H 07/15/17 06:00 APTT 32.3 Seconds (25.1-36.5) 07/13/17 06:00 Attending/Attestation - Attestation I have personally seen and examined this patient.: Yes I have fully participated in the care of the patient.: Yes I have reviewed all pertinent clinical information, including history, physical exam and plan: Yes Notes (Text): I have seen and examined the patient at bedside with the resident. Agree with the above note with the following additions/ exceptions: Briefly this is 71 year old female with history of hypertension, atrial fibrillation, sciatica, hypothyroidism, diverticulitis who was admitted for evaluation of left painful breast abscess s/p I&D. Continue vancomycin. As per surgery patient needs daily packing. Arrangements are being made for her to go to TCU. She also has atrial fibrillation and is on coumadin. Upon admission her INR was supratherapeutic which was lowered with vitamin K and FFP prior to I&D. INR is subtherapeutic today. Continue lovenox and coumadin. Plan was discussed in detail with the patient and her . Upon discharge patient will follow up with PMD Dr. Segal. Dr Joi Aguilar
--- NOTE | 2017-07-15 22:25 | CP.PCM.PN ---
Subjective - Date & Time of Evaluation Date of Evaluation: 07/15/17 Time of Evaluation: 11:00 - Subjective Subjective: Comfortable, improved pain in the left breast area, no fevers overnight. Objective - Vital Signs/Intake and Output Vital Signs (last 24 hours): Temp Pulse Resp BP Pulse Ox 98.5 F 73 20 161/93 H 99 07/15/17 08:07 07/15/17 10:03 07/15/17 08:07 07/15/17 10:03 07/15/17 08:07 Intake and Output: 07/15/17 07/15/17 06:59 18:59 Intake Total 910 0 Balance 910 0 - Medications Medications: Current Medications Acetaminophen (Tylenol 325mg Tab) 650 mg PO Q6H PRN PRN Reason: Fever >100.4 F Enoxaparin Sodium (Lovenox) 60 mg SC Q12H [facility] PRN Reason: Protocol Last Admin: 07/15/17 05:27 Dose: 60 mg Famotidine (Pepcid) 20 mg PO 1000,2200 [facility] Last Admin: 07/15/17 10:03 Dose: 20 mg Hydrochlorothiazide (Hydrodiuril) 25 mg PO DAILY [facility] Last Admin: 07/15/17 10:03 Dose: 25 mg Vancomycin HCl (Vancomycin 1gm) 1 gm in 250 mls @ 167 mls/hr IVPB Q12H [facility] PRN Reason: Protocol Stop: 07/17/17 12:16 Last Admin: 07/15/17 00:33 Dose: 167 mls/hr Levothyroxine Sodium (Synthroid) 88 mcg PO ACB [facility] Last Admin: 07/15/17 06:30 Dose: 88 mcg Lisinopril (Zestril) 20 mg PO DAILY [facility] Last Admin: 07/15/17 10:03 Dose: 20 mg Oxycodone/Acetaminophen (Percocet 5/325 Mg Tab) 1 tab PO Q4H PRN PRN Reason: Pain, moderate (4-7) Stop: 07/16/17 20:11 Last Admin: 07/14/17 18:15 Dose: 1 tab Warfarin Sodium (Coumadin) 5 mg PO 1800 [facility] PRN Reason: Protocol Last Admin: 07/14/17 18:14 Dose: 5 mg - Labs Labs: 07/15/17 06:00 07/15/17 06:00 PT 13.0 SECONDS (9.4-12.5) H 07/15/17 06:00 INR 1.13 (0.93-1.08) H 07/15/17 06:00 APTT 32.3 Seconds (25.1-36.5) 07/13/17 06:00 - Constitutional Appears: Non-toxic - Head Exam Head Exam: NORMAL INSPECTION - Neck Exam Neck Exam: absent: Meningismus - Cardiovascular Exam Cardiovascular Exam: +S1, +S2 - GI/Abdominal Exam GI & Abdominal Exam: Soft. absent: Tenderness Assessment and Plan - Assessment and Plan (Free Text) Plan: Assessment left breast abscess S/P I and D HTN atrial fibrillation hypothyroidism history of diverticulitis Plan Continue Vancomycin - patient can be switched to PO Doxycycline when ready for discharge will monitor clinically
[2017-07-16] MEDS: Vancomycin 1gm in NS 250ml 1 GM/250 ML BAG IVPB SCH ×2 (00:05→12:25)
[2017-07-16] MEDS: Enoxaparin 60 mg Syringe SC SCH ×2 (05:27→17:18)
[2017-07-16 08:16] VITALS: RESP 20
[2017-07-16 08:20] LABS: ALB/GLOB RATIO 1.1 (1.1-1.8); ALBUMIN 3.6 g/dL (3.0-4.8); ALT/SGPT 23 U/L (7-56); AST/SGOT 20 U/L (14-36); BLOOD UREA NITROGEN 7 mg/dL (7-21); CALCIUM 9.1 mg/dL (8.4-10.5); GFR AFRICAN-AMERICAN > 60; GFR NON-AFRICAN AMERICAN > 60
[2017-07-16 08:45] LABS: BASO # 0.02 [, K/mm3] (0.0-2.0); BASO % 0.4 % (0.0-3.0); EOS # 0.1 (0.0-0.7); EOS % 1.8 % (1.5-5.0); GRAN # 3.32 (1.4-6.5); GRAN % 67.3 % (50.0-68.0); HEMOGLOBIN 11.4 g/dL (12.0-16.0); LYMPH # 0.9 (1.2-3.4); LYMPH % 18.4 % (22.0-35.0); MEAN CORPUSCULAR HEMOGLOBIN 28.4 pg (25.0-35.0); MEAN CORPUSCULAR HGB CONC 32.3 g/dl (31.0-37.0); MEAN PLATELET VOLUME 12.3 fl (7.0-11.0); MONO # 0.6 (0.1-0.6); MONO % 12.1 % (1.0-6.0); RBC 4.01 [, 10^6/uL] (3.5-6.1); RED CELL DISTRIBUTION WIDTH 14.3 % (11.5-14.5); WHITE BLOOD COUNT 4.9 [, 10^3/ul] (4.5-11.0)
[2017-07-16] MEDS ORDERED: Potassium Chloride 20 mEq ER Tab PO ONE (09:02)
[2017-07-16 09:07] LABS: PROTHROMBIN TIME 12.7 SECONDS (9.4-12.5)
[2017-07-16 09:08] LABS: INR 1.1 (0.93-1.08)
[2017-07-16] MEDS: Levothyroxine 88 MCG TAB PO SCH (09:45)
--- NOTE | 2017-07-16 19:50 | CP.PCM.DIS ---
<AdamGraham - Last Filed: 07/16/17 19:45> Provider - Provider Date of Admission: 07/12/17 11:28 Attending physician: Joi Aguilar MD Primary care physician: Jordi Segal MD Consults: ID: [id number] Surgery: Sam Time Spent in preparation of Discharge (in minutes): 45 Diagnosis - Discharge Diagnosis (1) Breast abscess Status: Acute (2) Cellulitis of breast Status: Acute (3) Supratherapeutic INR Status: Acute Hospital Course - Lab Results Lab Results: Micro Results 07/14/17 09:00 Other: Please Indicate Anaerobic Culture - Final NO ANAEROBES ISOLATED. 07/12/17 20:00 Urine Urine Culture - Final No Growth (<1,000 CFU/ML) 07/12/17 12:45 Naris MRSA Culture (Admit) - Final MRSA NOT DETECTED Most Recent Lab Values WBC 4.9 10^3/ul (4.5-11.0) 07/16/17 07:30 RBC 4.01 10^6/uL (3.5-6.1) 07/16/17 07:30 Hgb 11.4 g/dL (12.0-16.0) L 07/16/17 07:30 Hct 35.3 % (36.0-48.0) L 07/16/17 07:30 MCV 88.0 fl (80.0-105.0) 07/16/17 07:30 MCH 28.4 pg (25.0-35.0) 07/16/17 07:30 MCHC 32.3 g/dl (31.0-37.0) 07/16/17 07:30 RDW 14.3 % (11.5-14.5) 07/16/17 07:30 Plt Count 192 10^3/uL (120.0-450.0) 07/16/17 07:30 MPV 12.3 fl (7.0-11.0) H 07/16/17 07:30 Gran % 67.3 % (50.0-68.0) 07/16/17 07:30 Lymph % (Auto) 18.4 % (22.0-35.0) L 07/16/17 07:30 [place] % (Auto) 12.1 % (1.0-6.0) H 07/16/17 07:30 Eos % (Auto) 1.8 % (1.5-5.0) 07/16/17 07:30 Baso % (Auto) 0.4 % (0.0-3.0) 07/16/17 07:30 Gran # 3.32 (1.4-6.5) 07/16/17 07:30 Lymph # 0.9 (1.2-3.4) L 07/16/17 07:30 [place] # 0.6 (0.1-0.6) 07/16/17 07:30 Eos # 0.1 (0.0-0.7) 07/16/17 07:30 Baso # 0.02 K/mm3 (0.0-2.0) 07/16/17 07:30 PT 12.7 SECONDS (9.4-12.5) H 07/16/17 07:30 INR 1.10 (0.93-1.08) H 07/16/17 07:30 APTT 32.3 Seconds (25.1-36.5) 07/13/17 06:00 Sodium 141 mmol/L (132-148) 07/16/17 07:30 Potassium 3.4 mmol/L (3.6-5.0) L 07/16/17 07:30 Chloride 103 mmol/L (98-107) 07/16/17 07:30 Carbon Dioxide 27 mmol/L (21-33) 07/16/17 07:30 Anion Gap 14 (10-20) 07/16/17 07:30 BUN 7 mg/dL (7-21) 07/16/17 07:30 Creatinine 0.7 mg/dl (0.7-1.2) 07/16/17 07:30 Est GFR ( Amer) > 60 07/16/17 07:30 Est GFR (Non-Af Amer) > 60 07/16/17 07:30 POC Glucose (mg/dL) 151 mg/dL (65-110) H 07/14/17 11:36 Random Glucose 94 mg/dL (70-110) 07/16/17 07:30 Calcium 9.1 mg/dL (8.4-10.5) 07/16/17 07:30 Phosphorus 2.7 mg/dL (2.5-4.5) 07/13/17 06:00 Magnesium 1.8 mg/dL (1.7-2.2) 07/16/17 09:22 Total Bilirubin 0.9 mg/dL (0.2-1.3) 07/16/17 07:30 AST 20 U/L (14-36) 07/16/17 07:30 ALT 23 U/L (7-56) 07/16/17 07:30 Alkaline Phosphatase 78 U/L (38-126) 07/16/17 07:30 Total Protein 6.8 g/dL (5.8-8.3) 07/16/17 07:30 Albumin 3.6 g/dL (3.0-4.8) 07/16/17 07:30 Globulin 3.2 gm/dL 07/16/17 07:30 Albumin/Globulin Ratio 1.1 (1.1-1.8) 07/16/17 07:30 Urine Color Yellow (YELLOW) 07/12/17 20:00 Urine Appearance Clear (CLEAR) 07/12/17 20:00 Urine pH 6.5 (4.7-8.0) 07/12/17 20:00 Ur Specific [place] 1.015 (1.005-1.035) 07/12/17 20:00 Urine Protein Negative mg/dL (<30 mg/dL) 07/12/17 20:00 Urine Glucose (UA) Negative mg/dL (NEGATIVE) 07/12/17 20:00 Urine Ketones Negative mg/dL (NEGATIVE) 07/12/17 20:00 Urine Blood Trace-intact (NEGATIVE) H 07/12/17 20:00 Urine Nitrate Negative (NEGATIVE) 07/12/17 20:00 Urine Bilirubin Negative (NEGATIVE) 07/12/17 20:00 Urine Urobilinogen 1.0 E.U./dL (<1 E.U./dL) H 07/12/17 20:00 Ur Leukocyte Esterase Negative Kiera/uL (NEGATIVE) 07/12/17 20:00 Urine RBC 0 - 2 /hpf (0-2) 07/12/17 20:00 Urine WBC Negative /hpf (0-6) 07/12/17 20:00 Ur Epithelial Cells 0 - 2 /hpf (0-5) 07/12/17 20:00 HIV 1&2 Ag/Ab, 4th Gen Nonreactive (Nonreactive) 07/12/17 12:40 Blood Type O POSITIVE 07/13/17 14:21 Antibody Screen Negative 07/13/17 14:21 BBK History Checked Patient has bt 07/13/17 14:21 - Hospital Course Hospital Course: 71 yo F with PMH of HTN, A-fib, ML disc degeneration, hypothyroidism, diverticulitis presents complaining of a painful left breast mass that has been growing for the prior 5 days. US in the ED showed fluid collection consistent with abscess. Patient was started on IV antibiotics and fluids. Coumadin was reverse and patient went for I&D of the abscess. Patient required help with wound care, and is unable to care for it herself, and is being transferred to the TCU for further wound care. Patient has been restarted on coumadin, with lovenox for bridging, with daily INR checks. Today, patient feels well overall, with no particular complaints. She denies any fever, chills, nausea. She reports some bleeding with dressing changes which concerns her. She was reassured that this amount of bleeding is normal, and her H&H has been stable. Patient was discharged to TCU Discharge Exam - Head Exam Head Exam: NORMAL INSPECTION - Eye Exam Eye Exam: EOMI, Normal appearance, PERRL - ENT Exam ENT Exam: Mucous Membranes Moist - Neck Exam Neck exam: Normal Inspection - Respiratory Exam Respiratory Exam: Clear to PA & Lateral, NORMAL BREATHING PATTERN - Cardiovascular Exam Cardiovascular Exam: REGULAR RHYTHM, +S1, +S2 - GI/Abdominal Exam GI & Abdominal Exam: Normal Bowel Sounds, Soft. absent: Tenderness - Extremities Exam Extremities exam: normal inspection - Neurological Exam Neurological exam: Alert, CN II-XII Intact, Oriented x3 - Psychiatric Exam Psychiatric exam: Normal Affect, Normal Mood - Skin Skin Exam: Dry, Intact Additional comments: wound under left breast appears clean, dressing with some blood, not saturated. Some mild tenderness surrounding the wound, without erythema, warmth, or purulence. Discharge Plan - Discharge Medications Prescriptions: Apixaban [Eliquis] 5 mg PO BID #6 tab Doxycycline Hyclate 100 mg PO BID #14 capsule - Follow Up Plan Condition: FAIR Disposition: TRANSF TO SNF Instructions: Cellulitis (ED), Incision and Drainage (DC) Additional Instructions: Patient is being discharged to TCU for wound care. Continue all medications as prescribed. Continue daily dressing changes. Referrals: Jordi Segal MD [Primary Care Provider] - Keenan Vincent MD [Medical Doctor] - <Joi Aguilar - Last Filed: 07/17/17 13:50> Provider - Provider Date of Admission: 07/12/17 11:28 Attending physician: Joi Aguilar MD Primary care physician: Jordi Segal MD Hospital Course - Lab Results Lab Results: Micro Results 07/14/17 09:00 Other: Please Indicate Anaerobic Culture - Final NO ANAEROBES ISOLATED. 07/12/17 20:00 Urine Urine Culture - Final No Growth (<1,000 CFU/ML) 07/12/17 12:45 Naris MRSA Culture (Admit) - Final MRSA NOT DETECTED Most Recent Lab Values WBC 4.9 10^3/ul (4.5-11.0) 07/16/17 07:30 RBC 4.01 10^6/uL (3.5-6.1) 07/16/17 07:30 Hgb 11.4 g/dL (12.0-16.0) L 07/16/17 07:30 Hct 35.3 % (36.0-48.0) L 07/16/17 07:30 MCV 88.0 fl (80.0-105.0) 07/16/17 07:30 MCH 28.4 pg (25.0-35.0) 07/16/17 07:30 MCHC 32.3 g/dl (31.0-37.0) 07/16/17 07:30 RDW 14.3 % (11.5-14.5) 07/16/17 07:30 Plt Count 192 10^3/uL (120.0-450.0) 07/16/17 07:30 MPV 12.3 fl (7.0-11.0) H 07/16/17 07:30 Gran % 67.3 % (50.0-68.0) 07/16/17 07:30 Lymph % (Auto) 18.4 % (22.0-35.0) L 07/16/17 07:30 [place] % (Auto) 12.1 % (1.0-6.0) H 07/16/17 07:30 Eos % (Auto) 1.8 % (1.5-5.0) 07/16/17 07:30 Baso % (Auto) 0.4 % (0.0-3.0) 07/16/17 07:30 Gran # 3.32 (1.4-6.5) 07/16/17 07:30 Lymph # 0.9 (1.2-3.4) L 07/16/17 07:30 [place] # 0.6 (0.1-0.6) 07/16/17 07:30 Eos # 0.1 (0.0-0.7) 07/16/17 07:30 Baso # 0.02 K/mm3 (0.0-2.0) 07/16/17 07:30 PT 12.7 SECONDS (9.4-12.5) H 07/16/17 07:30 INR 1.10 (0.93-1.08) H 07/16/17 07:30 APTT 32.3 Seconds (25.1-36.5) 07/13/17 06:00 Sodium 141 mmol/L (132-148) 07/16/17 07:30 Potassium 3.4 mmol/L (3.6-5.0) L 07/16/17 07:30 Chloride 103 mmol/L (98-107) 07/16/17 07:30 Carbon Dioxide 27 mmol/L (21-33) 07/16/17 07:30 Anion Gap 14 (10-20) 07/16/17 07:30 BUN 7 mg/dL (7-21) 07/16/17 07:30 Creatinine 0.7 mg/dl (0.7-1.2) 07/16/17 07:30 Est GFR ( Amer) > 60 07/16/17 07:30 Est GFR (Non-Af Amer) > 60 07/16/17 07:30 POC Glucose (mg/dL) 151 mg/dL (65-110) H 07/14/17 11:36 Random Glucose 94 mg/dL (70-110) 07/16/17 07:30 Calcium 9.1 mg/dL (8.4-10.5) 07/16/17 07:30 Phosphorus 2.7 mg/dL (2.5-4.5) 07/13/17 06:00 Magnesium 1.8 mg/dL (1.7-2.2) 07/16/17 09:22 Total Bilirubin 0.9 mg/dL (0.2-1.3) 07/16/17 07:30 AST 20 U/L (14-36) 07/16/17 07:30 ALT 23 U/L (7-56) 07/16/17 07:30 Alkaline Phosphatase 78 U/L (38-126) 07/16/17 07:30 Total Protein 6.8 g/dL (5.8-8.3) 07/16/17 07:30 Albumin 3.6 g/dL (3.0-4.8) 07/16/17 07:30 Globulin 3.2 gm/dL 07/16/17 07:30 Albumin/Globulin Ratio 1.1 (1.1-1.8) 07/16/17 07:30 Urine Color Yellow (YELLOW) 07/12/17 20:00 Urine Appearance Clear (CLEAR) 07/12/17 20:00 Urine pH 6.5 (4.7-8.0) 07/12/17 20:00 Ur Specific [place] 1.015 (1.005-1.035) 07/12/17 20:00 Urine Protein Negative mg/dL (<30 mg/dL) 07/12/17 20:00 Urine Glucose (UA) Negative mg/dL (NEGATIVE) 07/12/17 20:00 Urine Ketones Negative mg/dL (NEGATIVE) 07/12/17 20:00 Urine Blood Trace-intact (NEGATIVE) H 07/12/17 20:00 Urine Nitrate Negative (NEGATIVE) 07/12/17 20:00 Urine Bilirubin Negative (NEGATIVE) 07/12/17 20:00 Urine Urobilinogen 1.0 E.U./dL (<1 E.U./dL) H 07/12/17 20:00 Ur Leukocyte Esterase Negative Kiera/uL (NEGATIVE) 07/12/17 20:00 Urine RBC 0 - 2 /hpf (0-2) 07/12/17 20:00 Urine WBC Negative /hpf (0-6) 07/12/17 20:00 Ur Epithelial Cells 0 - 2 /hpf (0-5) 07/12/17 20:00 HIV 1&2 Ag/Ab, 4th Gen Nonreactive (Nonreactive) 07/12/17 12:40 Blood Type O POSITIVE 07/13/17 14:21 Antibody Screen Negative 07/13/17 14:21 BBK History Checked Patient has bt 07/13/17 14:21 Attending/Attestation - Attestation I have personally seen and examined this patient.: Yes I have fully participated in the care of the patient.: Yes I have reviewed all pertinent clinical information, including history, physical exam and plan: Yes Notes (Text): I have seen and examined the patient at bedside with the resident. Agree with the above note with the following additions/ exceptions: Briefly this is 71 year old female with history of hypertension, atrial fibrillation, sciatica, hypothyroidism, diverticulitis who was admitted for evaluation of left painful breast abscess s/p I&D. Continue vancomycin. As per surgery patient needs daily packing. Patients will go to TCU tonight. She also has atrial fibrillation and is on coumadin/ lovenox until INR is therapeutic. Plan was discussed in detail with the patient and her . Upon discharge patient will follow up with PMD Dr. Segal. Dr Joi Aguilar
[2017-07-16 21:31] VITALS: BP 152/94; PULSE 65; TEMP 98.5; O2SAT 99
--- NOTE | 2017-07-17 01:07 | PN ---
DATE: 07/16/2017 SUBJECTIVE: The patient seen early this morning in room 265, bed 2. No fevers. No chills. No nausea. Doing well. PHYSICAL EXAMINATION: VITAL SIGNS: Temperature is 98, blood pressure is 150/70, respiratory rate of 16, heart rate of 65. HEENT: Unremarkable. NECK: Supple. LUNGS: Have decreased breath sounds. HEART: Normal S1, S2. ABDOMEN: Soft. LABORATORY DATA: White count is noted. Chemistries are noted. Urinalysis is reviewed. HIV is negative. Microbiology is negative. ASSESSMENT AND PLAN: This is a 71-year-old female with hypertension, atrial fibrillation, hypothyroidism, diverticulitis, left breast abscess, status post incision and drainage. May discharge on p.o. doxycycline, as discussed with residents. Bill Card MD
--- NOTE | 2017-07-17 04:50 | OP ---
PROCEDURE DATE: 07/13/2017 PREOPERATIVE DIAGNOSES: 1. Left breast Abscess. 2. Left breast cellulitis. POSTOPERATIVE DIAGNOSES: 1. Left breast abscess 2. Left breast cellulitis. 3. Infected left breast sebaceous cyst at site of abscess. PROCEDURES: 1. Incision and drainage of left breast abscess. 2. Excision of left breast sebaceous cyst approximately 2 x 3 cm size. 3. Left breast biopsy. SURGEON: Keenan Vincent MD [employer] OPERATOR: Lazara Mckoy, PGY-3 resident. TYPE OF ANESTHESIA: Location anesthesia plus sedation. ESTIMATED BLOOD LOSS: Around 20 mL. DRAINS: None. PATHOLOGY: 1. Pus was sent for culture and sensitivity. 2. Sebaceous cyst content was sent for the pathology. 3. The thickened left breast tissue was sent for the biopsy. COMPLICATIONS: None. INTRAOPERATIVE FINDINGS: The patient had large left breast abscess with cellulitis, and the patient also had underlying sebaceous cyst and the surrounding breast tissue was abnormally thickened and edematous and that was biopsied. On intraoperative steps, this 71-year-old female was diagnosed with left breast cellulitis and abscess, and the patient was consented for incision and drainage of left breast abscess and possible debridement and brought to the OR, placed supine on the operating table. DESCRIPTION OF PROCEDURE: After induction of the sedation, the left breast was prepped and draped in the usual sterile fashion, local anesthesia was injected. The local anesthesia was injected, and an elliptical incision was made surrounding the breast abscess area. Abscess cavity was entered, and the pus was drained off approximately 10 mL, and the patient had underlying sebaceous cyst that was excised. The cyst content as well as wall were sent for the pathology. Now the surrounding left breast area was extremely thickened and abnormally white colored and that was also excised, and it was sent off for the pathology to rule out malignancy. After the proper hemostasis, the wound was irrigated and packed with Iodoform packing, and dry sterile dressing was applied. The patient tolerated the procedure well. Count of the instrument and gauze was correct. There was no apparent complication. The patient was reversed from sedation and sent to the postanesthesia care unit in stable condition. Keenan Vincent MD [email or web address]
== END 2017-07-16 22:10 | DRG 585 ==
LOC: ED 08:16 → ERH 11:28 → 3RSO 13:56 → 3RNO 07-15 18:48
PROVIDERS: ADMIT Internal Medicine; ATTEND Hospitalist
PROC: 0H9U0ZZ Drainage of Left Breast, Open Approach (ICD-10-PCS; 2017-07-13)
PROC: 30233K1 Transfusion of Nonautologous Frozen Plasma into Peripheral Vein, Percutaneous Approach (ICD-10-PCS; 2017-07-13)
PROC: 0HBU0ZZ Excision of Left Breast, Open Approach (ICD-10-PCS; principal; 2017-07-13 15:15)
DX: N61.1 Abscess of the breast and nipple (principal); I48.2 Chronic atrial fibrillation; N60.82 Other benign mammary dysplasias of left breast; E03.9 Hypothyroidism, unspecified; I10 Essential (primary) hypertension; M19.90 Unspecified osteoarthritis, unspecified site; R79.1 Abnormal coagulation profile; Z79.01 Long term (current) use of anticoagulants; E87.6 Hypokalemia

== ENCOUNTER 2017-07-16 22:12 | Inpatient (IN) | payer OTHER ==
[2017-07-16 22:28] VITALS: BMI 23.2
[2017-07-17] MEDS: Enoxaparin 60 mg Syringe SC SCH ×2 (05:39→17:57)
[2017-07-17] MEDS: Levothyroxine 88 MCG TAB PO SCH (05:39)
[2017-07-17] MEDS ORDERED: Levothyroxine 88 MCG TAB PO SCH (06:00)
[2017-07-17] MEDS: Vancomycin 1gm in NS 250ml 1 GM/250 ML BAG IVPB SCH ×2 (06:02→17:58)
--- NOTE | 2017-07-17 06:03 | CP.PCM.CON ---
History of Present Illness - History of Present Illness History of Present Illness: General Surgery- Dr. Vincent 71 F w/ PMHx of A-Fib on coumadin, hypothyroidism, and diverticululosis presents to [facility] with 6 days of left breast pain. 6 days prior to admission pt noticed some swelling beneath her left breast that has gradually enlarged, become hard, and tender to touch. She reports that the pain is worst with palpation or movement of the left breast and is something she has never experienced in the past. She denies any recent trauma to the area, use of new clothing/bras, or anything that may have precipitated the swelling to the breast. Pt was taken to the OR on 07/13/17 for I&D of left breast abscess. Tolerated procedure well, and starting daily packing changes denies current: fever, chills, bleeding, nipple discharge, or drainage from the area. previous imaging; age-appropriate mammograms, negative for breast malignancy. Furthermore, the patient reports undergoing an extensive work up for the unintentional, fifty pound weight loss she has endured in the past year. Chart review a host of diagnostic test, including, but not limited to colonoscopy, upper endoscopy, and pancreatic CT scan- all of which have been negative for malignancy. most recent breast US and mammogram on 08/24/16 showed complex subcutaneous cyst likely sebaceous cyst 7x11mm. BIRADS 2. Surgical history: Colonoscopy, EGD, left heart cath PMH: HTN, A-fib, ML disc degeneration, hypothyroidism, diverticulitis Allergies: NKDA SocHx: Denies smoking, etoh, illicits FamHx: Non-contributory Review of Systems - Review of Systems All systems: reviewed and no additional remarkable complaints except - Constitutional Constitutional: As Per HPI Past Patient History - Infectious Disease Hx of Infectious Diseases: None - Past Social History Smoking Status: Never Smoked - CARDIAC Hx Cardiac Disorders: Yes (afib, s/p cardiac cath) Hx Hypertension: Yes - PULMONARY Hx Respiratory Disorders: No - NEUROLOGICAL Hx Neurological Disorder: No - HEENT Hx HEENT Problems: (glasses for reading, [place]) Hx Cataracts: Yes (b/l sx) - RENAL Hx Chronic Kidney Disease: No - ENDOCRINE/METABOLIC Hx Endocrine Disorders: Yes Hx Hypothyroidism: Yes - HEMATOLOGICAL/ONCOLOGICAL Hx Blood Disorders: No - INTEGUMENTARY Hx Dermatological Problems: No - MUSCULOSKELETAL/RHEUMATOLOGICAL Hx Falls: No - GASTROINTESTINAL Hx Gastrointestinal Disorders: Yes (CONSTIPATION,LOST 40 LBS WITHIN 2 MONTHS) Hx Diverticulitis: Yes (02/08/12) Other/Comment: pt denies constipation,poor appetite, 40 lb weight loss 2015 and 5 lbs 2016 total of 45 lbs not on purpose, colonoscopy done 05/31/17 dx diverticulosis, hemorrhoids, gastritis - GENITOURINARY/GYNECOLOGICAL Hx Genitourinary Disorders: Yes (URINARY FREQUENCY,UTERINE PROLAPSE) - PSYCHIATRIC Hx Psychophysiologic Disorder: No - SURGICAL HISTORY Hx Surgeries: No Hx Cardiac Catheterization: Yes (01/24/17 due to abnormal stress test) - ANESTHESIA Hx Anesthesia Reactions: No Hx Malignant Hyperthermia: No Meds Allergies/Adverse Reactions: Allergies Allergy/AdvReac Type Severity Reaction Status Date / Time No Known Allergies Allergy Verified 07/12/17 12:14 - Medications Medications: Current Medications Acetaminophen (Tylenol 325mg Tab) 650 mg PO Q6H PRN; Protocol PRN Reason: Pain, Mild (1-3) Enoxaparin Sodium (Lovenox) 60 mg SC Q12H ANGELITA PRN Reason: Protocol Last Admin: 07/17/17 05:39 Dose: 60 mg Hydrochlorothiazide (Hydrodiuril) 25 mg PO DAILY ANGELITA PRN Reason: Protocol Vancomycin HCl (Vancomycin 1gm) 1 gm in 250 mls @ 167 mls/hr IVPB Q12H ANGELITA PRN Reason: Protocol Levothyroxine Sodium (Synthroid) 88 mcg PO 0600 ANGELITA PRN Reason: Protocol Last Admin: 07/17/17 05:39 Dose: 88 mcg Lisinopril (Zestril) 20 mg PO DAILY ANGELITA PRN Reason: Protocol Physical Exam - Constitutional Appears: Non-toxic, No Acute Distress - Head Exam Head Exam: ATRAUMATIC - Eye Exam Eye Exam: EOMI. absent: Scleral icterus - ENT Exam ENT Exam: Mucous Membranes Moist - Respiratory Exam Respiratory Exam: NORMAL BREATHING PATTERN. absent: Accessory Muscle Use, Respiratory Distress - Cardiovascular Exam Cardiovascular Exam: +S1, +S2. absent: Bradycardia, Tachycardia - GI/Abdominal Exam GI & Abdominal Exam: Soft. absent: Distended, Firm, Guarding, Rigid, Tenderness - Extremities Exam Extremities exam: Positive for: normal inspection. Negative for: calf tenderness - Neurological Exam Neurological exam: Alert, Oriented x3 - Skin Skin Exam: Dry, Warm Additional comments: left breast incision; dressing C/D/I packing changed at bedside Results - Vital Signs Recent Vital Signs: Last Vital Signs Temp 98 F 07/16/17 22:32 Pulse 52 L 07/16/17 22:32 Resp 20 07/16/17 22:32 BP 153/72 H 07/16/17 22:32 Pulse Ox Assessment & Plan - Assessment and Plan (Free Text) Assessment: 71F s/p L breast I&D for infected sebaceous cyst on 07/13/17 Plan: - cleared to [place] home from surgical standpoint - daily packing changes - f/u with Dr. Vincent in 1 week - d/w Dr. Vincent surgical attending Eliud Miller PGY1
[2017-07-17 09:31] LABS: ALB/GLOB RATIO 1.2 (1.1-1.8); ALBUMIN 3.9 g/dL (3.0-4.8); ALT/SGPT 28 U/L (7-56); AST/SGOT 27 U/L (14-36); BLOOD UREA NITROGEN 12 mg/dL (7-21); CALCIUM 9.8 mg/dL (8.4-10.5); GFR AFRICAN-AMERICAN > 60; GFR NON-AFRICAN AMERICAN > 60
[2017-07-17 09:35] LABS: BASO # 0.04 K/mm3 (0.0-2.0); BASO % 0.7 % (0.0-3.0); EOS # 0.1 (0.0-0.7); EOS % 1.4 % (1.5-5.0); GRAN # 3.83 (1.4-6.5); HEMOGLOBIN 12.1 g/dL (12.0-16.0); LYMPH % 18.5 % (22.0-35.0); MEAN CELL VOLUME 88.9 fl (80.0-105.0); MEAN CORPUSCULAR HEMOGLOBIN 28.5 pg (25.0-35.0); MEAN CORPUSCULAR HGB CONC 32.1 g/dl (31.0-37.0); MEAN PLATELET VOLUME 12.2 fl (7.0-11.0); MONO # 0.6 (0.1-0.6); MONO % 10.4 % (1.0-6.0); RBC 4.24 10^6/uL (3.5-6.1); RED CELL DISTRIBUTION WIDTH 14.6 % (11.5-14.5); WHITE BLOOD COUNT 5.6 10^3/ul (4.5-11.0)
[2017-07-17 10:19] LABS: INR 1.27 (0.93-1.08); PROTHROMBIN TIME 14.7 SECONDS (9.4-12.5)
--- NOTE | 2017-07-17 11:46 | CP.PCM.HP ---
<Graham Medina - Last Filed: 07/17/17 13:27> History of Present Illness - History of Present Illness History of Present Illness: Graham Adam CUETO PGY1 - Internal Medicine H&P CC: Wound care s/p I&D of left breast abscess HPI 71 yo F with PMHx of A-Fib on coumadin, hypothyroidism, and diverticululosis who initially presented to [facility] with 5 days of left breast pain. 5 days prior to admission pt noticed some swelling beneath her left breast that has gradually enlarged, become hard, and tender to touch. On admission, patient had US of the breast which showed a fluid collection consistent with abscess. Patient was started on IV antibiotics and was taken to the OR for incision and drainage. She tolerated the procedure well and has had daily packing changes since. She was initially supratherapeutic on admission, which was reversed for the procedure, and is now undergoing bridging with lovenox while restarting coumadin. Today, she denies any new symptoms; no fever , chills, pain, chest pain, shortness of breath, bleeding. She was transferred to TCU for continued wound care and IV antibiotics Of note, the patient reports undergoing an extensive work up for an unintentional, fifty pound weight loss over the past year. Chart review reveals workup including mammograms, bloodwork, colonoscopy, upper endoscopy, and pancreatic CT scan - all of which have been negative for malignancy. 12 point ROS was obtained as was negative except as in HPI Surgical history: Colonoscopy, EGD, left heart cath PMH: HTN, A-fib, ML disc degeneration, hypothyroidism, diverticulitis Allergies: NKDA SocHx: Denies smoking, etoh, illicits FamHx: Non-contributory PMD: Dr. Segal Cardio: Dr. Castanon GI: [facility]: [facility] and [facility] Present on Admission - Present on Admission Any Indicators Present on Admission: No Past Patient History - Infectious Disease Hx of Infectious Diseases: None - Past Social History Smoking Status: Never Smoked - CARDIAC Hx Cardiac Disorders: Yes (afib, s/p cardiac cath) Hx Hypertension: Yes - PULMONARY Hx Respiratory Disorders: No - NEUROLOGICAL Hx Neurological Disorder: No - HEENT Hx HEENT Problems: (glasses for reading, [place]) Hx Cataracts: Yes (b/l sx) - RENAL Hx Chronic Kidney Disease: No - ENDOCRINE/METABOLIC Hx Endocrine Disorders: Yes Hx Hypothyroidism: Yes - HEMATOLOGICAL/ONCOLOGICAL Hx Blood Disorders: No - INTEGUMENTARY Hx Dermatological Problems: No - MUSCULOSKELETAL/RHEUMATOLOGICAL Hx Falls: No - GASTROINTESTINAL Hx Gastrointestinal Disorders: Yes (CONSTIPATION,LOST 40 LBS WITHIN 2 MONTHS) Hx Diverticulitis: Yes (02/08/12) Other/Comment: pt denies constipation,poor appetite, 40 lb weight loss 2015 and 5 lbs 2016 total of 45 lbs not on purpose, colonoscopy done 05/31/17 dx diverticulosis, hemorrhoids, gastritis - GENITOURINARY/GYNECOLOGICAL Hx Genitourinary Disorders: Yes (URINARY FREQUENCY,UTERINE PROLAPSE) - PSYCHIATRIC Hx Psychophysiologic Disorder: No - SURGICAL HISTORY Hx Surgeries: No Hx Cardiac Catheterization: Yes (01/24/17 due to abnormal stress test) - ANESTHESIA Hx Anesthesia Reactions: No Hx Malignant Hyperthermia: No Meds Allergies/Adverse Reactions: Allergies Allergy/AdvReac Type Severity Reaction Status Date / Time No Known Allergies Allergy Verified 07/12/17 12:14 Physical Exam - Constitutional Appears: Non-toxic, No Acute Distress - Head Exam Head Exam: ATRAUMATIC, NORMOCEPHALIC - Eye Exam Eye Exam: EOMI, Normal appearance, PERRL - ENT Exam ENT Exam: Mucous Membranes Moist - Neck Exam Neck exam: Positive for: Normal Inspection - Respiratory Exam Respiratory Exam: Clear to Auscultation Bilateral, NORMAL BREATHING PATTERN - Cardiovascular Exam Cardiovascular Exam: Irregular Rhythm, +S1, +S2. absent: Tachycardia - GI/Abdominal Exam GI & Abdominal Exam: Normal Bowel Sounds, Soft. absent: Tenderness - Extremities Exam Extremities exam: Negative for: calf tenderness, pedal edema - Back Exam Back exam: NORMAL INSPECTION - Neurological Exam Neurological exam: Alert, Oriented x3 - Psychiatric Exam Psychiatric exam: Normal Affect, Normal Mood - Skin Skin Exam: Dry, Intact, Normal Color Additional comments: Wound under left breast appears clean, dressing with some blood, not saturated. Some mild tenderness surrounding the wound, without erythema, warmth, or purulence. Results - Vital Signs Recent Vital Signs: Last Vital Signs Temp 98 F 07/17/17 06:00 Pulse 64 07/17/17 08:59 Resp 16 07/17/17 06:00 BP 141/72 07/17/17 08:59 Pulse Ox 98 07/17/17 06:00 - Labs Result Diagrams: 07/17/17 09:00 07/17/17 09:00 Labs: Laboratory Results - last 24 hr 07/17/17 07/17/17 07/17/17 09:00 09:00 09:00 WBC 5.6 RBC 4.24 Hgb 12.1 Hct 37.7 MCV 88.9 MCH 28.5 MCHC 32.1 RDW 14.6 H Plt Count 205 MPV 12.2 H Gran % 69.0 H Lymph % (Auto) 18.5 L [place] % (Auto) 10.4 H Eos % (Auto) 1.4 L Baso % (Auto) 0.7 Gran # 3.83 Lymph # 1.0 L [place] # 0.6 Eos # 0.1 Baso # 0.04 PT 14.7 H INR 1.27 H Sodium 140 Potassium 3.8 Chloride 103 Carbon Dioxide 31 Anion Gap 11 BUN 12 Creatinine 0.9 Est GFR ( Amer) > 60 Est GFR (Non-Af Amer) > 60 Random Glucose 149 H Calcium 9.8 Total Bilirubin 0.6 AST 27 ALT 28 Alkaline Phosphatase 72 Total Protein 7.1 Albumin 3.9 Globulin 3.3 Albumin/Globulin Ratio 1.2 Assessment & Plan - Assessment and Plan (Free Text) Assessment: 71 yo F with PMH of HTN, A-fib, ML disc degeneration, hypothyroidism, diverticulitis presents complaining of a painful left breast mass that has been growing for the prior 5 days. s/p I&D of breast abscess Plan Left breast abscess - s/p incision and drainage - Patient transferred to TCU for further wound care and IV antibiotics - Some small amount of bleeding, bright red blood in the dressing. No purulence. Mild pain and tenderness around the wound - Patient remains afebrile with no leukocytosis - Continue Vancomycin d6 - Tylenol PRN for fever - ID consult requested; appreciate recs - Surgery consult requested; appreciate recs Atrial fibrillation - Patient is currently rate controlled - INR remains subtherapeutic; continue bridging - Received one dose of coumadin 10mg yesterday, will repeat 10mg today and recheck INR in AM HTN - Continue home lisinopril/HCTZ Hypothyroidism - Continue home Synthroid GI/DVT PPx: SCDs and Lovenox/Coumadin. Pepcid for GI. Patient seen, discussed, and reviewed with attending Joi Breaux - Last Filed: 07/17/17 15:08> Results - Vital Signs Recent Vital Signs: Last Vital Signs Temp 98 F 07/17/17 06:00 Pulse 64 07/17/17 08:59 Resp 16 07/17/17 06:00 BP 141/72 07/17/17 08:59 Pulse Ox 98 07/17/17 06:00 - Labs Result Diagrams: 07/17/17 09:00 07/17/17 09:00 Labs: Laboratory Results - last 24 hr 07/17/17 07/17/17 07/17/17 09:00 09:00 09:00 WBC 5.6 RBC 4.24 Hgb 12.1 Hct 37.7 MCV 88.9 MCH 28.5 MCHC 32.1 RDW 14.6 H Plt Count 205 MPV 12.2 H Gran % 69.0 H Lymph % (Auto) 18.5 L [place] % (Auto) 10.4 H Eos % (Auto) 1.4 L Baso % (Auto) 0.7 Gran # 3.83 Lymph # 1.0 L [place] # 0.6 Eos # 0.1 Baso # 0.04 PT 14.7 H INR 1.27 H Sodium 140 Potassium 3.8 Chloride 103 Carbon Dioxide 31 Anion Gap 11 BUN 12 Creatinine 0.9 Est GFR ( Amer) > 60 Est GFR (Non-Af Amer) > 60 Random Glucose 149 H Calcium 9.8 Total Bilirubin 0.6 AST 27 ALT 28 Alkaline Phosphatase 72 Total Protein 7.1 Albumin 3.9 Globulin 3.3 Albumin/Globulin Ratio 1.2 07/17/17 13:50 WBC RBC Hgb Hct MCV MCH MCHC RDW Plt Count MPV Gran % Lymph % (Auto) [place] % (Auto) Eos % (Auto) Baso % (Auto) Gran # Lymph # [place] # Eos # Baso # PT 15.7 H INR 1.39 H Sodium Potassium Chloride Carbon Dioxide Anion Gap BUN Creatinine Est GFR ( Amer) Est GFR (Non-Af Amer) Random Glucose Calcium Total Bilirubin AST ALT Alkaline Phosphatase Total Protein Albumin Globulin Albumin/Globulin Ratio Attending/Attestation - Attestation I have personally seen and examined this patient.: Yes I have fully participated in the care of the patient.: Yes I have reviewed all pertinent clinical information: Yes Notes (Text): I have seen and examined the patient at bedside with the resident. Agree with the above note with the following additions/ exceptions: Briefly this is 71 year old female with history of hypertension, atrial fibrillation, sciatica, hypothyroidism, diverticulitis who is admitted to TCU for rehab and also need daily packing changes. She was initially admitted to the medical floor for evaluation of left painful breast abscess s/p I&D. She remains on vancomycin. She also has atrial fibrillation and is on coumadin/ lovenox until INR is therapeutic. Plan was discussed in detail with the patient and her . Upon discharge patient will follow up with PMD Dr. Segal. Dr Joi Aguilar
[2017-07-17 14:35] LABS: INR 1.39 (0.93-1.08); PROTHROMBIN TIME 15.7 SECONDS (9.4-12.5)
[2017-07-18] MEDS: Enoxaparin 60 mg Syringe SC SCH ×2 (05:28→17:59)
[2017-07-18] MEDS: Vancomycin 1gm in NS 250ml 1 GM/250 ML BAG IVPB SCH ×2 (05:28→18:00)
[2017-07-18] MEDS: Levothyroxine 88 MCG TAB PO SCH (05:29)
--- NOTE | 2017-07-18 09:01 | CON ---
DATE: 07/17/2017 LOCATION: Room 322. CHIEF COMPLAINT: Breast wound infection times several days. HISTORY OF PRESENT ILLNESS: This is a 71-year-old female with past medical history significant for atrial fibrillation, hypertension, hypothyroidism, diverticulitis, history of cardiac catheterization and bilateral cataract surgery. There is no know allergies, was admitted, was found to have a left breast/chest wall border abscess with cellulitis and had an incision and drainage and now transferred to transitional care for further care. REVIEW OF SYSTEMS: Reveals no fevers, no chills, no nausea, no vomiting. PAST MEDICAL HISTORY: Significant for atrial fibrillation, hypertension, hypothyroidism and diverticulitis. PAST SURGICAL HISTORY: Significant for cardiac catheterization and bilateral cataract surgery. ALLERGIES: THE PATIENT HAS NO KNOWN ALLERGIES. PHYSICAL EXAMINATION: VITAL SIGNS: Temperature 98, blood pressure is 140/60, respiratory rate of 18, and heart rate of 70. HEENT: Unremarkable. NECK: Supple. LUNGS: Have decreased breath sounds. HEART: Normal S1 and S2. ABDOMEN: Soft and nontender. BREASTS: There is a packing that appears to be clean. LABORATORY DATA: Reveals the patient to have white count of 5.6, hemoglobin of 12 and platelets of 205. The patient's sed rate was 4. Coagulation is noted. BUN of 11, creatinine of 0.9. Urinalysis is noted. HIV is nonreactive. Microbiology reveals the patient aerobic culture, no growth. Nasal MRSA is negative. The blood cultures are no growth. Urine cultures are negative. The patient's pathology revealed left breast abscess and infected cyst, ruptured, and cleaned epidermal inclusion cyst with abscess and reactive fibroblasts. ASSESSMENT AND PLAN: A 71-year-old female with hypertension, atrial fibrillation, hypothyroidism, diverticulitis with left breast, the border where the breast meets the chest wall base of the left breast abscess status post incision and drainage, now in transitional care for a wound care and currently on vancomycin. May be able to switch to p.o. doxycycline to complete a short course here. I discussed with Dr. Miles and currently on vancomycin, will be changed to p.o. doxycycline next 24 hours. Bill Card MD
[2017-07-18 14:05] LABS: INR 1.97 (0.93-1.08)
--- NOTE | 2017-07-18 19:12 | CP.PCM.PN ---
Subjective - Date & Time of Evaluation Date of Evaluation: 07/18/17 Time of Evaluation: 11:45 - Subjective Subjective: Comfortable, doing her physical therapy well, less pain in the left breast. Objective - Vital Signs/Intake and Output Vital Signs (last 24 hours): Temp Pulse Resp BP Pulse Ox 97.8 F 76 17 128/75 97 07/18/17 05:42 07/18/17 05:42 07/18/17 05:42 07/18/17 05:42 07/18/17 05:42 - Medications Medications: Current Medications Acetaminophen (Tylenol 325mg Tab) 650 mg PO Q6H PRN; Protocol PRN Reason: Pain, Mild (1-3) Enoxaparin Sodium (Lovenox) 60 mg SC Q12H ANGELITA PRN Reason: Protocol Last Admin: 07/18/17 05:28 Dose: 60 mg Hydrochlorothiazide (Hydrodiuril) 25 mg PO DAILY ANGELITA PRN Reason: Protocol Last Admin: 07/17/17 09:00 Dose: 25 mg Vancomycin HCl (Vancomycin 1gm) 1 gm in 250 mls @ 167 mls/hr IVPB Q12H ANGELITA PRN Reason: Protocol Last Admin: 07/18/17 05:28 Dose: 167 mls/hr Levothyroxine Sodium (Synthroid) 88 mcg PO 0600 ANGELITA PRN Reason: Protocol Last Admin: 07/18/17 05:29 Dose: 88 mcg Lisinopril (Zestril) 20 mg PO DAILY ANGELITA PRN Reason: Protocol Last Admin: 07/17/17 08:59 Dose: 20 mg - Labs Labs: 07/17/17 09:00 07/17/17 09:00 PT 15.7 SECONDS (9.4-12.5) H 07/17/17 13:50 INR 1.39 (0.93-1.08) H 07/17/17 13:50 - Constitutional Appears: Non-toxic - Head Exam Head Exam: NORMAL INSPECTION - Respiratory Exam Respiratory Exam: Decreased Breath Sounds - Cardiovascular Exam Cardiovascular Exam: +S1, +S2 - GI/Abdominal Exam GI & Abdominal Exam: Soft. absent: Tenderness Assessment and Plan - Assessment and Plan (Free Text) Plan: Assessment left breast abscess S/P I and D HTN atrial fibrillation hypothyroidism history of diverticulitis Plan we have switched the patient to PO Doxycycline and will monitor clinically
[2017-07-19] MEDS: Enoxaparin 60 mg Syringe SC SCH (05:52)
[2017-07-19] MEDS: Levothyroxine 88 MCG TAB PO SCH (05:52)
[2017-07-19 07:21] LABS: BASO # 0.02 K/mm3 (0.0-2.0); BASO % 0.3 % (0.0-3.0); EOS # 0.1 (0.0-0.7); EOS % 1.1 % (1.5-5.0); GRAN # 4.21 (1.4-6.5); GRAN % 69.2 % (50.0-68.0); LYMPH # 1.1 (1.2-3.4); LYMPH % 18.6 % (22.0-35.0); MEAN CELL VOLUME 88.3 fl (80.0-105.0); MEAN CORPUSCULAR HEMOGLOBIN 28.7 pg (25.0-35.0); MEAN CORPUSCULAR HGB CONC 32.5 g/dl (31.0-37.0); MONO # 0.7 (0.1-0.6); MONO % 10.8 % (1.0-6.0); RBC 3.83 10^6/uL (3.5-6.1); RED CELL DISTRIBUTION WIDTH 14.7 % (11.5-14.5); WHITE BLOOD COUNT 6.1 10^3/ul (4.5-11.0)
[2017-07-19 07:36] LABS: ALB/GLOB RATIO 1.1 (1.1-1.8); ALBUMIN 3.4 g/dL (3.0-4.8); CALCIUM 9.4 mg/dL (8.4-10.5)
[2017-07-19] MEDS ORDERED: Potassium Chloride 20 mEq ER Tab PO ONE (08:38)
[2017-07-19 09:06] LABS: INR 2.18 (0.93-1.08); PROTHROMBIN TIME 25.5 SECONDS (9.4-12.5)
--- NOTE | 2017-07-19 09:33 | CP.PCM.PN ---
<Graham Medina - Last Filed: 07/19/17 17:49> Subjective - Date & Time of Evaluation Date of Evaluation: 07/19/17 Time of Evaluation: 07:30 - Subjective Subjective: Stephanevinodlisandro Adam DO PGY1 - IM Progress Note Patient seen and examined at bedside. No acute events overnight. Patient reports some mild pain over the wound, as well as bleeding with dressing changes. She denies any chest pain, shortness of breath, fever, chills, nausea, vomiting, diarrhea, constipation, abdominal pain. Objective - Vital Signs/Intake and Output Vital Signs (last 24 hours): Temp Pulse Resp BP Pulse Ox 98.3 F 64 16 157/72 H 97 07/18/17 10:00 07/19/17 09:08 07/18/17 10:00 07/19/17 09:08 07/18/17 05:42 - Medications Medications: Current Medications Acetaminophen (Tylenol 325mg Tab) 650 mg PO Q6H PRN; Protocol PRN Reason: Pain, Mild (1-3) Doxycycline Hyclate (Doryx) 100 mg PO Q12 ANGELITA PRN Reason: Protocol Last Admin: 07/19/17 09:08 Dose: 100 mg Hydrochlorothiazide (Hydrodiuril) 25 mg PO DAILY ANGELITA PRN Reason: Protocol Last Admin: 07/19/17 09:08 Dose: 25 mg Levothyroxine Sodium (Synthroid) [address] [facility] PRN Reason: Protocol Last Admin: 07/19/17 05:52 Dose: 88 mcg Lisinopril (Zestril) 20 mg PO DAILY ANGELITA PRN Reason: Protocol Last Admin: 07/19/17 09:08 Dose: 20 mg Warfarin Sodium (Coumadin) [address] [facility] PRN Reason: Protocol Last Admin: 07/18/17 17:59 Dose: 5 mg - Labs Labs: 07/19/17 06:20 07/19/17 06:20 PT 25.5 SECONDS (9.4-12.5) H 07/19/17 08:30 INR 2.18 (0.93-1.08) H 07/19/17 08:30 - Constitutional Appears: Non-toxic, No Acute Distress - Head Exam Head Exam: ATRAUMATIC, NORMOCEPHALIC - Eye Exam Eye Exam: EOMI, Normal appearance, PERRL - ENT Exam ENT Exam: Mucous Membranes Moist - Respiratory Exam Respiratory Exam: Clear to Ausculation Bilateral, NORMAL BREATHING PATTERN - Cardiovascular Exam Cardiovascular Exam: Irregular Rhythm, +S1, +S2. absent: Tachycardia - GI/Abdominal Exam GI & Abdominal Exam: Soft, Normal Bowel Sounds. absent: Tenderness - Extremities Exam Extremities Exam: Normal Inspection. absent: Calf Tenderness, Pedal Edema - Neurological Exam Neurological Exam: Alert, Awake, Oriented x3 - Psychiatric Exam Psychiatric exam: Normal Affect, Normal Mood - Skin Skin Exam: Dry Additional comments: Dressing over left breast I&D wound appears clean, dry, and intact. Not saturated with blood Assessment and Plan - Assessment and Plan (Free Text) Assessment: 71 yo F with PMH of HTN, A-fib, ML disc degeneration, hypothyroidism, diverticulitis presents complaining of a painful left breast mass that has been growing for the prior 5 days. s/p I&D of breast abscess Plan Left breast abscess s/p I&D - Dressing appears clean, dry, and intact; dressing no longer saturated with blood. No purulence. Mild pain and tenderness around the wound - Continue daily dressing changes - Switched to PO doxy; per ID - Tylenol PRN for fever - ID consult requested; appreciate recs - Surgery consult requested; appreciate recs Atrial fibrillation - Patient is currently rate controlled - INR now in therapeutic range; discontinue lovenox - Continue coumadin 5mg daily - Daily INR checks HTN - Continue home lisinopril/HCTZ Hypothyroidism - Continue home Synthroid GI/DVT PPx: SCDs and Coumadin. Pepcid for GI. Patient seen, discussed, and reviewed with attending Dr. Aguilar <Joi Aguilar B - Last Filed: 07/25/17 14:51> Objective - Vital Signs/Intake and Output Vital Signs (last 24 hours): Temp Pulse Resp BP Pulse Ox 97.5 F L 60 18 103/49 L 98 07/22/17 11:20 07/22/17 11:20 07/22/17 11:20 07/22/17 11:20 07/22/17 11:20 - Labs Labs: 07/21/17 07:00 07/21/17 07:00 PT 24.9 SECONDS (9.4-12.5) H 07/22/17 07:20 INR 2.13 (0.93-1.08) H 07/22/17 07:20 Attending/Attestation - Attestation I have personally seen and examined this patient.: Yes I have fully participated in the care of the patient.: Yes I have reviewed all pertinent clinical information, including history, physical exam and plan: Yes Notes (Text): I have seen and examined the patient at bedside with the resident. Agree with the above note with the following additions/ exceptions: Briefly this is 71 year old female with history of hypertension, atrial fibrillation, sciatica, hypothyroidism, diverticulitis who is admitted to TCU for rehab and also need daily packing changes. She was initially admitted to the medical floor for evaluation of left painful breast abscess s/p I&D. She remains on vancomycin. She also has atrial fibrillation and is on coumadin. INR is therapeutic today so we will discontinue lovenox. Plan was discussed in detail with the patient and her . Upon discharge patient will follow up with PMD Dr. Segal. Dr Joi Aguilar
--- NOTE | 2017-07-20 00:12 | PN ---
DATE: 07/19/2017 SUBJECTIVE: The patient is in bed, in no acute distress. Nontoxic. PHYSICAL EXAMINATION: VITAL SIGNS: Temperature is 98, blood pressure is 150/70 and respiratory rate of 18. HEENT: Unremarkable. NECK: Supple. LUNGS: Have decreased breath sounds. HEART: Normal S1 and S2. LABORATORY DATA: Reveals a white count of 6, hemoglobin of 11, and platelets of 175. Coagulation is noted. Chemistries reveal the BUN of 16, creatinine of 1.2. ASSESSMENT AND PLAN: This is 71-year-old female seen early this morning in 322 with left breast abscess, status post incision and drainage with hypertension currently on p.o. doxycycline, local wound care. Bill Card MD
[2017-07-20] MEDS: Levothyroxine 88 MCG TAB PO SCH (05:13)
[2017-07-20 07:52] LABS: INR 2.03 (0.93-1.08); PROTHROMBIN TIME 23.7 SECONDS (9.4-12.5)
--- NOTE | 2017-07-20 13:52 | PN ---
DATE: SUBJECTIVE: The patient is in bed, in no acute distress, nontoxic. The patient was seen earlier this morning. PHYSICAL EXAMINATION: VITAL SIGNS: Temperature is 98, blood pressure is 120/70, and respiratory rate is 16. HEENT: Unremarkable. NECK: Supple. LUNGS: Decreased breath sounds. HEART: Normal S1 and S2. ABDOMEN: Soft. LABORATORY DATA: Noted. Microbiology is reviewed. and the anaerobic cultures. White count of 6.1. Current review of medications reveals the patient to be on p.o. doxycycline. ASSESSMENT AND PLAN: This is a 71-year-old female, seen early this morning in room 328 with left breast abscess, status post incision and drainage, and hypertension. We will discontinue doxycycline in next 24-48 hours and local wound care. Bill Card MD
[2017-07-21] MEDS: Levothyroxine 88 MCG TAB PO SCH (05:33)
[2017-07-21 07:27] LABS: BASO # 0.04 K/mm3 (0.0-2.0); BASO % 0.8 % (0.0-3.0); EOS # 0.1 (0.0-0.7); EOS % 1.1 % (1.5-5.0); GRAN # 3.62 (1.4-6.5); HEMOGLOBIN 11.1 g/dL (12.0-16.0); LYMPH # 1.2 (1.2-3.4); LYMPH % 21.6 % (22.0-35.0); MEAN CELL VOLUME 89.3 fl (80.0-105.0); MEAN CORPUSCULAR HEMOGLOBIN 28.3 pg (25.0-35.0); MEAN CORPUSCULAR HGB CONC 31.7 g/dl (31.0-37.0); MEAN PLATELET VOLUME 11.5 fl (7.0-11.0); MONO # 0.5 (0.1-0.6); MONO % 8.5 % (1.0-6.0); RBC 3.92 10^6/uL (3.5-6.1); WHITE BLOOD COUNT 5.3 10^3/ul (4.5-11.0)
[2017-07-21 07:39] LABS: INR 1.91 (0.93-1.08); PROTHROMBIN TIME 22.3 SECONDS (9.4-12.5)
[2017-07-21 08:08] LABS: ALB/GLOB RATIO 1.2 (1.1-1.8); ALBUMIN 3.6 g/dL (3.0-4.8)
--- NOTE | 2017-07-21 16:24 | CP.PCM.PN ---
<Graham Medina - Last Filed: 07/21/17 16:21> Subjective - Date & Time of Evaluation Date of Evaluation: 07/21/17 Time of Evaluation: 07:30 - Subjective Subjective: Graham Adam DO PGY1 - IM [facility]te Patient seen and examined at bedside. No acute events overnight. Patient reports improvement in pain over the wound, with less bleeding. Denies any drainage. Denies fever, chills, nausea, abdominal pain, dysuria, diarrhea. Objective - Vital Signs/Intake and Output Vital Signs (last 24 hours): Temp Pulse Resp BP Pulse Ox 98.2 F 70 16 124/53 L 99 07/21/17 10:00 07/21/17 10:00 07/21/17 10:00 07/21/17 10:00 07/21/17 10:00 Intake and Output: 07/21/17 07/21/17 06:59 18:59 Intake Total 500 Balance 500 - Medications Medications: Current Medications Acetaminophen (Tylenol 325mg Tab) 650 mg PO Q6H PRN; Protocol PRN Reason: Pain, Mild (1-3) Doxycycline Hyclate (Doryx) 100 mg PO Q12 ANGELITA PRN Reason: Protocol Last Admin: 07/21/17 09:02 Dose: 100 mg Hydrochlorothiazide (Hydrodiuril) 25 mg PO DAILY ANGELITA PRN Reason: Protocol Last Admin: 07/21/17 09:02 Dose: 25 mg Levothyroxine Sodium (Synthroid) 88 mcg PO 0600 ANGELITA PRN Reason: Protocol Last Admin: 07/21/17 05:33 Dose: 88 mcg Lisinopril (Zestril) 20 mg PO DAILY ANGELITA PRN Reason: Protocol Last Admin: 07/21/17 09:02 Dose: 20 mg Warfarin Sodium (Coumadin) 5 mg PO 1800 ANGELITA PRN Reason: Protocol Last Admin: 07/20/17 17:29 Dose: 5 mg - Labs Labs: 07/21/17 07:00 07/21/17 07:00 PT 22.3 SECONDS (9.4-12.5) H 07/21/17 07:00 INR 1.91 (0.93-1.08) H 07/21/17 07:00 - Constitutional Appears: Non-toxic, No Acute Distress - Head Exam Head Exam: ATRAUMATIC, NORMOCEPHALIC - Eye Exam Eye Exam: EOMI, Normal appearance - ENT Exam ENT Exam: Mucous Membranes Moist - Respiratory Exam Respiratory Exam: Clear to Ausculation Bilateral, NORMAL BREATHING PATTERN - Cardiovascular Exam Cardiovascular Exam: Irregular Rhythm, +S1, +S2 - GI/Abdominal Exam GI & Abdominal Exam: Soft, Normal Bowel Sounds. absent: Tenderness - Extremities Exam Extremities Exam: Normal Inspection. absent: Calf Tenderness, Pedal Edema - Neurological Exam Neurological Exam: Alert, Awake, Oriented x3 - Psychiatric Exam Psychiatric exam: Normal Affect, Normal Mood - Skin Skin Exam: Dry, Intact Additional comments: Dressing over left breast wound with scant blood. No tenderness. Assessment and Plan - Assessment and Plan (Free Text) Assessment: 71 yo F with PMH of HTN, A-fib, ML disc degeneration, hypothyroidism, diverticulitis presents complaining of a painful left breast mass that has been growing for the prior 5 days. s/p I&D of breast abscess Plan Left breast abscess s/p I&D - Dressing appears clean, dry, and intact; dressing with only scant blood. No purulence. No tenderness. - Continue daily dressing changes; per surgery, packing no longer necessary; follow up with Dr. Vargas 1 week after discharge - Continue PO Doxycycline for one more day per ID - Tylenol PRN for fever/pain - ID on consult; appreciate recs - Surgery on consult; appreciate recs Atrial fibrillation - Patient is currently rate controlled - Continue coumadin 5mg daily - Daily INR checks HTN - Continue home lisinopril/HCTZ Hypothyroidism - Continue home Synthroid GI/DVT PPx: SCDs and Coumadin. Pepcid for GI. Patient seen, discussed, and reviewed with attending Dr. Kelsey <Maggie Kelsey - Last Filed: 07/21/17 17:42> Objective - Vital Signs/Intake and Output Vital Signs (last 24 hours): Temp Pulse Resp BP Pulse Ox 98.2 F 70 16 124/53 L 99 07/21/17 10:00 07/21/17 10:00 07/21/17 10:00 07/21/17 10:00 07/21/17 10:00 Intake and Output: 07/21/17 07/21/17 06:59 18:59 Intake Total 500 Balance 500 - Medications Medications: Current Medications Acetaminophen (Tylenol 325mg Tab) 650 mg PO Q6H PRN; Protocol PRN Reason: Pain, Mild (1-3) Doxycycline Hyclate (Doryx) 100 mg PO Q12 ANGELITA PRN Reason: Protocol Last Admin: 07/21/17 09:02 Dose: 100 mg Hydrochlorothiazide (Hydrodiuril) 25 mg PO DAILY ANGELITA PRN Reason: Protocol Last Admin: 07/21/17 09:02 Dose: 25 mg Levothyroxine Sodium (Synthroid) 88 mcg PO 0600 ANGELITA PRN Reason: Protocol Last Admin: 07/21/17 05:33 Dose: 88 mcg Lisinopril (Zestril) 20 mg PO DAILY ANGELITA PRN Reason: Protocol Last Admin: 07/21/17 09:02 Dose: 20 mg Warfarin Sodium (Coumadin) 5 mg PO 1800 ANGELITA PRN Reason: Protocol Last Admin: 07/20/17 17:29 Dose: 5 mg - Labs Labs: 07/21/17 07:00 07/21/17 07:00 PT 22.3 SECONDS (9.4-12.5) H 07/21/17 07:00 INR 1.91 (0.93-1.08) H 07/21/17 07:00 Attending/Attestation - Attestation I have personally seen and examined this patient.: Yes I have fully participated in the care of the patient.: Yes I have reviewed all pertinent clinical information, including history, physical exam and plan: Yes Notes (Text): 07/21/17 17:40 attending note; Patient seen and examined with resident. patient is a 71 year old female with history of hypertension, atrial fibrillation, sciatica, hypothyroidism, diverticulitis who is admitted to TCU for rehab patient hasLeft breast abscess drainage. currently getting daily dressing change. No need for Packing as per surgery. nurse to educate the family about dressing change. Continue po doxycycline. atrial fibrillation; INR is therapeutic. Continue Coumadin. Plan was discussed in detail with the patient and her . Possible discharge home tomorrow. Upon discharge patient will follow up with PMD Dr. Segal.
--- NOTE | 2017-07-21 22:05 | PN ---
DATE: 07/21/2017 SUBJECTIVE: The patient is in bed, in no acute distress, and nontoxic. PHYSICAL EXAMINATION: VITAL SIGNS: Temperature is 98, blood pressure is 120/50, and respiratory rate is 16. HEENT: Unremarkable. NECK: Supple. LUNGS: Has decreased breath sounds. HEART: Normal S1 and S2. ABDOMEN: Soft and nontender. LABORATORY DATA: Reveals white count of 5.3, hemoglobin of 11, and platelets of 170. Coagulation is noted. Chemistry reveals a BUN of 24 and creatinine of 1.2. Microbiology is noted. ASSESSMENT AND PLAN: This is a 71-year-old female who was seen early this morning in room 322 who had left breast abscess, status post incision and drainage antibiotics. The patient is on p.o. doxycycline. We will continue the doxycycline for the next 24 to 48 hours. local wound care. Bill Card MD
[2017-07-22] MEDS: Levothyroxine 88 MCG TAB PO SCH (05:27)
[2017-07-22 06:19] VITALS: RESP 18; O2SAT 98
[2017-07-22 07:56] LABS: INR 2.13 (0.93-1.08); PROTHROMBIN TIME 24.9 SECONDS (9.4-12.5)
[2017-07-22 09:25] VITALS: PULSE 60
[2017-07-22 10:30] VITALS: TEMP 97.5
[2017-07-22 11:21] VITALS: BP 103/49
--- NOTE | 2017-07-22 21:46 | CP.PCM.DIS ---
<Graham Medina - Last Filed: 07/22/17 21:42> Provider - Provider Date of Admission: 07/16/17 22:12 Attending physician: Maggie Kelsey MD Primary care physician: Jordi Segal MD Consults: ID: [id number] GS: Sam Time Spent in preparation of Discharge (in minutes): 45 Diagnosis - Discharge Diagnosis (1) Breast abscess Status: Acute Hospital Course - Lab Results Lab Results: Most Recent Lab Values WBC 5.3 10^3/ul (4.5-11.0) 07/21/17 07:00 RBC 3.92 10^6/uL (3.5-6.1) 07/21/17 07:00 Hgb 11.1 g/dL (12.0-16.0) L 07/21/17 07:00 Hct 35.0 % (36.0-48.0) L 07/21/17 07:00 MCV 89.3 fl (80.0-105.0) 07/21/17 07:00 MCH 28.3 pg (25.0-35.0) 07/21/17 07:00 MCHC 31.7 g/dl (31.0-37.0) 07/21/17 07:00 RDW 15.0 % (11.5-14.5) H 07/21/17 07:00 Plt Count 170 10^3/uL (120.0-450.0) 07/21/17 07:00 MPV 11.5 fl (7.0-11.0) H 07/21/17 07:00 Gran % 68.0 % (50.0-68.0) 07/21/17 07:00 Lymph % (Auto) 21.6 % (22.0-35.0) L 07/21/17 07:00 [place] % (Auto) 8.5 % (1.0-6.0) H 07/21/17 07:00 Eos % (Auto) 1.1 % (1.5-5.0) L 07/21/17 07:00 Baso % (Auto) 0.8 % (0.0-3.0) 07/21/17 07:00 Gran # 3.62 (1.4-6.5) 07/21/17 07:00 Lymph # 1.2 (1.2-3.4) 07/21/17 07:00 [place] # 0.5 (0.1-0.6) 07/21/17 07:00 Eos # 0.1 (0.0-0.7) 07/21/17 07:00 Baso # 0.04 K/mm3 (0.0-2.0) 07/21/17 07:00 PT 24.9 SECONDS (9.4-12.5) H 07/22/17 07:20 INR 2.13 (0.93-1.08) H 07/22/17 07:20 Sodium 138 mmol/L (132-148) 07/21/17 07:00 Potassium 3.6 mmol/L (3.6-5.0) 07/21/17 07:00 Chloride 99 mmol/L (98-107) 07/21/17 07:00 Carbon Dioxide 32 mmol/L (21-33) 07/21/17 07:00 Anion Gap 11 (10-20) 07/21/17 07:00 BUN 24 mg/dL (7-21) H 07/21/17 07:00 Creatinine 1.2 mg/dl (0.7-1.2) 07/21/17 07:00 Est GFR ( Amer) 53 07/21/17 07:00 Est GFR (Non-Af Amer) 44 07/21/17 07:00 Random Glucose 95 mg/dL (70-110) 07/21/17 07:00 Calcium 10.0 mg/dL (8.4-10.5) 07/21/17 07:00 Total Bilirubin 0.6 mg/dL (0.2-1.3) 07/21/17 07:00 AST 44 U/L (14-36) H 07/21/17 07:00 ALT 54 U/L (7-56) 07/21/17 07:00 Alkaline Phosphatase 72 U/L (38-126) 07/21/17 07:00 Total Protein 6.6 g/dL (5.8-8.3) 07/21/17 07:00 Albumin 3.6 g/dL (3.0-4.8) 07/21/17 07:00 Globulin 3.0 gm/dL 07/21/17 07:00 Albumin/Globulin Ratio 1.2 (1.1-1.8) 07/21/17 07:00 - Hospital Course Hospital Course: 71 yo F with PMH of HTN, A-fib, ML disc degeneration, hypothyroidism, diverticulitis who had initially presented to [facility] complaining of a painful left breast mass that has been growing for the prior 5 days. Patient was treated on the medical floors for a breast abscess, had I&D, and completed a course of antibiotics. She was also treated for atrial fibrilliation, anticoagulated on coumadin. She was transferred to the TCU for wound care and continued antibiotics and monitoring of INR while bridging. Today, patient feels well overall, with no particular complaints. She denies any fever, chills, nausea, pain over the wound, chest pain, shortness of breath , palpitations. She completed the course of antibiotics, and no longer needs packing, per the surgical team, only superficial dressing changes. She was given dressing supplies, and all questions were answered to satisfaction. She was instructed to follow up with her PMD and Dr. Vargas in one week, and then discharged to home. Discharge Exam - Head Exam Head Exam: ATRAUMATIC, NORMOCEPHALIC Discharge Plan - Follow Up Plan Condition: GOOD Disposition: HOME/ ROUTINE Instructions: Atrial Fibrillation (DC), Diverticulitis (DC), Acute Wound Care ( DC), Chronic Hypertension (DC) Additional Instructions: 1. Continue daily dressing changes for one week, as instructed in the hospital; for any concerns, return to ER 2. Follow up with Dr. Vargas in one week 3. Follow up with your primary care doctor (Dr. Segal) in one week 4. Continue taking all medications as prescribed 5. For any new or worsening concerns, contact your PCP immediately or return to ER Referrals: Jordi Segal MD [Primary Care Provider] - Keenan Vincent MD [Medical Doctor] - <Maggie Kelsey - Last Filed: 07/23/17 14:12> Provider - Provider Date of Admission: 07/16/17 22:12 Attending physician: Maggie Kelsey MD Primary care physician: Jordi Segal MD Hospital Course - Lab Results Lab Results: Most Recent Lab Values WBC 5.3 10^3/ul (4.5-11.0) 07/21/17 07:00 RBC 3.92 10^6/uL (3.5-6.1) 07/21/17 07:00 Hgb 11.1 g/dL (12.0-16.0) L 07/21/17 07:00 Hct 35.0 % (36.0-48.0) L 07/21/17 07:00 MCV 89.3 fl (80.0-105.0) 07/21/17 07:00 MCH 28.3 pg (25.0-35.0) 07/21/17 07:00 MCHC 31.7 g/dl (31.0-37.0) 07/21/17 07:00 RDW 15.0 % (11.5-14.5) H 07/21/17 07:00 Plt Count 170 10^3/uL (120.0-450.0) 07/21/17 07:00 MPV 11.5 fl (7.0-11.0) H 07/21/17 07:00 Gran % 68.0 % (50.0-68.0) 07/21/17 07:00 Lymph % (Auto) 21.6 % (22.0-35.0) L 07/21/17 07:00 [place] % (Auto) 8.5 % (1.0-6.0) H 07/21/17 07:00 Eos % (Auto) 1.1 % (1.5-5.0) L 07/21/17 07:00 Baso % (Auto) 0.8 % (0.0-3.0) 07/21/17 07:00 Gran # 3.62 (1.4-6.5) 07/21/17 07:00 Lymph # 1.2 (1.2-3.4) 07/21/17 07:00 [place] # 0.5 (0.1-0.6) 07/21/17 07:00 Eos # 0.1 (0.0-0.7) 07/21/17 07:00 Baso # 0.04 K/mm3 (0.0-2.0) 07/21/17 07:00 PT 24.9 SECONDS (9.4-12.5) H 07/22/17 07:20 INR 2.13 (0.93-1.08) H 07/22/17 07:20 Sodium 138 mmol/L (132-148) 07/21/17 07:00 Potassium 3.6 mmol/L (3.6-5.0) 07/21/17 07:00 Chloride 99 mmol/L (98-107) 07/21/17 07:00 Carbon Dioxide 32 mmol/L (21-33) 07/21/17 07:00 Anion Gap 11 (10-20) 07/21/17 07:00 BUN 24 mg/dL (7-21) H 07/21/17 07:00 Creatinine 1.2 mg/dl (0.7-1.2) 07/21/17 07:00 Est GFR ( Amer) 53 07/21/17 07:00 Est GFR (Non-Af Amer) 44 07/21/17 07:00 Random Glucose 95 mg/dL (70-110) 07/21/17 07:00 Calcium 10.0 mg/dL (8.4-10.5) 07/21/17 07:00 Total Bilirubin 0.6 mg/dL (0.2-1.3) 07/21/17 07:00 AST 44 U/L (14-36) H 07/21/17 07:00 ALT 54 U/L (7-56) 07/21/17 07:00 Alkaline Phosphatase 72 U/L (38-126) 07/21/17 07:00 Total Protein 6.6 g/dL (5.8-8.3) 07/21/17 07:00 Albumin 3.6 g/dL (3.0-4.8) 07/21/17 07:00 Globulin 3.0 gm/dL 07/21/17 07:00 Albumin/Globulin Ratio 1.2 (1.1-1.8) 07/21/17 07:00 Attending/Attestation - Attestation I have personally seen and examined this patient.: Yes I have fully participated in the care of the patient.: Yes I have reviewed all pertinent clinical information, including history, physical exam and plan: Yes Notes (Text): 07/23/17 14:11 attending note; Patient seen and examined with resident. patient is a 71 year old female with history of hypertension, atrial fibrillation, sciatica, hypothyroidism, diverticulitis who is admitted to TCU for rehab patient has Left breast abscess drainage. currently getting daily dressing change. No need for Packing as per surgery. Nurse educated the family about dressing change. supplies given. Completed anti-biotics. atrial fibrillation; INR is therapeutic. Continue Coumadin. Possible discharge home today. case discussed with PMD in detail. Upon discharge patient will follow up with PMD Dr. Segal.
== END 2017-07-22 13:44 | disposition home or self-care (01) | DRG 601 ==
LOC: TRCU 22:12
PROVIDERS: ADMIT Hospitalist; ATTEND Internal Medicine
PROC: F07Z9ZZ Gait Training/Functional Ambulation Treatment (ICD-10-PCS; principal; 2017-07-17)
PROC: F08Z4ZZ Home Management Treatment (ICD-10-PCS; 2017-07-18)
DX: N61.1 Abscess of the breast and nipple (principal); Z79.2 Long term (current) use of antibiotics; I48.91 Unspecified atrial fibrillation; E03.9 Hypothyroidism, unspecified; I10 Essential (primary) hypertension; M54.30 Sciatica, unspecified side; Z79.01 Long term (current) use of anticoagulants

== ENCOUNTER 2017-09-06 06:03 | Day surgery (SDC) | payer MEDICARE, OTHER ==
[2017-08-30 13:16] VITALS: BMI 22.1
[2017-09-06 06:48] VITALS: RESP 18
[2017-09-06 06:51] LABS: INR 1.14 (0.93-1.08); PROTHROMBIN TIME 13.1 SECONDS (9.4-12.5)
[2017-09-06] MEDS ORDERED: Bupivacaine 0.5% Inj(30mL) ONE (07:46)
[2017-09-06] MEDS ORDERED: Bupivacaine-Epi 0.25%-1:200,000 PF Inj ONE (07:46)
[2017-09-06] MEDS ORDERED: Lidocaine 1% Inj (20ml) ONE (07:46)
[2017-09-06] MEDS ORDERED: Lidocaine 1% w Epi 1:100,000 Inj ONE (07:48)
[2017-09-06] MEDS ORDERED: Lactated Ringer's 1,000 ML IV SCH (08:30)
--- NOTE | 2017-09-06 08:35 | PCM.SURG1 ---
Surgeon's Initial Post Op Note - Surgeon's Notes Surgeon: Dr. Vincent L[employer] Kiln Operator: Dr. Montaño PGY2 Type of Anesthesia: Local Pre-Operative Diagnosis: sebaceous cyst of right neck Operative Findings: sebaceous cyst of right neck Post-Operative Diagnosis: sebaceous cyst of right neck Operation Performed: excision of sebaceous cyst of right neck Specimen/Specimens Removed: sebaceous cyst Estimated Blood Loss: EBL {In ML}: 5 Blood Products Given: N/A Drains Used: No Drains Post-Op Condition: Good Date of Surgery/Procedure: 09/06/17 Time of Surgery/Procedure: 08:00
--- NOTE | 2017-09-06 08:41 | CP.PCM.DIS ---
Provider - Provider Date of Admission: 09/06/17 Attending physician: Keenan Vincent MD Primary care physician: Jordi Segal MD Time Spent in preparation of Discharge (in minutes): 20 Diagnosis - Discharge Diagnosis (1) Sebaceous cyst Status: Resolved Hospital Course - Lab Results Lab Results: Most Recent Lab Values PT 13.1 SECONDS (9.4-12.5) H 09/06/17 06:25 INR 1.14 (0.93-1.08) H 09/06/17 06:25 - Hospital Course Hospital Course: 71F presented to [facility] for excision of right neck sebaceous cyst. Patient tolerated procedure well with no complications. Instructed to keep area clean and dry for 48 hours. Steri strips will fall off on their own. Follow up in office with Dr. Vincent in one week. Discharge Exam - Head Exam Head Exam: NORMAL INSPECTION - Eye Exam Eye Exam: Normal appearance - ENT Exam ENT Exam: Normal Exam - Neck Exam Additional comments: sebaceous cyst of right neck - Cardiovascular Exam Cardiovascular Exam: +S1, +S2 - GI/Abdominal Exam GI & Abdominal Exam: Soft - Neurological Exam Neurological exam: Alert, Oriented x3 - Psychiatric Exam Psychiatric exam: Normal Mood - Skin Skin Exam: Dry, Intact, Warm Discharge Plan - Follow Up Plan Condition: GOOD Disposition: HOME/ ROUTINE Referrals: Jordi Segal MD [Primary Care Provider] -
[2017-09-06 09:10] VITALS: BP 146/64; PULSE 84; TEMP 98.6; O2SAT 97
--- NOTE | 2017-09-06 17:23 | OP ---
PROCEDURE DATE: 09/06/2017 PREOPERATIVE DIAGNOSIS: Sebaceous cyst of the right upper neck. POSTOPERATIVE DIAGNOSIS: Sebaceous cyst of the right upper neck. PROCEDURE PERFORMED: Excision of the right upper neck sebaceous cyst.2 x 1 cm size. SURGEON: Keenan Vincent M.D. TYPE OF ANESTHESIA: Local anesthesia plus sedation. ESTIMATED BLOOD LOSS: Around 5 mL. DRAIN: None. PATHOLOGY: Sebaceous cyst was sent for the pathology. COMPLICATIONS: None. INTRAOPERATIVE FINDINGS: The patient had approximately 2 x 1 cm sebaceous cyst of the right upper neck. DESCRIPTION OF PROCEDURE: On intraoperative steps, this 71-year-old female who was diagnosed with sebaceous cyst of the right upper neck and the patient was consented for excision of the sebaceous cyst of the right upper neck, brought to the OR, placed supine on operating table. After induction of the mild sedation, local anesthesia was injected. Neck was prepped and draped in the usual sterile fashion before injecting local anesthesia and the patient was prepped and draped and elliptical incision was made. Upper and lower flaps were created and the sebaceous cyst was completely excised and it was sent off as specimen for the pathology. The wound was irrigated and the wound was closed in 2 layers, subcutaneous with 2-0 Vicryl, skin with 4-0 Monocryl and dry sterile dressing was applied. The patient tolerated the procedure well. Count of the instrument was correct. There was no apparent complication. The patient was reversed from sedation and sent to the Postanesthesia Care Unit in stable condition. Keenan Vincent MD DEVEN
== END 2017-09-06 09:22 | disposition home or self-care (01) ==
LOC: SDS 06:03
PROVIDERS: ATTEND Surgery Surgical Critical Care
DX: L72.0 Epidermal cyst (principal); L72.3 Sebaceous cyst; I10 Essential (primary) hypertension; K57.92 Diverticulitis of intestine, part unspecified, without perforation or abscess without bleeding; E03.9 Hypothyroidism, unspecified; I48.91 Unspecified atrial fibrillation; M54.40 Lumbago with sciatica, unspecified side
CPT/HCPCS: 11422; 36415; 85610; 88304; J0690; J7120 ×2

== ENCOUNTER 2018-08-19 07:30 | Outpatient (CLI) | payer MEDICARE | END 2018-08-19 07:31 | disposition home or self-care (01) | LOC: RAD 07:30 ==

== ENCOUNTER 2018-10-05 08:04 | Outpatient (CLI) | payer MEDICARE | END 2018-10-05 08:05 | disposition home or self-care (01) | LOC: LAB 08:04 ==

== ENCOUNTER 2018-10-23 08:15 | Outpatient (CLI) | payer MEDICARE | END 2018-10-23 08:16 | disposition home or self-care (01) | LOC: CARDIO 08:15 ==